=== PATIENT | female | born 2000 ===

== ENCOUNTER 2024-05-31 20:45 | Outpatient (REF) | payer OTHER, SELFPAY ==
[2024-06-11 21:06] LABS: Age Gdln ACOG Testing Note (.); HPV Aptima Positive (Negative); IGP, rfx Aptima HPV ASCU Note (.)
== END 2024-05-31 20:46 | disposition home or self-care (01) ==
LOC: LAB 20:45
PROVIDERS: Visit Provider Obstetrics & Gynecology
DX: Z01.419 Encounter for gynecological examination (general) (routine) without abnormal findings (principal)
CPT/HCPCS: 87624; 88175

== ENCOUNTER 2024-07-13 09:13 | Outpatient (OUT) | payer OTHER, SELFPAY ==
--- OUTSIDE RECORDS SUMMARY | 2024-07-16 09:26 | XMS_ITS | CCD ---
Author Organization [facility] Care Team Providers Care Supervisor Cemetery Workers Name Role Phone Eric Grubbs Primary Care Provider Unavailramiro Grubbs MD, Eric Waters Primary Care Provider Puma CAN, Nichole Primary Care Provider Puma CAN, Nichole Primary Care Provider [phone] Puma CAN, Nichole Primary Care Provider KHAVARI, FERESHTE Primary Care Unavailable KHAVARI, FERESHTE Referring Unavailable KHAVARI, FERESHTE Attending Unavailable SELF, SELF Referring Unavailable KERESTESEARNESTINE Attending Unavailable KHAVARI, FERESHTE Primary Care Unavailable SELF, SELF Referring Unavailable KERESTESEARNESTINE Attending Unavailable KHAVARI, FERESHTE Primary Care Unavailable KHAVARI, FERESHTE Primary Care Unavailable RUDDY RICE Admitting Unavailable RUDDY RICE Consulting Unavailable RUDDY RICE Attending Unavailable KHAVARI, FERESHTE Primary Care Unavailable KHAVARI, FERESHTE Primary Care Unavailable RUDDY RICE Attending Unavailable Puma CAN, Nichole Primary Care Provider ASHLY INFANTE Attending Unavailable KHAVARI, FERESHTE Referring Unavailable KHAVARI, FERESHTE Primary Care Unavailable KHAVARI, FERESHTE Primary Care Unavailable KHAVARI, FERESHTE Attending Unavailable KHAVARI, FERESHTE Referring Unavailable KHAVARI, FERESHTE Primary Care Unavailable KHAVARI, FERESHTE Attending Unavailable KHAVARI, FERESHTE Referring Unavailable KHAVARI, FERESHTE Primary Care Unavailable CHRISTEL COKER Attending Unavailable KHAVARI, FERESHTE Referring Unavailable KHAVARI, FERESHTE Primary Care Unavailable CHRISTEL COKER Admitting Unavailable CHRISTEL COKER Attending Unavailable ZAGHLOOL, CHRISTEL S Referring Unavailable SELF, SELF Referring Unavailable KHAVARI, FERESHTE Primary Care Unavailable KHAVARI, FERESHTE Attending Unavailable SELF, SELF Referring Unavailable KHAVARI, FERESHTE Primary Care Unavailable KHAVARI, FERESHTE Attending Unavailable ARELIS, ASHLY Attending Unavailable ARELIS, ASHLY Referring Unavailable KHAVARI, FERESHTE Primary Care Unavailable FELIPE, KEVON Attending Unavailable CHER CRAWFORD Attending Unavailable FELIPE, KEVON Attending Unavailable FELIPE, KEVON Attending Unavailable FELIPE, KEVON Attending Unavailable Medications Current Medications Medication Drug Class(es) Dates Sig (Normalized) Sig (Original) atomoxetine 40 mg oral capsule (19 sources) Norepinephrine Reuptake Inhibitor Start: 03-12-2024 take 1 capsule by mouth in the morning atomoxetine (Strattera) 40 MG capsule Take 40 mg by mouth in the morning. 03/12/2024 Active Start: 09-09-2023 End: 03-12-2024 take 1 capsule by mouth once daily atomoxetine 25 MG capsule Take 1 capsule by mouth daily. 30 capsule 2 09/09/2023 03/12/2024 Discontinued 24 hr buPROPion hydrochloride 150 mg extended release oral tablet (6 sources) Aminoketone Start: 02-04-2020 take 1 tablet by mouth once daily in the morning buPROPion 150 MG tablet XL Indications: Other specified anxiety disorders Take 1 tablet by mouth daily every morning. 30 tablet 5 02/04/2020 Active Start: 08-19-2019 End: 01-03-2020 take 1 tablet by mouth once daily in the morning buPROPion 150 MG tablet XL Indications: Other specified anxiety disorders Take 1 tablet by mouth daily every morning. 30 tablet 2 08/19/2019 01/03/2020 Discontinued (Reorder) doxycycline hyclate 100 mg oral capsule (1 source) Tetracycline-class Drug Start: 06-26-2022 End: 07-03-2022 take 1 capsule by mouth twice daily doxycycline hyclate 100 MG capsule Indications: Chlamydia infection Take 1 capsule by mouth 2 times daily for 7 days. 14 capsule 0 06/26/2022 07/03/2022 Active fexofenadine / Pseudoephedrine (20 sources) alpha-Adrenergic Agonist, Histamine-1 Receptor Antagonist Fexofenadine-Pse udoephedrine (RODRIGUEZ-D 24 HOUR PO) Take by mouth daily as needed. Active Fexofenadine-Pse udoephedrine (RODRIGUEZ-D 24 HOUR PO) Take by mouth daily as needed. 0 Active hydrOXYzine hydrochloride 25 mg oral tablet (20 sources) Antihistamine Start: 05-07-2022 End: 09-09-2023 take 1 tablet by mouth every twenty-four hours as needed hydrOXYzine HCl (Atarax) 25 MG tablet Take 25 mg by mouth Daily as needed 09/09/2023 Active levonorgestrel 0.120766 mg/hr intrauterine system (12 sources) Progestin, Progestin-containi ng Intrauterine Device Start: 05-03-2024 End: 05-02-2029 Levonorgestrel intrauterine device 52 mg Start: 05-03-2024 End: 05-03-2024 Levonorgestrel intrauterine device 52 mg Start: 05-03-2024 End: 05-03-2024 52 mg, Vaginal, Once PRN Pro cedure, Starting on 05/03/24 at 1130, For 1 dose 24 hr metFORMIN hydrochloride 500 mg extended release oral tablet (11 sources) Biguanide Start: 03-30-2024 End: 03-30-2025 take 1 tablet by mouth every twenty-four hours at mealtime metFORMIN XR (Glucophage-XR) 500 MG 24 hr tablet Indications: Insulin resistance Take 1 tablet (500 mg) by mouth in the evening. Take with meals Do not crush, chew, or split. 30 tablet 03/30/2024 03/30/2025 Active ondansetron 4 mg disintegrating oral tablet (2 sources) Serotonin-3 Receptor Antagonist Start: 04-22-2024 End: 05-22-2024 take 1 tablet by mouth every six hours as needed for nausea and vomiting and nausea and nausea ondansetron ODT (Zofran-ODT) 4 MG disintegrating tablet Indications: Nausea Take 1 tablet (4 mg) by mouth every 6 (six) hours if needed for nausea or vomiting 30 tablet 04/22/2024 05/22/2024 Active End: 02-14-2023 take 1 tablet by mouth once daily, then take 0.5 tablet by mouth once daily Ondansetron 4 MG tablet Take 1 tablet by mouth daily. 1/2 tab daily 0 02/14/2023 Discontinued phentermine hydrochloride 37.5 mg oral tablet (20 sources) Sympathomimetic Amine Anorectic Start: 05-03-2024 End: 07-28-2024 take 1 tablet by mouth before mealtime phentermine (Adipex-P) 37.5 MG tablet Indications: Encounter for weight management Take 1 tablet (37.5 mg) by mouth in the morning. Take before meals. 30 tablet 06/28/2024 07/28/2024 Active Start: 04-10-2021 End: 02-07-2022 take 1 tablet by mouth once daily before breakfast phentermine 37.5 MG tablet Indications: Obesity, Class II, BMI 35-39.9 , Chronic back pain, unspecified back location, unspecified back pain laterality Take 1 tablet by mouth every morning before breakfast. 30 tablet 0 04/10/2021 02/07/2022 Discontinued (Therapy completed) spironolactone 100 mg oral tablet (20 sources) Aldosterone Antagonist take 1 tablet by mouth in the morning spironolactone (Aldactone) 100 MG tablet Take 100 mg by mouth in the morning. Active Tirzepatide 2.5 MG/0.5ML Solution Pen-injector (2 sources) Start: 024 inject 2.5 mg by subcutaneous injection every week Tirzepatide 2.5 MG/0.5ML Solution Pen-injector Inject 2.5 mg under the skin once a week. 2 mL 03/12/2024 Active Start: 03-12-2024 End: 03-12-2024 inject 2.5 mg by subcutaneous injection every week Tirzepatide 2.5 MG/0.5ML Solution Pen-injector Inject 2.5 mg under the skin once a week. 2 mL 03/12/2024 03/12/2024 Discontinued 24 hr venlafaxine 75 mg extended release oral capsule (20 sources) Serotonin and Norepinephrine Reuptake Inhibitor Start: 03-12-2024 take 1 capsule by mouth every twenty-four hours in the morning venlafaxine XR (Effexor XR) 75 MG 24 hr capsule Take 75 mg by mouth in the morning. 03/12/2024 Active Start: 05-14-2022 End: 03-12-2024 take 1 capsule by mouth once daily Venlafaxine 75 MG Cap SR 24HR capsule XR Take 1 capsule by mouth daily. 90 capsule 3 03/12/2024 Active Start: 05-14-2022 take 1 capsule by mo wih once daily venlafaxine 75 MG Cap SR 24HR capsule XR Take 1 capsule by mouth daily. 30 capsule 0 05/14/2022 Active Start: 05-07-2022 End: 05-14-2022 take 1 capsule by mouth once daily venlafaxine 37.5 MG Cap SR 24HR capsule XR Take 1 capsule by mouth daily for 7 days. 7 capsule 0 05/07/2022 05/14/2022 Active Completed/Discontinued Medications Medication Drug Class(es) Dates Sig (Normalized) Sig (Original) ethinyl estradiol 0.035 mg / norgestimate 0.25 mg oral tablet (2 sources) Progestin, Estrogen Start: 06-05-2021 End: 02-07-2022 take 1 tablet by mouth once daily norgestimate-ethiny l estradiol 0.25-35 MG-MCG tablet Indications: Encounter for surveillance of contraceptive pills Take 1 tablet by mouth daily. 84 tablet 2 06/05/2021 02/07/2022 Discontinued (Patient Preference) Start: 01-23-2018 take 1 tablet by claudia once daily norgestimate-ethinyl estradiol 0.25-35 MG-MCG Tab tablet Indications: Encounter for initial prescription of contraceptive pills Take 1 tablet by mouth daily. 1 Package 3 01/23/2018 Active fluconazole 150 mg oral tablet (3 sources) Azole Antifungal Start: 08-21-2018 End: 08-19-2019 fluconazole 150 MG Tab tablet Indications: Candidiasis of breast Take one tablet by oral route now and repeat second dose in 72 hours as needed for irritation 2 tablet 0 08/21/2018 08/19/2019 Discontinued (Therapy completed) Start: 08-14-2018 End: 08-21-2018 fluconazole 150 MG Tab table t Indications: Candidiasis of breast Take one tablet by oral route now and repeat second dose in three days 2 tablet 0 08/14/2018 08/21/2018 Discontinued hydrocortisone acetate 25 mg rectal suppository (3 sources) Corticosteroid Start: 03-17-2024 End: 04-30-2024 hydrocortisone 25 MG Suppository Insert 1 suppository rectally every 12 hours. 12 suppository 03/17/2024 04/30/2024 Discontinued (Stop Taking at Discharge) Start: 03-12-2024 hydrocortisone 25 MG Suppository Insert 1 suppository rectally every 12 hours. 12 suppository 03/12/2024 Active oseltamivir 75 mg oral capsule (1 source) Neuraminidase Inhibitor Start: 06-10-2019 End: 08-19-2019 take 1 capsule by mouth twice daily oseltamivir (TAMIFLU) 75 MG Cap capsule Take 1 capsule by mouth 2 times daily. 10 capsule 0 06/10/2019 08/19/2019 Discontinued (Therapy completed) 1 mg dose 1.5 ml semaglutide 1.34 mg/ml pen injector (1 source) End: 02-14-2023 inject 1 mg by subcutaneous injection every week Semaglutide, 1 MG/DOSE, 2 MG/1.5ML Solution Pen-injector Inject 1 mg under the skin once a week. 0 02/14/2023 Discontinued 1000 ml sodium chloride 9 mg/ml injection (1 source) Start: 04-30-2024 End: 05-01-2024 Intravenous, at 100 mL/hr, CONTINUOUS, Starting on Fri04/30/24 at 0715, Until 05/01/24 at 0238 Tirzepatide (MOUNJARO SC) (6 sources) End: 03-12-2024 inject 0.5 mg by subcutaneous injection every week Tirzepatide (MOUNJARO SC) Inject 0.5 mg under the skin once a week. 03/12/2024 Discontinued inject 0.5 mg by sub cutaneous injection every week Tirzepatide (MOUNJARO SC) Inject 0.5 mg under the skin once a week. Active inject 0.5 mg by sub cutaneous injection every week Tirzepatide (MOUNJARO SC) Inject 0.5 mg under the skin once a week. 0 Active Tirzepatide 2.5 MG/0.5ML Solution Auto-injector (2 sources) Start: 03-26-2024 End: 04-30-2024 inject 2.5 mg by subcutaneous injection every week Tirzepatide 2.5 MG/0.5ML Solution Auto-injector Inject 2.5 mg under the skin once a week. 2 mL 03/26/2024 04/30/2024 Discontinued (Stop Taking at Discharge) Start: 03-26-2024 inject 2.5 mg by sub cutaneous injection every week Tirzepatide 2.5 MG/0.5ML Solution Auto-injector Inject 2.5 mg under the skin once a week. 2 mL 03/26/2024 Active Problems Active Problems Problem Classification Problem Date Documented Da te Episodic/Chronic Anal and rectal conditions (3 sources) Disorder of rectum; Translations: [Anal fissure, unspecified] Onset: 03-12-2024 03-12-2024 Episodic Anxiety disorders (8 sources) Anxiety disorder; Translations: [Mixed anxiety and depressive disorder] Onset: 09-09-2023 Chronic Attention-deficit, conduct, and disruptive behavior disorders (2 sources) Attention deficit hyperactivity disorder, combined type; Translations: [Attention-deficit hyperactivity disorder, combined type] 09-09-2023 Chronic Attention-deficit, conduct, and disruptive behavior disorders (2 sources) Attention-deficit hyperactivity disorder, combined type; Translations: [Attention-deficit hyperactivity disorder, combined type] Onset: 03-12-2024 Chronic Bacterial infection; unspecified site (1 source) Chlamydial infection; Translations: [Chlamydial infection, unspecified] Episodic Contraceptive and procreative management (2 sources) Contraception ; Translations: [Encounter for surveillance of injectable contraceptive] 05-31-2024 Episodic Gastrointestinal hemorrhage (6 sources) Rectal hemorrhage; Translations: [Hemorrhage of anus and rectum] Onset: 04-20-2024 04-20-2024 Episodic Immunizations and screening for infectious disease (12 sources) Patient encounter status; Translations: [Encounter for screening for infections with a predominantly sexual mode of transmission] Onset: 01-23-2023 Episodic Malaise and fatigue (1 source) Fatigue; Translations: [Chronic fatigue, unspecified] Chronic Malaise and fatigue (1 source) Fatigue; Translations: [Other fatigue] Episodic Miscellaneous mental health disorders (1 source) Insomnia disorder related to another mental disorder; Translations: [Insomnia due to other mental disorder] Chronic Mood disorders (20 sources) Seasonal affective disorder; Translations: [Depressive disorder] Onset: 10-20-2017 Resolved: 10-20-2017 10-20-2017 Chronic Mycoses (1 source) Candidiasis; Translations: [Candidiasis of breast] Episodic Nutritional deficiencies (1 source) Vitamin D deficiency; Translations: [Vitamin D deficiency, unspecified] Chronic Other ear and sense organ disorders (1 source) Impacted cerumen in right ear; Translations: [Impacted cerumen, right ear] Episodic Other ear and sense organ disorders (1 source) Impacted cerumen of bilateral ears; Translations: [Impacted cerumen, bilateral] 03-12-2024 Episodic Other ear and sense organ disorders (2 sources) Impacted cerumen, bilateral; Translations: [Impacted cerumen, bilateral] Onset: 03-12-2024 Episodic Other nervous system disorders (2 sources) Other acute postprocedural pain; Translations: [Other acute postprocedural pain] Onset: 12-06-2023 Episodic Other nutritional; endocrine; and metabolic disorders (15 sources) Obese class II; Translations: [Obesity, unspecified] Onset: 08-19-2019 08-19-2019 Chronic Other nutritional; endocrine; and metabolic disorders (4 sources) Morbid obesity; Translations: [Morbid (severe) obesity due to excess calories] Chronic Other nutritional; endocrine; and metabolic disorders (2 sources) Insulin resistance; Translations: [Insulin resistance] 03-30-2024 Chronic Other nutritional; endocrine; and metabolic disorders (2 sources) Morbid (severe) obesity due to excess calories; Translations: [Morbid (severe) obesity due to excess calories] Onset: 03-12-2024 Chronic Other nutritional; endocrine; and metabolic disorders (2 sources) Weight increased; Translations: [Abnormal weight gain] 05-31-2024 Episodic Other nutritional; endocrine; and metabolic disorders (5 sources) Obese class II; Translations: [Obesity, Class II, BMI 35-39.9] Onset: 08-19-2019 08-19-2019 Other skin disorders (1 source) Acne; Translations: [Acne, unspecified] Episodic Residual codes; unclassified (2 sources) Personal history of other specified conditions; Translations: [Personal history of other specified conditions] Onset: 12-24-2023 Episodic Unclassified (2 sources) Patient encounter status; Translations: [Encounter for gynecological examination without abnormal finding] Unclassified (2 sources) New Patient; Translations: [New Patient] Onset: 11-13-2023 Past or Other Problems Problem Classification Problem Date Documented Date Episodic/Chronic Abdominal pain (6 sources) Right lower quadrant pain; Translations: [Abdominal pain] Onset: 10-01-2023 Episodic Biliary tract disease (5 sources) Cholelithiasis without obstruction; Translations: [Calculus of gallbladder without cholecystitis without obstruction] Onset: 12-06-2023 11-13-2023 Episodic Mood disorders (13 sources) Mood disorders Onset: 08-19-2019 Resolved: 03-12-2024 08-19-2019 Nonmalignant breast conditions (20 sources) Large breast; Translations: [Hypertrophy of breast] Onset: 12-01-2019 12-01-2019 Episodic Nutritional deficiencies (13 sources) Cobalamin deficiency; Translations: [Deficiency of other specified B group vitamins] Onset: 01-23-2021 01-23-2021 Episodic Other skin disorders (2 sources) Skin tag; Translations: [Acquired skin tag] Episodic Residual codes; unclassified (19 sources) Chronic back pain ; Translations: [Dorsalgia, unspecified] Onset: 12-01-2019 12-01-2019 Episodic Spondylosis; intervertebral disc disorders; other back problems (1 source) Chronic thoracic back pain; Translations: [Chronic midline thoracic back pain] Episodic Results Test Name Value Interpretation Reference Range Facility IGP,APTIMA HPV,AGE GDLNon AGE GDLN ACOG TESTING Note . [facility] Comment on above: TESTS RESULT FLAG UN ITS REF RANGE LAB Clinician Provided Cytology Information Source.............Cervix;Endocervix No. of containers..01 ThinPrep Vial Age Algo ACOG Yamilka... FLAG LEGEND: L-Low Normal,H-High Normal,LL-Alert Low,HH-Alert High <-Panic Low,>-Panic High,A-Abnormal,AA-Critical Abnormal Performed at: 01 =[address] [address] Estrella Wilson MD, HPV APTIMA Positive Abnormal Negative [facility] Comment on above: This nucleic acid am plification test detects fourteen high- risk HPV types (16,18,31,33,35,39,45,51,52,56,58,59,66,68) without differentiation. Performed at: =[address], [place] [id number] Turbine Engineer: Estrella Wilson MD, Phone: [phone] Performed at: [address] [id number] Turbine Engineer: Estrella Wilson MD, Phone: [phone] IGP, RFX APTIMA HPV ASCU Note Abnormal . [facility] Comment on above: TESTS RESULT FLAG UN ITS REF RANGE LAB DIAGNOSIS: [A] 02 EPITHELIAL CELL ABNORMALITY. ATYPICAL SQUAMOUS CELLS OF UNDETERMINED SIGNIFICANCE (ASC-US). Recommendation: [A] 02 Suggest follow up as clinically appropriate. Specimen adequacy: 02 Satisfactory for evaluation. Endocervical and/or squamous metaplastic cells (endocervical component) are present. Performed by: 02 Jose Juan Koo, [place] ([facility]) Electronically si... 02 Estrella Wilson MD, Pathologist . 02 Pathologist ICD10: 02 R87.610 Note: Note 02 The Pap smear is a screening test designed to aid in the detection of premalignant and malignant conditions of the uterine cervix. It is not a diagnostic procedure and should not be used as the sole means of detecting cervical cancer. Both false-positive and false-negative reports do occur. Test Methodology: Note 02 This liquid based ThinPrep(R) pap test was screened with the use of an image guided system. . 02 See below for HPV testing results. FLAG LEGEND: L-Low Normal,H-High Normal,LL-Alert Low,HH-Alert High <-Panic Low,>-Panic High,A-Abnormal,AA-Critical Abnormal Performed at: [address] [address] Estrella Wilson MD, Interpretation and review of laboratory results Abnormal [facility] BRUSH-SPATULA CERVIX ENDOCERVIX [facility] RECURRENT VAGINITIS (HTRX)on 06-03-2024 ATOPOBIUM VAGINAE 0 [facility] ATOPOBIUM VAGINAE Not detected [facility] BVAB 2,3 (BACTERIAL VAGINOSIS ASSOCIATED BACTERIA 2, 3); MOBILUNCUS SPP 0 [facility] BVAB 2,3 (BACTERIAL VAGINOSIS ASSOCIATED BACTERIA 2, 3); MOBILUNCUS SPP Not detected [facility] EDIL ALBICANS, PARAPSILOSIS, TROPICALIS 0 [facility] EDIL ALBICANS, PARAPSILOSIS, TROPICALIS Not detected [facility] Healthcare EDIL GLABRATA 0 [facility] Healthcare EDIL GLABRATA Not detected [facility] Healthcare EDIL KRUSEI 0 [facility] Healthcare EDIL KRUSEI Not detected [facility] Healthcare CHLAMYDIA TRACHOMATIS 0 [facility] CHLAMYDIA TRACHOMATIS Not detected [facility] GARDNERELLA VAGINALIS 0 [facility] GARDNERELLA VAGINALIS Not detected [facility] MEGASPHAERA (TYPES 1, 2) 0 [facility] MEGASPHAERA (TYPES 1, 2) Not detected [facility] MYCOPLASMA GENITALIUM 0 [facility] MYCOPLASMA GENITALIUM Not detected [facility] NEISSERIA GONORRHOEAE 0 [facility] NEISSERIA GONORRHOEAE Not detected [facility] TRICHOMONAS VAGINALIS 0 [facility] TRICHOMONAS VAGINALIS Not detected [facility] Healthcare HCG ( test) Ql (U)o n 05-03-2024 Interpretation and review of laboratory results Normal [facility] Preg Test, Ur Negative Negative [facility] IUD Insertionon 05-03-2024 Chaparritamckinley Cadet LPN 05/03/2024 1:40 PM IUD Insertion Performed by: Kevon Wang DO Authorized by: Kevon Wang DO Procedure: IUD insertion Consent obtained by patient, parent, or legal power of state's attorney - including discussion of procedure risks and benefits, patient questions answered, and patient education provided: yes risk: reasonably certain the patient is not Date/Time of Insertion: 05/03/2024 11:44 AM Immediately prior to procedure a time out was called: no Pelvic exam performed: no Speculum placed in vagina: yes Cervix cleaned and prepped: yes Tenaculum/Allis/Ring Forceps applied to cervix: yes Anesthesia used: no IUD inserted without complications: yes OSM: 52 mg Levonorgestrel 20 MCG/DAY; 52 mg Mirena IUD (5 years) Patient tolerated procedure well: yes Inserted with ultrasound guidance: no Intended removal date: 5 years Insertion comments: IUD Insertion: Patient presents today for an IUD Insertion. Patient is having a Mirena placed and written consent was obtained. Patient was placed in the dorsal lithotomy position with feet in stirrups. A sterile speculum ws placed into the vagina and the cervix was visualized. Cervix was cleansed with betadine and the anterior lip was grasped with ring forceps. Uterus was then gently sounded. New IUD device was gently advanced through the endocervix, toward te uterine fundus. The IUD was then deployed as device was gently removed from the uterus. The IUD strings were cut to the length from external os. All instruments were removed from the vagina. Post-procedure instructions given. All of patients questions were answered and she expressed understanding. Advised to call interim with any questions or concerns. Patient presents today for initial Adipex prescription. The importance of keeping a food journal, proper nutrition/diet, and exercise regimen while taking Adipex has been discussed. Patient verbalized understanding and signed consents to initiate (Adipex) medication therapy. Patient was given a printed prescription signed by provider to take to their local pharmacy. Follow Up: Patient is to return to the office in 1 month for further evaluation to assess patient progress. Weight and blood pressure will need to be captured in order for patient to receive 2nd prescription. Follow Up: Patient is to return to the office in 4 weeks for a string check. [facility] [employer] IUD InsertionOrdered By: Andrew Cadet on 05-03-2024 [facility] [employer] DIAGNOSTIC COLONOSCOPYon Body surface area Derived from formula 2.15 m2 [employer] System [facility] Gastroenterology Patient Name: Javon Montoya Procedure Date: 04/30/2024 6:51 AM Date of : 2000 Admit Type: Outpatient Age: 23 Room: Endo Room1 Gender: Female Note Status: Finalized Attending MD: Ashly Infante MD, Instrument Name: [id number] Procedure: Colonoscopy Attending Participation: I personally performed the entire procedure. Indications: This is the patient's first colonoscopy, Rectal bleeding Providers: Ashly Infante MD Referring MD: Ashly Infante MD Complications: No immediate complications. Estimated Blood Loss: Estimated blood loss: none. Medicines: General Anesthesia Procedure: Pre-Anesthesia Assessment: - This assessment was completed [Time of Assessment] prior to the administration of sedation. After I obtained informed consent, the scope was passed under direct vision. Throughout the procedure, the patient's blood pressure, pulse, and oxygen saturations were monitored continuously. The Colonoscope was introduced through the anus and advanced to the cecum, identified by appendiceal orifice and ileocecal valve. The colonoscopy was performed without difficulty. The patient tolerated the procedure well. The quality of the bowel preparation was good. The ileocecal valve, the appendiceal orifice and the rectum were photographed. Findings: The perianal and digital rectal examinations were normal. The colon (entire examined portion) appeared normal. Impression: - The entire examined colon is normal. - No specimens collected. Recommendation: - Discharge patient to home. - Resume previous diet. Procedure Code(s): --- Professional --- 68970, Colonoscopy, flexible; diagnostic, including collection of specimen(s) by brushing or washing, when performed (separate procedure) Diagnosis Code(s): --- Professional --- K62.5, Hemorrhage of anus and rectum CPT copyright 2022 [employer]. All rights reserved. The codes documented in this report are preliminary and upon top trimmer review may be revised to meet current compliance requirements. MD Ashly Rasmussen MD 04/30/2024 8:11:19 AM This report has been signed electronically. Number of Addenda: 0 Note Initiated On: 04/30/2024 6:51 AM LAB, [facility] Radiology Study observation (narrative) [facility] OP NOTEon 12-12-2023 OP NOTE JAVON MONTOYA [id number] 2000 DATE 12/07/2023 OPERATIVE REPORT SURGEON RUDDY RICE DO ANESTHESIOLOGIST DR. JORDAN PREOPERATIVE DIAGNOSIS Acute cholecystitis. POSTOPERATIVE DIAGNOSIS Acute on chronic cholecystitis. PROCEDURE Laparoscopic cholecystectomy. ESTIMATED BLOOD LOSS Minimal. FLUIDS Please see OR record. COMPLICATIONS None apparent. SPECIMENS Gallbladder and contents. INDICATIONS This is a 23-year-old woman who presents to the hospital with complaints of acute onset of right upper quadrant abdominal pain. The decision was made to undergo laparoscopic cholecystectomy. The procedure, risks, benefits, and alternatives were explained. The patient voiced understanding and agreed to proceed. Consent was obtained and placed on the chart. DESCRIPTION OF PROCEDURE The patient was brought to the operating suite, placed in the supine position. General anesthesia was then induced. She was then prepped and draped in usual sterile fashion. A time-out was then performed, at which point in time it was documented she had received the appropriate preoperative antibiotics. Local anesthetic was then injected infraumbilically, and a transverse skin incision was made. Blunt dissection was used to dissect down to the level of the fascia, was elevated, incised sharply. Stay sutures were placed on the other side of this. The peritoneum was identified, elevated, incised sharply, thus gaining entry into the abdominal cavity. Alannah trocar was inserted. Pneumoperitoneum was established. There was no evidence of any injury upon entry. Brief surveillance of bilateral upper and lower quadrants of the abdomen failed to demonstrate any acute abnormality. The patient was then repositioned into reverse Trendelenburg and left lateral rotation. Three additional 5 mm trocars were placed, 1 in the mid-epigastrium and 2 in the right upper quadrant. I utilized local prior to their insertion. They were inserted without apparent complication. The gallbladder was then identified. I attempted to retract it cephalad. However, it is slightly distended. She had acute on chronic inflammation present. I had to needle decompress the gallbladder. After decompression of the gallbladder, I was then able to begin to retract it cephalad. She has adhesions between the omentum and the gallbladder, and these were taken down with a combination of blunt and cautery dissection. She has a lot of inflammation, which is most significant around the neck of the gallbladder. I circumferentially dissected out the cystic artery and duct. I milked the duct, and there were no stones within it. I elected to stay higher up on the duct to avoid dissection. I elected to stay higher on the cystic duct in order to prevent any injury. Because of this, I elected to upsize my trocar to a 10 mm trocar in the epigastrium so I can fire the laparoscopic RENATA stapler across this. When I looked at the proximal staple line, I thought there was a stone left within the staple line, or a stone crushed in the staple line. I then clipped the cystic artery. I placed 2 clips proximal, 1 clip distally, and divided in between. I continued to dissect the gallbladder off the liver bed with cautery, controlling for hemostasis along the way after the gallbladder was disconnected, and placed in the EndoCatch bag and removed from the periumbilical trocar site. I palpated the gallbladder. There were only a few stones palpable within the gallbladder. I inspected my staple line. It is hemostatic. The clips on the cystic artery are in place. There is no bleeding or bile leakage present. The liver bed is hemostatic. I irrigated the right upper quadrant copiously until the irrigant returned clear. I injected local at all trocar sites. Trocars were removed under direct visualization. Pneumoperitoneum was released. Fascia of the periumbilical incision was reapproximated using Vicryl stitch. Skin incisions were closed with 4-0 Monocryl subcuticular stitch. The skin was then and with Steri-Strips, and sterile dressings were applied. At the end of the case, all sponge and needle counts were correct. Patient was awakened and taken to the recovery area in stable condition without apparent complications. DO Eugenia WEBER 12/12/2023 09:04 [id number] T 12/12/2023 09:30 MJW/MODL AUTHENTICATED BY RUDDY RICE, ON 12/15/2023 09:44:10 Normal CBCon 12-08-2023 AUTO NRBC 0.0 % Normal Comment on above: Performed By: #### 4 [id number] #### [facility] [address] [place] [address] Shmuel Horner M.D. [id number] AUTO NRBC ABS COUNT 0.00 K/mcL Normal 0.00-0.00 Comment on above: Performed By: #### 4 [id number] #### [facility] [address] [place] [address] Shmuel Horner M.D. [id number] Erythrocyte distribution width (RBC) [Ratio] 11.6 % Normal 11.6-14.8 Comment on above: Performed By: #### 4 [id number] #### [facility] [address] [place] [address] Shmuel Horner M.D. [id number] Hematocrit (Bld) [Volume fraction] 35.2 % Low 36.0-46.0 Comment on above: Performed By: #### 4 [id number] #### [facility] [address] [place] [address] Shmuel Horner M.D. [id number] Hemoglobin (Bld) [Mass/Vol] 12.0 g/dL Normal 12.0-16.0 Comment on above: Performed By: #### 4 [id number] #### [facility] [address] [place] [address] Shmuel Horner M.D. [id number] MCH (RBC) [Entitic mass] 29.1 pg Normal 26.0-34.0 Comment on above: Performed By: #### 4 [id number] #### [facility] [address] [place] [address] Shmuel Horner M.D. [id number] MCV (RBC) [Entitic vol] 85.2 fL Normal 80.0-100.0 Comment on above: Performed By: #### 4 [id number] #### [facility] [address] [place] [address] Shmuel Horner M.D. [id number] MEAN CORPUSCULAR HEMOGLOBIN CONC 34.1 g/dL Normal 31.0-37.0 Comment on above: Performed By: #### 4 [id number] #### [facility] [address] [place] [address] Shmuel Horner M.D. [id number] Platelet mean volume (Bld) [Entitic vol] 9.2 fL Low 9.4-12.4 Comment on above: Performed By: #### 4 [id number] #### [facility] [address] [place] [address] Shmuel Horner M.D. [id number] Platelets (Bld) [#/Vol] 240 10*3/uL Normal 150-400 Comment on above: Performed By: #### 4 [id number] #### [facility] [address] [place] [address] Shmuel Horner M.D. [id number] RBC (Bld) [#/Vol] 4.13 10*6/uL Normal 4.00-5.20 Comment on above: Performed By: #### 4 [id number] #### [facility] [address] [place] [address] Shmuel Horner M.D. [id number] WBC (Bld) [#/Vol] 8.22 10*3/uL Normal 4.50-11.00 Comment on above: Performed By: #### 4 [id number] #### [facility] [address] [place] [address] Shmuel Horner M.D. [id number] COMPREHENSIVE METABOLIC PANE Geoff 12-08-2023 Albumin [Mass/Vol] 3.4 g/dL Normal 3.2-5.2 Comment on above: Order Comment: [facility] has implemented the eGFR calculation approach that does not have a coefficient for race that conforms to the NKF-ASN Task Force Recommendations. Performed By: #### 4 [id number] #### [facility] [address] [place] [address] Shmuel Horner M.D. [id number] ALP [Catalytic activity/Vol] 93 U/L Normal 40-140 Comment on above: Order Comment: [facility] has implemented the eGFR calculation approach that does not have a coefficient for race that conforms to the NKF-ASN Task Force Recommendations. Performed By: #### 4 [id number] #### [facility] [address] [place] [address] Shmuel Horner M.D. [id number] ALT [Catalytic activity/Vol] 81 U/L High 0-35 U/L Comment on above: Order Comment: [facility] has implemented the eGFR calculation approach that does not have a coefficient for race that conforms to the NKF-ASN Task Force Recommendations. Performed By: #### 4 [id number] #### [place] [address] Shmuel Horner M.D. [id number] Anion gap [Moles/Vol] 14 mmol/L Normal 10-20 [facility] Comment on above: Order Comment: [facility] has implemented the eGFR calculation approach that does not have a coefficient for race that conforms to the NKF-ASN Task Force Recommendations. Performed By: #### 4 [id number] #### [place] [address] Shmuel Horner M.D. [id number] AST [Catalytic activity/Vol] 34 U/L Normal 0-35 U/L Comment on above: Order Comment: [facility] has implemented the eGFR calculation approach that does not have a coefficient for race that conforms to the NKF-ASN Task Force Recommendations. Performed By: #### 4 [id number] #### [facility] [address] [place] [address] Shmuel Horner M.D. [id number] Bilirubin [Mass/Vol] 0.4 mg/dL Normal 0.0-1.3 [facility] Comment on above: Order Comment: [facility] has implemented the eGFR calculation approach that does not have a coefficient for race that conforms to the NKF-ASN Task Force Recommendations. Performed By: #### 4 [id number] #### [facility] [address] [place] [address] Shmuel Horner M.D. [id number] Calcium [Mass/Vol] 8.7 mg/dL Normal 8.4-10.2 Comment on above: Order Comment: [facility] has implemented the eGFR calculation approach that does not have a coefficient for race that conforms to the NKF-ASN Task Force Recommendations. Performed By: #### 4 [id number] #### [place] [address] Shmuel Horner M.D. [id number] Chloride [Moles/Vol] 106 mmol/L Normal 98-108 [facility] Comment on above: Order Comment: [facility] has implemented the eGFR calculation approach that does not have a coefficient for race that conforms to the NKF-ASN Task Force Recommendations. Performed By: #### 4 [id number] #### [place] [address] Shmuel Horner M.D. [id number] Creatinine [Mass/Vol] 0.90 mg/dL Normal 0.40-1.10 [facility] Comment on above: Order Comment: [facility] has implemented the eGFR calculation approach that does not have a coefficient for race that conforms to the NKF-ASN Task Force Recommendations. Performed By: #### 4 [id number] #### [place] [address] Shmuel Horner M.D. [id number] EGFR 91 mL/min/1.73 m2 Normal >=60 Comment on above: Order Comment: [facility] has implemented the eGFR calculation approach that does not have a coefficient for race that conforms to the NKF-ASN Task Force Recommendations. Result Comment: Uyen mated GFR was calculated using the 2020 CKD-EPI creatinine equation. Performed By: #### 4 [id number] #### [place] [address] Shmuel Horner M.D. [id number] Glucose [Mass/Vol] 99 mg/dL Normal 65-99 Comment on above: Order Comment: [facility] has implemented the eGFR calculation approach that does not have a coefficient for race that conforms to the NKF-ASN Task Force Recommendations. Performed By: #### 4 [id number] #### [facility] [address] [place] [address] Shmuel Horner M.D. [id number] HCO3 (Bld) [Moles/Vol] 25 mmol/L Normal 21-32 [facility] Comment on above: Order Comment: [facility] has implemented the eGFR calculation approach that does not have a coefficient for race that conforms to the NKF-ASN Task Force Recommendations. Performed By: #### 4 [id number] #### [place] [address] Shmuel Horner M.D. [id number] Potassium [Moles/Vol] 4.0 mmol/L Normal 3.5-5.1 [facility] Comment on above: Order Comment: [facility] has implemented the eGFR calculation approach that does not have a coefficient for race that conforms to the NKF-ASN Task Force Recommendations. Performed By: #### 4 [id number] #### [place] [address] Shmuel Horner M.D. [id number] Protein [Mass/Vol] 5.9 g/dL Low 6.0-8.0 Comment on above: Order Comment: [facility] has implemented the eGFR calculation approach that does not have a coefficient for race that conforms to the NKF-ASN Task Force Recommendations. Performed By: #### 4 [id number] #### [facility] [address] [place] [address] Shmuel Horner M.D. [id number] Sodium [Moles/Vol] 141 mmol/L Normal 135-145 Comment on above: Order Comment: [facility] has implemented the eGFR calculation approach that does not have a coefficient for race that conforms to the NKF-ASN Task Force Recommendations. Performed By: #### 4 [id number] #### [facility] [address] [place] [address] Shmuel Horner M.D. [id number] Urea nitrogen [Mass/Vol] 10 mg/dL Normal 8-25 Comment on above: Order Comment: [facility] has implemented the eGFR calculation approach that does not have a coefficient for race that conforms to the NKF-ASN Task Force Recommendations. Performed By: #### 4 [id number] #### [facility] [address] [place] [address] Shmuel Horner M.D. [id number] Urea nitrogen/Creatinine [Mass ratio] 11.1 mg/mg Normal 10.0-20.0 Comment on above: Order Comment: [facility] has implemented the eGFR calculation approach that does not have a coefficient for race that conforms to the NKF-ASN Task Force Recommendations. Performed By: #### 4 [id number] #### [facility] [address] [place] [address] Shmuel Horner M.D. [id number] CBCon 12-07-2023 AUTO NRBC 0.0 % Normal Comment on above: Performed By: #### 4 [id number] #### [place] [address] Shmuel Horner M.D. [id number] AUTO NRBC ABS COUNT 0.00 K/mcL Normal 0.00-0.00 Comment on above: Performed By: #### 4 [id number] #### [place] [address] Shmuel Horner M.D. [id number] Erythrocyte distribution width (RBC) [Ratio] 11.7 % Normal 11.6-14.8 Comment on above: Performed By: #### 4 [id number] #### [facility] [address] [place] [address] Shmuel Horner M.D. [id number] Hematocrit (Bld) [Volume fraction] 37.4 % Normal 36.0-46.0 Comment on above: Performed By: #### 4 [id number] #### [facility] [address] [place] [address] Shmuel Horner M.D. [id number] Hemoglobin (Bld) [Mass/Vol] 12.5 g/dL Normal 12.0-16.0 Comment on above: Performed By: #### 4 [id number] #### [facility] [address] [place] [address] Shmuel Horner M.D. [id number] MCH (RBC) [Entitic mass] 28.2 pg Normal 26.0-34.0 Comment on above: Performed By: #### 4 [id number] #### [facility] [address] [place] [address] Shmuel Horner M.D. [id number] MCV (RBC) [Entitic vol] 84.4 fL Normal 80.0-100.0 Comment on above: Performed By: #### 4 [id number] #### [facility] [address] [place] [address] Shmuel Horner M.D. [id number] MEAN CORPUSCULAR HEMOGLOBIN CONC 33.4 g/dL Normal 31.0-37.0 Comment on above: Performed By: #### 4 [id number] #### [facility] [address] [place] [address] Shmuel Horner M.D. [id number] Platelet mean volume (Bld) [Entitic vol] 9.0 fL Low 9.4-12.4 Comment on above: Performed By: #### 4 [id number] #### [facility] [address] [place] [address] Shmuel Horner M.D. [id number] Platelets (Bld) [#/Vol] 267 10*3/uL Normal 150-400 Comment on above: Performed By: #### 4 [id number] #### [facility] [address] [place] [address] Shmuel Horner M.D. [id number] RBC (Bld) [#/Vol] 4.43 10*6/uL Normal 4.00-5.20 Comment on above: Performed By: #### 4 [id number] #### [facility] [address] [place] [address] Shmuel Horner M.D. [id number] WBC (Bld) [#/Vol] 7.71 10*3/uL Normal 4.50-11.00 Comment on above: Performed By: #### 4 [id number] #### [facility] [address] [place] [address] Shmuel Horner M.D. [id number] COMPREHENSIVE METABOLIC PANE Geoff 12-07-2023 Albumin [Mass/Vol] 3.6 g/dL Normal 3.2-5.2 Comment on above: Order Comment: [facility] has implemented the eGFR calculation approach that does not have a coefficient for race that conforms to the NKF-ASN Task Force Recommendations. Performed By: #### 4 [id number] #### [facility] [address] [place] [address] Shmuel Horner M.D. [id number] ALP [Catalytic activity/Vol] 119 U/L Normal 40-140 Comment on above: Order Comment: [facility] has implemented the eGFR calculation approach that does not have a coefficient for race that conforms to the NKF-ASN Task Force Recommendations. Performed By: #### 4 [id number] #### [facility] [address] [place] [address] Shmuel Horner M.D. [id number] ALT [Catalytic activity/Vol] 126 U/L High 0-35 U/L Comment on above: Order Comment: [facility] has implemented the eGFR calculation approach that does not have a coefficient for race that conforms to the NKF-ASN Task Force Recommendations. Performed By: #### 4 [id number] #### [facility] [address] [place] [address] Shmuel Horner M.D. [id number] Anion gap [Moles/Vol] 13 mmol/L Normal 10-20 [facility] Comment on above: Order Comment: [facility] has implemented the eGFR calculation approach that does not have a coefficient for race that conforms to the NKF-ASN Task Force Recommendations. Performed By: #### 4 [id number] #### [facility] [address] [place] [address] Shmuel Horner M.D. [id number] AST [Catalytic activity/Vol] 93 U/L High 0-35 U/L Comment on above: Order Comment: [facility] has implemented the eGFR calculation approach that does not have a coefficient for race that conforms to the NKF-ASN Task Force Recommendations. Performed By: #### 4 [id number] #### [facility] [address] [place] [address] Shmuel Horner M.D. [id number] Bilirubin [Mass/Vol] 0.9 mg/dL Normal 0.0-1.3 [facility] Comment on above: Order Comment: [facility] has implemented the eGFR calculation approach that does not have a coefficient for race that conforms to the NKF-ASN Task Force Recommendations. Performed By: #### 4 [id number] #### [place] [address] Shmuel Horner M.D. [id number] Calcium [Mass/Vol] 8.6 mg/dL Normal 8.4-10.2 Comment on above: Order Comment: [facility] has implemented the eGFR calculation approach that does not have a coefficient for race that conforms to the NKF-ASN Task Force Recommendations. Performed By: #### 4 [id number] #### [place] [address] Shmuel Horner M.D. [id number] Chloride [Moles/Vol] 106 mmol/L Normal 98-108 [facility] Comment on above: Order Comment: [facility] has implemented the eGFR calculation approach that does not have a coefficient for race that conforms to the NKF-ASN Task Force Recommendations. Performed By: #### 4 [id number] #### [facility] [address] [place] [address] Shmuel Horner M.D. [id number] Creatinine [Mass/Vol] 0.83 mg/dL Normal 0.40-1.10 [facility] Comment on above: Order Comment: [facility] has implemented the eGFR calculation approach that does not have a coefficient for race that conforms to the NKF-ASN Task Force Recommendations. Performed By: #### 4 [id number] #### [facility] [address] [place] [address] Shmuel Horner M.D. [id number] EGFR 100 mL/min/1.73 m2 Normal >=60 Comment on above: Order Comment: [facility] has implemented the eGFR calculation approach that does not have a coefficient for race that conforms to the NKF-ASN Task Force Recommendations. Result Comment: Uyen mated GFR was calculated using the 2020 CKD-EPI creatinine equation. Performed By: #### 4 [id number] #### [facility] [address] [place] [address] Shmuel Horner M.D. [id number] Glucose [Mass/Vol] 89 mg/dL Normal 65-99 Comment on above: Order Comment: [facility] has implemented the eGFR calculation approach that does not have a coefficient for race that conforms to the NKF-ASN Task Force Recommendations. Performed By: #### 4 [id number] #### [facility] [address] [place] [address] Shmuel Horner M.D. [id number] HCO3 (Bld) [Moles/Vol] 23 mmol/L Normal 21-32 [facility] Comment on above: Order Comment: [facility] has implemented the eGFR calculation approach that does not have a coefficient for race that conforms to the NKF-ASN Task Force Recommendations. Performed By: #### 4 [id number] #### [facility] [address] [place] [address] Shmuel Horner M.D. [id number] Potassium [Moles/Vol] 4.0 mmol/L Normal 3.5-5.1 [facility] Comment on above: Order Comment: [facility] has implemented the eGFR calculation approach that does not have a coefficient for race that conforms to the NKF-ASN Task Force Recommendations. Performed By: #### 4 [id number] #### [facility] [address] [place] [address] Shmuel Horner M.D. [id number] Protein [Mass/Vol] 6.0 g/dL Normal 6.0-8.0 Comment on above: Order Comment: [facility] has implemented the eGFR calculation approach that does not have a coefficient for race that conforms to the NKF-ASN Task Force Recommendations. Performed By: #### 4 [id number] #### [facility] [address] [place], [place] [address] Shmuel Horner M.D. [id number] Sodium [Moles/Vol] 138 mmol/L Normal 135-145 Comment on above: Order Comment: [facility] has implemented the eGFR calculation approach that does not have a coefficient for race that conforms to the NKF-ASN Task Force Recommendations. Performed By: #### [id number] #### [facility] [address] [place] [id number] Shmuel Horner M.D. [id number] Urea nitrogen [Mass/Vol] 10 mg/dL Normal 8-25 Comment on above: Order Comment: [facility] has implemented the eGFR calculation approach that does not have a coefficient for race that conforms to the NKF-ASN Task Force Recommendations. Performed By: #### [id number] #### [facility] [address] [place] [id number] Shmuel Horner M.D. [id number] Urea nitrogen/Creatinine [Mass ratio] 12.0 mg/mg Normal 10.0-20.0 Comment on above: Order Comment: [facility] has implemented the eGFR calculation approach that does not have a coefficient for race that conforms to the NKF-ASN Task Force Recommendations. Performed By: #### [id number] #### [facility] [address] [place] [id number] Shmuel Horner M.D. [id number] MR MRCPon 12-07-2023 MR MRCP EXAMINATION: MR MRCP: 12/08/2023 HISTORY: ORDERING SYSTEM PROVIDED HISTORY: cholelithiasis, TECHNOLOGIST PROVIDED HISTORY: Illness/Other Reason for exam: cholelithiasis Encounter Type: Subsequent/Follow-up Additional signs and symptoms: F/U to u/s, ct, surgery 12/06 ORDERING SYSTEM PROVIDED DIAGNOSIS CODES: K81.0 Acute cholecystitis G89.18 Acute postoperative pain COMPARISON: Enhanced CT scan of the abdomen and pelvis: 12/06/2023. Right upper quadrant ultrasound: 10/13/2023. TECHNIQUE: Multiplanar, multisequence images through upper abdomen, without intravenous contrast, were obtained. Sagittal, coronal MIP (maximum intensity projection) for MRCP sequences were also obtained. CONTRAST: None. FINDINGS: Since the previous CT examination, patient has undergone cholecystectomy with some dependent atelectatic changes and minimal effusions at the lung bases. The heart size seems normal, which is visualized. The liver, spleen, pancreas, adrenal glands, kidneys appear normal for a noncontrast study. There is some haziness, edematous appearance to the subcutaneous soft tissues of anterior abdomen as well as the lateral abdomen, probably from recent surgery and sites utilized for instrumentation for the cholecystectomy. There is some haziness, increased density in the gallbladder fossa, without discrete air-fluid levels, probably some postsurgical changes from recent cholecystectomy. The abdominal aorta has normal caliber. There is no retroperitoneal adenopathy. The visualized bowel loops are of normal caliber. There is normal-appearing common bile duct, common hepatic duct, and the intrahepatic bile ducts, without segmental narrowing to suggest strictures. No definite filling defects are seen to suggest calculi or masses. There is normal tapering to the ampulla. The visualized pancreatic duct is of normal caliber as well. IMPRESSION: 1. Status post cholecystectomy with postsurgical changes as seen by some signal changes in the anterior abdominal wall fat as well as the lateral wall of the right abdomen, probably from recent surgery. There are some postsurgical changes, as seen by some increased density in the gallbladder fossa, may represent small component of hemorrhage or proteinaceous contents, but no convincing evidence of large seroma, hematoma, or biloma. 2. The bile ducts, pancreatic duct are normal in caliber, tapering normally to ampulla, without filling defects to suggest masses or stones. There are no segmental areas of narrowing to suggest strictures. KKV/ads Workstation ID: [id number] Dictated by: ADAM ADLER on FriDec 08, 2023 10:38:28 AM EDT Transcribed by: DESMOND GOLDSMITH on FriDec 08, 2023 11:40:07 AM EDT Finalized by: ADAM ADLER on FriDec 08, 2023 5:42:07 PM EDT Normal Comment on above: Order Comment: Injur y/Trauma or Illness?:Illness/Other f/u to surgery 12/06 How long have you had these symptoms (acute/chronic)?:Acute Reason for exam?:cholelithiasis Type of Exam?:Subsequent/Follow-up CT/US Additional signs and symptoms?:F/U to u/s, ct, surgery 12/06 TISSUE EXAMon 12-07-2023 TISSUE EXAM Surgical Pathology Report Case: [id number] Authorizing Provider: Ruddy Rice DO Collected: 12/07/2023 11:16 AM Ordering Location: Received: 12/08/2023 09:35 AM Periop Pathologist: dAri Harp MD Specimen: Gallbladder, GALLBLADDER AND CONTENTS Gallbladder, cholecystectomy: Acute on chronic cholecystitis, cholelithiasis and cholesterolosis. Cholecystitis Received in formalin labeled Javon Montoya and designated gallbladder is an intact gallbladder, 5.8 x 3.5 x 2.7 cm. The cystic duct is patent and dilated due to obstruction of multiple cerrato-yellow, spherical calculi in aggregate, 1.3 x 1.0 x 0.4 cm. The serosa is cerrato-purple, smooth and wrinkled. The lumen contains dark, viscous bile and multiple cerrato-yellow, spherical calculi in aggregate, 6.5 x 5.8 x 0.4 cm. The mucosa is cerrato-dark green, trabeculated with yellow flecks. The wall is unremarkable, up to 0.3 cm. No pericolic lymph node is grossly identified. 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 Normal Comment on above: Performed By: #### [id number] #### [facility] [address] [address] Shmuel Horner M.D. [id number] BASIC METABOLIC PANELon - Anion gap [Moles/Vol] 16 mmol/L Normal 10-20 [facility] Comment on above: Order Comment: [facility] has implemented the eGFR calculation approach that does not have a coefficient for race that conforms to the NKF-ASN Task Force Recommendations. Performed By: #### [id number] #### [facility] [address] [place] [address] Shmuel Horner M.D. [id number] Calcium [Mass/Vol] 9.6 mg/dL Normal 8.4-10.2 Comment on above: Order Comment: [facility] has implemented the eGFR calculation approach that does not have a coefficient for race that conforms to the NKF-ASN Task Force Recommendations. Performed By: #### [id number] #### [facility] [address] [place] [address] Shmuel Horner M.D. [id number] Chloride [Moles/Vol] 102 mmol/L Normal 98-108 [facility] Comment on above: Order Comment: [facility] has implemented the eGFR calculation approach that does not have a coefficient for race that conforms to the NKF-ASN Task Force Recommendations. Performed By: #### [id number] #### [facility] [address] [place] [address] Shmuel Horner M.D. [id number] Creatinine [Mass/Vol] 0.84 mg/dL Normal 0.40-1.10 [facility] Comment on above: Order Comment: [facility] has implemented the eGFR calculation approach that does not have a coefficient for race that conforms to the NKF-ASN Task Force Recommendations. Performed By: #### 4 [id number] #### [facility] [address] [place] [address] Shmuel Horner M.D. [id number] EGFR 98 mL/min/1.73 m2 Normal >=60 Comment on above: Order Comment: [facility] has implemented the eGFR calculation approach that does not have a coefficient for race that conforms to the NKF-ASN Task Force Recommendations. Result Comment: Uyen mated GFR was calculated using the 2020 CKD-EPI creatinine equation. Performed By: #### [id number] #### [facility] [address] [place] [address] Shmuel Horner M.D. [id number] Glucose [Mass/Vol] 108 mg/dL High 65-99 Comment on above: Order Comment: [facility] has implemented the eGFR calculation approach that does not have a coefficient for race that conforms to the NKF-ASN Task Force Recommendations. Performed By: #### 4 [id number] #### [facility] [address] [place] [address] Shmuel Horner M.D. [id number] HCO3 (Bld) [Moles/Vol] 26 mmol/L Normal 21-32 [facility] Comment on above: Order Comment: [facility] has implemented the eGFR calculation approach that does not have a coefficient for race that conforms to the NKF-ASN Task Force Recommendations. Performed By: #### [id number] #### [facility] [address] [place] [address] Shmuel Horner M.D. [id number] Potassium [Moles/Vol] 4.7 mmol/L Normal 3.5-5.1 [facility] Comment on above: Order Comment: [facility] has implemented the eGFR calculation approach that does not have a coefficient for race that conforms to the NKF-ASN Task Force Recommendations. Performed By: #### 4 [id number] #### [facility] [address] [place] [address] Shmuel Horner M.D. [id number] Sodium [Moles/Vol] 139 mmol/L Normal 135-145 Comment on above: Order Comment: [facility] has implemented the eGFR calculation approach that does not have a coefficient for race that conforms to the NKF-ASN Task Force Recommendations. Performed By: #### [id number] #### [facility] [address] [place] [address] Shmuel Horner M.D. [id number] Urea nitrogen [Mass/Vol] 16 mg/dL Normal 8-25 Comment on above: Order Comment: [facility] has implemented the eGFR calculation approach that does not have a coefficient for race that conforms to the NKF-ASN Task Force Recommendations. Performed By: #### [id number] #### [facility] [address] [place] [address] Shmuel Horner M.D. [id number] Urea nitrogen/Creatinine [Mass ratio] 19.0 mg/mg Normal 10.0-20.0 Comment on above: Order Comment: [facility] has implemented the eGFR calculation approach that does not have a coefficient for race that conforms to the NKF-ASN Task Force Recommendations. Performed By: #### [id number] #### [facility] [address] [place] [address] Shmuel Horner M.D. [id number] CBC WITH AUTO DIFFERENTIALon 12-06-2023 AUTO NRBC 0.0 % Normal Comment on above: Performed By: #### 4 [id number] #### [facility] [address] [place] [address] Shmuel Horner M.D. [id number] AUTO NRBC ABS COUNT 0.00 K/mcL Normal 0.00-0.00 Comment on above: Performed By: #### 4 [id number] #### [facility] [address] [place] [address] Shmuel Horner M.D. [id number] BASOPHILS ABSOLUTE COUNT 0.01 K/mcL Normal 0.00-0.30 Comment on above: Performed By: #### 4 [id number] #### [facility] [address] [place] [address] Shmuel Horner M.D. [id number] Basophils/100 WBC (Bld) 0.1 % Normal Comment on above: Performed By: #### 4 [id number] #### [facility] [address] [place] [address] Shmuel Horner M.D. [id number] Eosinophils (Bld) [#/Vol] 0.05 10*3/uL Normal 0.00-0.50 Comment on above: Performed By: #### 4 [id number] #### [facility] [address] [place] [address] Shmuel Horner M.D. [id number] Eosinophils/100 WBC (Bld) 0.4 % Normal Comment on above: Performed By: #### 4 [id number] #### [facility] [address] [place] [address] Shmuel Horner M.D. [id number] Erythrocyte distribution width (RBC) [Ratio] 11.8 % Normal 11.6-14.8 Comment on above: Performed By: #### 4 [id number] #### [facility] [address] [place] [address] Shmuel Horner M.D. [id number] Hematocrit (Bld) [Volume fraction] 44.2 % Normal 36.0-46.0 Comment on above: Performed By: #### 4 [id number] #### [facility] [address] [place] [address] Shmuel Horner M.D. [id number] Hemoglobin (Bld) [Mass/Vol] 15.2 g/dL Normal 12.0-16.0 Comment on above: Performed By: #### 4 [id number] #### [facility] [address] [place] [address] Shmuel Horner M.D. [id number] IG ABSOLUTE 0.04 K/mcL Normal 0.00-0.30 Comment on above: Performed By: #### 4 [id number] #### [facility] [address] [place] [address] Shmuel Horner M.D. [id number] IG PERCENT 0.30 % Normal Comment on above: Result Comment: The IG parameter is the percentage of metamyelocytes, myelocytes and promyelocytes. An immature granulocyte count (IG) of 1% or more suggests the possibility of infection, an IG count of 3% is very likely related to an infection. Performed By: #### 4 [id number] #### [facility] [address] [place] [address] Shmuel Horner M.D. [id number] Lymphocytes (Bld) [#/Vol] 0.86 10*3/uL Low 0.90-4.00 Comment on above: Performed By: #### 4 [id number] #### [facility] [address] [place] [address] Shmuel Horner M.D. [id number] Lymphocytes/100 WBC (Bld) 7.4 % Normal Comment on above: Performed By: #### 4 [id number] #### [facility] [address] [place] [address] Shmuel Horner M.D. [id number] MCH (RBC) [Entitic mass] 28.6 pg Normal 26.0-34.0 Comment on above: Performed By: #### 4 [id number] #### [facility] [address] [place] [address] Shmuel Horner M.D. [id number] MCV (RBC) [Entitic vol] 83.2 fL Normal 80.0-100.0 Comment on above: Performed By: #### 4 [id number] #### [facility] [address] [place] [address] Shmuel Horner M.D. [id number] MEAN CORPUSCULAR HEMOGLOBIN CONC 34.4 g/dL Normal 31.0-37.0 Comment on above: Performed By: #### 4 [id number] #### [facility] [address] [place] [address] Shmuel Horner M.D. [id number] Monocytes (Bld) [#/Vol] 0.67 10*3/uL Normal 0.30-0.90 Comment on above: Performed By: #### 4 [id number] #### [facility] [address] [place] [address] Shmuel Horner M.D. [id number] Monocytes/100 WBC (Bld) 5.8 % Normal Comment on above: Performed By: #### 4 [id number] #### [facility] [address] [place] [address] Shmuel Horner M.D. [id number] NEUTROPHILS ABSOLUTE COUNT 10.00 K/mcL High 1.70-7.00 Comment on above: Performed By: #### 4 [id number] #### [facility] [address] [place] [address] Shmuel Horner M.D. [id number] Neutrophils/100 WBC (Bld) 86.0 % Normal Comment on above: Performed By: #### 4 [id number] #### [facility] [address] [place] [address] Shmuel Horner M.D. [id number] Platelet mean volume (Bld) [Entitic vol] 9.0 fL Low 9.4-12.4 Comment on above: Performed By: #### 4 [id number] #### [facility] [address] [place] [address] Shmuel Horner M.D. [id number] Platelets (Bld) [#/Vol] 307 10*3/uL Normal 150-400 Comment on above: Performed By: #### 4 [id number] #### [facility] [address] [place] [address] Shmuel Horner M.D. [id number] RBC (Bld) [#/Vol] 5.31 10*6/uL High 4.00-5.20 Comment on above: Performed By: #### 4 [id number] #### [facility] [address] [place] [address] Shmuel Horner M.D. [id number] WBC (Bld) [#/Vol] 11.63 10*3/uL High 4.50-11.00 [facility] Comment on above: Performed By: #### 4 [id number] #### [facility] [address] [place] [address] [address] M[address] [id number] CT ABDOMEN PELVIS WITH IV CO NTRAST ONLYon 12-06-2023 CT ABDOMEN PELVIS WITH IV CONTRAST ONLY EXAM: CT ABDOMEN PELVIS WITH IV CONTRAST ONLY DATE: 12/06/2023 2:49 pm TECHNIQUE: Axial CT images were obtained through the abdomen and pelvis following intravenous contrast administration. Multiplanar reformatted images also created. IOPAMIDOL 370 MG IODINE/ML (76 %) INTRAVENOUS SOLUTION - 75 mL, Dose reduction techniques were achieved by using automated exposure control and/or adjustment of mA and/or kV according to patient size and/or use of iterative reconstruction technique. HISTORY: ORDERING SYSTEM PROVIDED HISTORY: Abdominal pain, acute, nonlocalized, TECHNOLOGIST PROVIDED HISTORY: Illness/Other Reason for exam: Abdominal pain, acute, nonlocalized Encounter Type: Initial Additional signs and symptoms: , ORDERING SYSTEM PROVIDED DIAGNOSIS CODES: COMPARISON: None FINDINGS: Lower chest: The lower lungs are clear. Liver: The liver is homogeneous with normal contours and normal size. Gallbladder: The gallbladder is unremarkable. There is no intra or extrahepatic biliary dilatation. Pancreas: The pancreas is homogeneous without evidence for mass lesion or inflammation. Spleen: The spleen is unremarkable without evidence for mass lesion. Adrenals: The adrenal glands are unremarkable Kidneys and bladder: The kidneys are unremarkable with no evidence for mass lesion, hydronephrosis or inflammation.There is no urinary tract calculus.The ureters demonstrate normal caliber.The urinary bladder is unremarkable. GI tract: Stomach is unremarkable.Visualize d small bowel is unremarkable without evidence for obstruction or active inflammation. The appendix is unremarkable. The visualized portion of the large bowel is unremarkable. Reproductive: There is a 21 mm collapsing corpus luteal cyst in the left ovary. There is a 36 x 29 mm fluid collection along the adnexa which may relate to a small amount of free fluid or an ovarian cyst. Lymph nodes: No retroperitoneal or abdominal lymphadenopathy. Vascular: The aorta demonstrates normal caliber without aneurysm or dissection.The branch vessels of the aorta are widely patent. Peritoneum: There is no free air. Abdominal wall and Skeletal: Unremarkable without acute abnormality. ___ IMPRESSION: 1. There is a 21 mm collapsing corpus luteal cyst in the left ovary. An adjacent fluid collection measuring 36 x 29 mm may relate to a follicular cyst or some localized free fluid from a ruptured ovarian cyst. 2. There is no acute intraabdominal inflammatory process or bowel obstruction. 3. There is no obstructive uropathy. Workstation ID: [id number] Dictated by: REX SOL on [facility] Dec 06, 2023 3:18:54 PM EDT Transcribed by: REX SOL on [facility] Dec 06, 2023 3:18:54 PM EDT Finalized by: REX SOL on Sat Dec 06, 2023 3:18:54 PM EDT Normal Comment on above: Order Comment: Injur y/Trauma or Illness?:Illness/Other How long have you had these symptoms (acute/chronic)?:Acute Reason for exam?:Abdominal pain, acute, nonlocalized Type of Exam?:Initial Additional signs and symptoms?:, ED Prov Noteon 12-06-2023 ED Prov Note ED PROVIDER NOTE [facility] EMERGENCY DEPARTMENT NAME: Javon Montoya AGE: 24 y.o. : 1999 VISIT DATE: 12/06/2023 CSN: [id number] PCP: Nichole Bartholomew MD Chief Complaint Patient presents with Abdominal Pain Patient is a 24-year-old female who presents to the emergency department with severe right upper quadrant abdominal pain which began earlier this morning. Patient had initial symptom onset back as early as September she was seen and imaged finding a gallstone in the common bile duct. Patient says that after that episode symptoms slowly improved she then had an abdominal ultrasound shows multiple stones with a resulting schedule for surgery for December 22 7 AM this morning patient developed a fever vomiting abnormally intense yellow urine. Past Medical History: Diagnosis Date Acne ADHD Anxiety Depression PCOS (polycystic ovarian syndrome) Past Surgical History: Procedure Laterality Date BREAST REDUCTION Bilateral WISDOM TOOTH EXTRACTION History reviewed. No pertinent family history. Social History Socioeconomic History Marital status: Single Tobacco Use Smoking status: Never Passive exposure: Never Smokeless tobacco: Never Vaping Use Vaping status: Never Used Substance and Sexual Activity Alcohol use: Never Drug use: Never No current outpatient medications on file prior to encounter. No Known Allergies Review of Systems Constitutional: Positive for chills and fever. Negative for fatigue. HENT: Negative for sore throat. Respiratory: Negative for cough and shortness of breath. Cardiovascular: Negative for chest pain. Gastrointestinal: Positive for abdominal pain, nausea and vomiting. Musculoskeletal: Negative for arthralgias, joint swelling, neck pain and neck stiffness. Skin: Negative for rash. Neurological: Negative for dizziness, light-headedness and headaches. Patient Vitals for the past 24 hrs: BP Temp Temp src Pulse Resp SpO2 Height Weight 12/06/23 1402 -- -- -- -- 17 -- -- -- 06/29/24 1233 135/87 97.7 degrees F (36.5 degrees C) Oral (!) 114 17 97 % 5' 6 99.8 kg (220 lb) Physical Exam Constitutional: General: She is not in acute distress. Appearance: She is well-developed. She is not ill-appearing, toxic-appearing or diaphoretic. HENT: Head: Normocephalic and atraumatic. Mouth/Throat: Mouth: Mucous membranes are moist. Pharynx: Oropharynx is clear. Eyes: General: No scleral icterus. Pupils: Pupils are equal, round, and reactive to light. Cardiovascular: Rate and Rhythm: Normal rate and regular rhythm. Heart sounds: Normal heart sounds. Pulmonary: Effort: Pulmonary effort is normal. Breath sounds: Normal breath sounds. Abdominal: General: Abdomen is flat. Bowel sounds are normal. There is no distension or abdominal bruit. There are no signs of injury. Palpations: Abdomen is soft. There is no shifting dullness, fluid wave, hepatomegaly, splenomegaly, mass or pulsatile mass. Tenderness: There is abdominal tenderness in the right upper quadrant. Hernia: No hernia is present. Skin: General: Skin is warm and dry. Capillary Refill: Capillary refill takes less than 2 seconds. Neurological: General: No focal deficit present. Mental Status: She is alert. Psychiatric: Mood and Affect: Mood normal. Behavior: Behavior normal. . Laboratory & Radiographic Imaging (if done): Results for orders placed or performed during the hospital encounter of 12/06/23 BMP Result Value Ref Range Sodium 139 135 - 145 mmol/L Potassium 4.7 3.5 - 5.1 mmol/L Chloride 102 98 - 108 mmol/L Bicarbonate 26 21 - 32 mmol/L Anion Gap 16 10 - 20 mmol/L Glucose 108 (H) 65 - 99 mg/dL BUN 16 8 - 25 mg/dL Creatinine 0.84 0.40 - 1.10 mg/dL eGFR 98 >=60 mL/min/1.73 m2 BUN/Creatinine Ratio 19.0 10.0 - 20.0 Calcium 9.6 8.4 - 10.2 mg/dL Hepatic Function Panel (LFT) Result Value Ref Range Total Protein 7.6 6.0 - 8.0 g/dL Albumin 4.5 3.2 - 5.2 g/dL Total Bilirubin 0.9 0.0 - 1.3 mg/dL Bilirubin, Direct 0.5 (H) 0.0 - 0.4 mg/dL Alkaline Phosphatase 151 (H) 40 - 140 U/L AST 234 (H) 0-35 U/L U/L ALT 145 (H) 0-35 U/L U/L Lipase Result Value Ref Range Lipase 30 15 - 65 U/L CBC Auto Differential Result Value Ref Range WBC 11.63 (H) 4.50 - 11.00 K/mcL RBC 5.31 (H) 4.00 - 5.20 M/mcL Hemoglobin 15.2 12.0 - 16.0 g/dL Hematocrit 44.2 36.0 - 46.0 % MCV 83.2 80.0 - 100.0 fL MCH 28.6 26.0 - 34.0 pg MCHC 34.4 31.0 - 37.0 g/dL Platelets 307 150 - 400 K/mcL RDW - CV 11.8 11.6 - 14.8 % MPV 9.0 (L) 9.4 - 12.4 fL Neutrophils 86.0 % Lymphocytes 7.4 % Monocytes 5.8 % Eosinophils 0.4 % Basophils 0.1 % IG Percent 0.30 % Neutrophils Abs 10.00 (H) 1.70 - 7.00 K/mcL Lymphocytes Abs 0.86 (L) 0.90 - 4.00 K/mcL Monocytes Abs 0.67 0.30 - 0.90 K/mcL Eosinophils Abs 0.05 0.00 - 0.50 K/mcL Basophils Abs 0.01 0.00 - 0.30 K/mcL IG Absolute 0.04 0.00 - 0.30 K/mcL Nucleated RBC 0 (more content not included)... Normal HEPATIC FUNCTION PANELon Albumin [Mass/Vol] 4.5 g/dL Normal 3.2-5.2 Comment on above: Performed By: #### 4 [id number] #### [facility] [address] [place] [id number] Shmuel Horner M.D. [id number] ALP [Catalytic activity/Vol] 151 U/L High 40-140 Comment on above: Performed By: #### 4 [id number] #### [facility] [address] [place] [address] Shmuel Horner M.D. [id number] ALT [Catalytic activity/Vol] 145 U/L High 0-35 U/L Comment on above: Performed By: #### 4 [id number] #### [facility] [address] [place] [address] Shmuel Horner M.D. [id number] AST [Catalytic activity/Vol] 234 U/L High 0-35 U/L Comment on above: Performed By: #### 4 [id number] #### [facility] [address] [place] [address] Shmuel Horner M.D. [id number] Bilirubin [Mass/Vol] 0.9 mg/dL Normal 0.0-1.3 [facility] Comment on above: Performed By: #### 4 [id number] #### [facility] [address] [place] [address] Shmuel Horner M.D. [id number] Bilirubin.indirect [Mass/Vol] 0.5 mg/dL High 0.0-0.4 Comment on above: Performed By: #### 4 [id number] #### [facility] [address] [place] [address] Shmuel Horner M.D. [id number] Protein [Mass/Vol] 7.6 g/dL Normal 6.0-8.0 Comment on above: Performed By: #### 4 [id number] #### [facility] [address] [place] [address] Shmuel Horner M.D. [id number] LIPASEon 12-06-2023 Lipase [Catalytic activity/Vol] 30 U/L Normal 15-65 Comment on above: Performed By: #### 4 6086 #### [facility] [address] [place] [address] Shmuel Horner M.D. [id number] US ABDOMEN RUQ/LIVER/GBon US ABDOMEN RUQ/LIVER/GB EXAM: US ABDOMEN RUQ/LIVER/GB HISTORY: Upper abdominal pain. COMPARISON: None. TECHNIQUE: Transabdominal sonography with Doppler. FINDINGS: The aorta is normal in caliber and appearance. The visualized pancreas was thought to be normal. Liver shows normal echotexture without mass or ductal dilation. It appeared to be normal in size. Within the gallbladder there is prominent echogenic foci with shadowing consistent with extensive cholelithiasis. I am not particularly seeing gallbladder wall thickening or ductal dilation. The CBD was only 2 mm. The right kidney was 10.5 x 4.9 x 5.3 cm. There is normal cortical tissue. It was thought to be satisfactory. IMPRESSION: 1. Extensive cholelithiasis is seen. Major echogenic foci and shadowing is noted. The sonographic Jara sign was absent and no secondary signs of cholecystitis were particularly identified. 2. Unremarkable pancreas, liver, right kidney and retroperitoneum. Normal [facility] AMYLASEon 10-13-2023 Amylase [Catalytic activity/Vol] 62 U/L Normal 30-110 [facility] Comment on above: Performed By: #### L IPA2, ACBC, CMPF, AMYL #### [place] [address] CBCon 10-13-2023 ABSOLUTE BAS 0.0 10*3/uL Normal 0.0-0.2 [facility] Comment on above: Performed By: #### L IPA2, ACBC, CMPF, AMYL #### [place] [address] ABSOLUTE EOS 0.0 10*3/uL Normal 0.0-0.7 [facility] Comment on above: Performed By: #### L IPA2, ACBC, CMPF, AMYL #### Testing performed at [place] [id number] ABSOLUTE NEUTROPHIL COUNT 6.8 10*3/uL High 1.4-6.5 [facility] Comment on above: Performed By: #### L IPA2, ACBC, CMPF, AMYL #### Testing performed at [place] [id number] Basophils/100 WBC (Bld) 0.1 % Normal 0.0-2.0 [facility] Comment on above: Performed By: #### L IPA2, ACBC, CMPF, AMYL #### Testing performed at [place] [id number] DTYPE AUTO DIFF Normal [facility] Comment on above: Performed By: #### L IPA2, ACBC, CMPF, AMYL #### Testing performed at [address] [address] Eosinophils/100 WBC (Bld) 0.1 % Normal 0.0-11.0 [facility] Comment on above: Performed By: #### L IPA2, ACBC, CMPF, AMYL #### Testing performed at [address] [address] Lymphocytes (Bld) [#/Vol] 1.1 10*3/uL Low 1.2-3.4 [facility] Comment on above: Performed By: #### L IPA2, ACBC, CMPF, AMYL #### Testing performed at [address] [address] Lymphocytes/100 WBC (Bld) 13.0 % Low 20.0-55.0 [facility] Comment on above: Performed By: #### L IPA2, ACBC, CMPF, AMYL #### Testing performed at [address] [address] Monocytes (Bld) [#/Vol] 0.5 10*3/uL Normal 0.0-0.7 [facility] Comment on above: Performed By: #### L IPA2, ACBC, CMPF, AMYL #### Testing performed at [address] [address] Monocytes/100 WBC (Bld) 5.8 % Normal 0.0-10.0 [facility] Comment on above: Performed By: #### L IPA2, ACBC, CMPF, AMYL #### Testing performed at [address] [address] Neutrophils/100 WBC (Bld) 81.0 % High 37.0-75.0 [facility] Comment on above: Performed By: #### L IPA2, ACBC, CMPF, AMYL #### Testing performed at [address] [address] Erythrocyte distribution width (RBC) [Ratio] 13.0 % Normal 11.5-14.5 [facility] Comment on above: Performed By: #### L IPA2, ACBC, CMPF, AMYL #### Testing performed at [address] [address] Hematocrit (Bld) [Volume fraction] 41.3 % Normal 36.0-48.0 [facility] Comment on above: Performed By: #### L IPA2, ACBC, CMPF, AMYL #### Testing performed at [address] [address] Hemoglobin (Bld) [Mass/Vol] 14.4 g/dL Normal 12.0-16.0 [facility] Comment on above: Performed By: #### L IPA2, ACBC, CMPF, AMYL #### Testing performed at [address] [address] MCH (RBC) [Entitic mass] 29.3 pg Normal 26.0-35.0 [facility] Comment on above: Performed By: #### L IPA2, ACBC, CMPF, AMYL #### Testing performed at [address] [address] MCHC (RBC) [Mass/Vol] 34.8 g/dL Normal 27.0-37.0 [facility] Comment on above: Performed By: #### L IPA2, ACBC, CMPF, AMYL #### Testing performed at [address] [address] MCV (RBC) [Entitic vol] 84.1 fL Normal 80.0-100.0 [facility] Comment on above: Performed By: #### L IPA2, ACBC, CMPF, AMYL #### Testing performed at [address] [address] Platelet mean volume (Bld) [Entitic vol] 7.2 fL Low 7.4-11.0 [facility] Comment on above: Performed By: #### L IPA2, ACBC, CMPF, AMYL #### Testing performed at [address] [address] Platelets (Bld) [#/Vol] 296 10*3/uL Normal 130-400 [facility] Comment on above: Performed By: #### L IPA2, ACBC, CMPF, AMYL #### Testing performed at [address] [address] RBC (Bld) [#/Vol] 4.91 10*6/uL Normal 4.0-5.4 [facility] Comment on above: Performed By: #### L IPA2, ACBC, CMPF, AMYL #### Testing performed at [address] [address] WBC (Bld) [#/Vol] 8.4 10*3/uL Normal 3.6-11.0 [facility] Comment on above: Performed By: #### L IPA2, ACBC, CMPF, AMYL #### Testing performed at [address] [address] CMP FASTINGon 10-13-2023 A:G RATIO 1.5 RATIO Normal [facility] Comment on above: Performed By: #### L IPA2, ACBC, CMPF, AMYL #### Testing performed at [address] [address] ALBUMIN 4.7 G/dl Normal 3.5-5.0 [facility] Comment on above: Performed By: #### L IPA2, ACBC, CMPF, AMYL #### Testing performed at [address] [address] ALP [Catalytic activity/Vol] 92 U/L Normal 38-126 [facility] Comment on above: Performed By: #### L IPA2, ACBC, CMPF, AMYL #### Testing performed at [address] [address] ALT [Catalytic activity/Vol] 24 U/L Normal <35 [facility] Comment on above: Performed By: #### L IPA2, ACBC, CMPF, AMYL #### Testing performed at [address] [address] AST [Catalytic activity/Vol] 24 U/L Normal 14-36 [facility] Comment on above: Performed By: #### L IPA2, ACBC, CMPF, AMYL #### Testing performed at [address] [address] Bilirubin [Mass/Vol] 0.6 mg/dL Normal 0.2-1.3 [facility] Comment on above: Performed By: #### L IPA2, ACBC, CMPF, AMYL #### Testing performed at [address] [address] Calcium [Mass/Vol] 9.2 mg/dL Normal 8.4-10.2 [facility] Comment on above: Performed By: #### L IPA2, ACBC, CMPF, AMYL #### Testing performed at [address] [address] Chloride [Moles/Vol] 104 mmol/L Normal 98-107 [facility] Comment on above: Result Comment: Wil lopez note: Triglyceride levels of 600mg/dL or higher may positively bias chloride results by approximately 2.1 mmol Performed By: #### L IPA2, ACBC, CMPF, AMYL #### Testing performed at [address] [address] CO2 [Moles/Vol] 27 mmol/L Normal 22-30 [facility] Comment on above: Performed By: #### L IPA2, ACBC, CMPF, AMYL #### Testing performed at [address] [address] Creatinine [Mass/Vol] 1.00 mg/dL Normal 0.70-1.20 [facility] Comment on above: Performed By: #### L IPA2, ACBC, CMPF, AMYL #### Testing performed at [address] [address] EST. GFR, 88 ml/min/1.73sq.m [facility] Comment on above: Performed By: #### L IPA2, ACBC, CMPF, AMYL #### Testing performed at [address] [address] EST. GFR,Non 72 ml/min/1.73sq.m [facility] Comment on above: Performed By: #### L IPA2, ACBC, CMPF, AMYL #### Testing performed at [address] [address] GFR Information Average GFR for 20-2 9 years old = 116. Normal [facility] Comment on above: Result Comment: Product Delivery Specialist sarabjit Kidney disease, GFR = <60. Kidney failure, GFR = <15. The GFR estimate is not adjusted for extreme body surface area or acute process, nor has it been validated for women or ethnic groups other than and . Performed By: #### L IPA2, ACBC, CMPF, AMYL #### Testing performed at [address] [address] Glucose [Mass/Vol] 91 mg/dL Normal 70-100 [facility] Comment on above: Result Comment: NORMAL <100 mg/dL PREDIABETES 101-126 mg/dL DIABETES 126 mg/dL or higher Performed By: #### L IPA2, ACBC, CMPF, AMYL #### Testing performed at [address] [address] Potassium [Moles/Vol] 4.5 mmol/L Normal 3.5-5.1 [facility] Comment on above: Performed By: #### L IPA2, ACBC, CMPF, AMYL #### Testing performed at [address] [address] Protein [Mass/Vol] 7.8 g/dL Normal 6.3-8.2 [facility] Comment on above: Performed By: #### L IPA2, ACBC, CMPF, AMYL #### Testing performed at [address] [address] Sodium [Moles/Vol] 139 mmol/L Normal 137-145 [facility] Comment on above: Performed By: #### L IPA2, ACBC, CMPF, AMYL #### Testing performed at [address] [address] Urea nitrogen [Mass/Vol] 19 mg/dL Normal 7-20 [facility] Comment on above: Performed By: #### L IPA2, ACBC, CMPF, AMYL #### Testing performed at [address] [address] LIPASE,SERUMon 10-13-2023 LIPASE,SERUM 88 U/L Normal 23-300 [facility] Comment on above: Performed By: #### L IPA2, ACBC, CMPF, AMYL #### Testing performed at [address] [address] URINE MACROSCOPICon 10-13-19 24 Bilirubin Ql (U) Negative Normal NEGATIVE [facility] Comment on above: Performed By: #### U MAC, UMIC #### Testing performed at [address] [place] [address] Clarity (U) CLEAR Normal CLEAR [facility] Comment on above: Performed By: #### U MAC, UMIC #### Testing performed at [address] [place] [address] Color (U) YELLOW Normal YELLOW [facility] Comment on above: Performed By: #### U MAC, UMIC #### Testing performed at [address] [address] Glucose Ql (U) Negative Normal NEGATIVE [facility] Comment on above: Performed By: #### U MAC, UMIC #### Testing performed at [address] [place] [address] pH (U) 6.0 [pH] Normal 5.0-7.0 [facility] Comment on above: Performed By: #### U MAC, UMIC #### Testing performed at [address] [place] [address] URINE HEMOGLOBIN Negative Normal NEGATIVE [facility] Comment on above: Performed By: #### U MAC, UMIC #### Testing performed at [address] [place] [address] URINE KETONE Negative Normal NEGATIVE [facility] Comment on above: Performed By: #### U MAC, UMIC #### Testing performed at [address] [place] [address] URINE LEUKOTEST MODERATE Abnormal NEGATIVE [facility] Comment on above: Performed By: #### U MAC, UMIC #### Testing performed at [address] [address] URINE NITRATES Negative Normal NEGATIVE [facility] Comment on above: Performed By: #### U MAC, UMIC #### Testing performed at [address] [place] [address] URINE SPEC GRAVITY 1.025 Normal 1.010-1.025 [facility] Comment on above: Performed By: #### U MAC, UMIC #### Testing performed at [address] [place] [address] URINE TOTAL PROTEIN Negative Normal NEGATIVE [facility] Comment on above: Performed By: #### U MAC, UMIC #### Testing performed at [address] [address] Urobilinogen Qn (U) 1.0 {Chantel'U}/dL Normal 0.2-1.0 [facility] Comment on above: Performed By: #### U MAC, UMIC #### Testing performed at [address] [address] URINE MICROSCOPICon 10-13-19 24 BACTERIA 1+ Abnormal NEGATIVE [facility] Comment on above: Performed By: #### U MAC, UMIC #### Testing performed at [address] [address] CASTS NONE Normal NONE [facility] Comment on above: Performed By: #### U MAC, UMIC #### Testing performed at [address] [address] CRYSTAL NONE Normal NONE [facility] Comment on above: Performed By: #### U MAC, UMIC #### Testing performed at [address] [address] Epithelial cells LM Ql (Urine sed) 20 TO 30 Normal [facility] Comment on above: Performed By: #### U MAC, UMIC #### Testing performed at [address] [address] Mucus Ql (Urine sed) Negative Normal NEGATIVE [facility] Comment on above: Performed By: #### U MAC, UMIC #### Testing performed at [address] [place] [address] URINE COMMENT POSSIBLY CONTAMINATE D SPECIMEN, CULTURE MUST BE ORDERED SEPARATELY IF DEEMED NECESSARY. Normal [facility] Comment on above: Performed By: #### U MAC, UMIC #### Testing performed at [address] [address] URINE RBC'S Negative Normal NEGATIVE [facility] Comment on above: Performed By: #### U MAC, UMIC #### Testing performed at [address] [address] URINE WBC'S 20 TO 30 Normal NEGATIVE [facility] Comment on above: Performed By: #### U MAC, UMIC #### Testing performed at [facility] [address] [place] [address] CHLAMYDIA TRACHOMATIS BY PCR (VAGINITIS PANEL)on 01-23-2023 Chlamydia trachomatis Amplified Probe Not detected Normal Not Detected [facility] Comment on above: Order Comment: This test was performed using Shipping Room Supervisor Mediated Amplification for the detection of Chlamydia trachomatis and/or Neisseria gonorrhoeae nucleic acid. This assay is not intended for the evaluation of suspected sexual abuse or other medico-legal indications. Result Comment: A ne gative test result for Chlamydia trachomatis does not preclude the possibility of infection. Results should be considered in conjunction with other clinical and laboratory findings. Performed By: #### C HLAMYDIA TRACHOMATIS BY PCR(VAGINITIS PANEL), NEISSERIA GONORRHOEAE BY PCR(VAGINITIS PANEL), TRICHOMONAS VAGINOSIS(VAGINITIS PANEL) #### [facility] (DEFAULT) [address] [address] HEPATITIS B SURFACE ANTIGENo n 01-23-2023 Hepatitis B Surface Ag Negative Normal Negative [facility] Comment on above: Performed By: #### H BSAG #### [facility] (DEFAULT) [address] [address] HEPATITIS C ANTIBODYon 01-23 Hepatitis C Antibody Negative Normal Negative [facility] Comment on above: Performed By: #### H CAB #### [facility] (DEFAULT) [address] [address] HIV 1 AND 2 ANTIBODIESon HIV-1/HIV-2 Ab With p24 Antigen Non-Reactive Normal Non Reactive [facility] Comment on above: Performed By: #### H IV #### [facility] (DEFAULT) [address] [address] NEISSERIA GONORRHOEAE BY PCR (VAGINITIS PANEL)on 01-23-2023 Neisseria gonorrhea Amplified Probe Not detected Normal Not Detected [facility] Comment on above: Order Comment: This test was performed using Shipping Room Supervisor Mediated Amplification for the detection of Chlamydia trachomatis and/or Neisseria gonorrhoeae nucleic acid. This assay is not intended for the evaluation of suspected sexual abuse or other medico-legal indications. Result Comment: A ne gative test result for Neisseria gonorrhoeae does not preclude the possibility of infection. Results should be considered in conjunction with other clinical and laboratory findings. Performed By: #### C HLAMYDIA TRACHOMATIS BY PCR(VAGINITIS PANEL), NEISSERIA GONORRHOEAE BY PCR(VAGINITIS PANEL), TRICHOMONAS VAGINOSIS(VAGINITIS PANEL) #### [facility] (DEFAULT) [address] [place] [address] SYPHILIS AB W/REFLEX RPRon 0 01-23-2023 Syphilis IgG/IGM Total Non-Reactive Normal Non Reactiv e [facility] Comment on above: Performed By: #### S YPHT #### [facility] (DEFAULT) [address] [place] [address] TRICHOMONAS VAGINOSIS(VAGINI TIS PANEL)on 01-23-2023 Trichomonas vaginalis by TMA Not detected Normal Not Detected [facility] Comment on above: Order Comment: This test was performed using Shipping Room Supervisor Mediated Amplification for the detection of ribosomal RNA from microorganisms associated with vulvovaginal trichomoniasis. Performed By: #### C HLAMYDIA TRACHOMATIS BY PCR(VAGINITIS PANEL), NEISSERIA GONORRHOEAE BY PCR(VAGINITIS PANEL), TRICHOMONAS VAGINOSIS(VAGINITIS PANEL) #### [facility] (DEFAULT) [address] [address] CHLAMYDIA TRACHOMATIS BY PCR (VAGINITIS PANEL)Ordered By: Benita Ruiz on 06-25-2022 C. trachomatis DNA ANUJ+probe Ql (Unsp spec) Detected Abnormal Not Detected [facility] Interpretation and review of laboratory results Abnormal [facility] HEPATITIS B SURFACE ANTIGENo n 06-25-2022 HBV surface Ag Ql (S) Negative Negative [facility] Interpretation and review of laboratory results Normal [facility] HEPATITIS C ANTIBODYon 06-25 HCV Ab Ql (S) Negative Negative [facility] HIV 1 AND 2 ANTIBODIESOrdere d By: Salome Rm on 06-25-2022 HIV 1+2 Ab+HIV1 p24 Ag IA Ql Non-Reactive Non Reactive [facility] NEISSERIA GONORRHOEAE BY PCR (VAGINITIS PANEL)on 06-25-2022 Interpretation and review of laboratory results Normal [facility] N. gonorrhoeae DNA ANUJ+probe Ql (Unsp spec) Not detected Not Detected [facility] Comment on above: A negative test resu lt for Neisseria gonorrhoeae does not preclude the possibility of infection. Results should be considered in conjunction with other clinical and laboratory findings. No Panel InformationOrdered By: Benita Ruiz on 06-25-2022 This test was performed using Shipping Room Supervisor Mediated Amplification for the detection of Chlamydia trachomatis and/or Neisseria gonorrhoeae nucleic acid. This assay is not intended for the evaluation of suspected sexual abuse or other medico-legal indications. [facility] No Panel InformationOrdered By: Salome Rm on 06-25-2022 Interpretation and review of laboratory results Normal [facility] T. pallidum Ab Ql (S)on 06-09 T. pallidum IgG Ql (S) Non-Reactive Non Reactiv e [facility] TRICHOMONAS VAGINOSIS(VAGINI TIS PANEL)Ordered By: Sarah Wallace on 06-25-2022 Interpretation and review of laboratory results Normal [facility] Trichomonas vaginalis by TMA Not detected Not Detected [facility] This test was performed using Shipping Room Supervisor Mediated Amplification for the detection of ribosomal RNA from microorganisms associated with vulvovaginal trichomoniasis. [facility] EAR CERUMEN REMOVALon 2021 Nichole Bartholomew MD 05/07/2022 12:05 PM EAR CERUMEN REMOVAL Date/Time: 05/07/2022 10:00 AM Performed by: Nichole Bartholomew MD Authorized by: Nichole Bartholomew MD Procedure: Visualization: otoscopy Impaction noted: yes Location details: Right ear Local anesthetic: None Procedure type: irrigation Patient tolerance: Tolerated well, no immediate complications [facility] Rad[facility] observation (narrative) [facility] BASIC METABOLIC PANELon Anion gap [Moles/Vol] 6 mmol/L Low [facility] Calcium [Mass/Vol] 9.3 mg/dL [facility] Chloride [Moles/Vol] 103 mmol/L [facility] Comment on above: Please note: Triglyc eride levels of 600mg/dL or higher may positively bias chloride results by approximately 2.1 mmol CO2 [Moles/Vol] 28 mmol/L [facility] Creatinine [Mass/Vol] 1.00 mg/dL [facility] GFR COMMENT Average GFR for 20-2 9 years old = 116. [facility] Comment on above: Chronic Kidney disea se, GFR = <60. Kidney failure, GFR = <15. The GFR estimate is not adjusted for extreme body surface area or acute process, nor has it been validated for women or ethnic groups other than and . Testing performed at [place], [place] [address] GFR/1.73 sq M.predicted among blacks MDRD (S/P/Bld) [Vol rate/Area] 88 mL/min/{1.73_m2} ml/min/1.73sq .m [facility] GFR/1.73 sq M.predicted among non-blacks MDRD (S/P/Bld) [Vol rate/Area] 73 mL/min/{1.73_m2} ml/min/1.73sq .m [facility] Glucose post fast [Mass/Vol] 96 mg/dL [facility] Comment on above: NORMAL <100 mg/dL PREDIABETES 101-126 mg/dL DIABETES 126 mg/dL or higher Interpretation and review of laboratory results Abnormal [facility] Potassium [Moles/Vol] 4.3 mmol/L [facility] Sodium [Moles/Vol] 137 mmol/L [facility] Urea nitrogen [Mass/Vol] 13 mg/dL [facility] [place] [facility] CBC, EDIF, PLATELETon 2021 ABSOLUTE BASOPHIL COUNT 0.0 10*3/uL 0.0 - 0.2 10*3/uL [facility] Comment on above: Testing performed at [place], [place] [address] Basophils/100 WBC (Bld) 0.3 % 0.0 - 2.0 % [facility] Differential cell count method Nom (Bld) AUTO DIFF % [facility] Eosinophils (Bld) [#/Vol] 0.20 10*3/uL 0.0 - 0.7 10*3/uL [facility] Eosinophils/100 WBC (Bld) 1.8 % 0.0 - 11.0 % [facility] Erythrocyte distribution width (RBC) [Ratio] 12.4 % 11.5 - 14.5 % [facility] Hematocrit (Bld) [Volume fraction] 40.6 % 36.0 - 48.0 % [facility] Hemoglobin (Bld) [Mass/Vol] 14.2 g/dL [facility] Interpretation and review of laboratory results Abnormal [facility] Lymphocytes (Bld) [#/Vol] 2.00 10*3/uL 1.2 - 3.4 10*3/uL [facility] Lymphocytes/100 WBC (Bld) 18.6 % Low 20.0 - 55.0 % [facility] MCH (RBC) [Entitic mass] 28.5 pg 26.0 - 35.0 PG [facility] MCHC (RBC) [Mass/Vol] 35.0 g/dL [facility] MCV (RBC) [Entitic vol] 81.5 fL [facility] Monocytes (Bld) [#/Vol] 0.5 10*3/uL 0.0 - 0.7 10*3/uL [facility] Monocytes/100 WBC (Bld) 5.0 % 0.0 - 10.0 % [facility] Neutrophils (Bld) [#/Vol] 7.9 10*3/uL High 1.4 - 6.5 10*3/uL [facility] Neutrophils/100 WBC (Bld) 74.3 % 37.0 - 75.0 % [facility] Platelet mean volume (Bld) [Entitic vol] 7.4 fL [facility] Platelets (Bld) [#/Vol] 322 10*3/uL 130.0 - 400.0 10*3/uL [facility] RBC (Bld) [#/Vol] 4.98 10*6/uL 4.0 - 5.4 10*6/uL [facility] WBC (Bld) [#/Vol] 10.6 10*3/uL 3.6 - 11.0 10*3/uL [facility] TSH W/FT4 REFLEXon 2 TSH Qn 1.300 m[IU]/L [facility] Comment on above: Testing performed at [address] VITAMIN D (25-HYDROXY,TOTAL) on 02-07-2022 25-hydroxyvitamin D [Mass/Vol] 35.3 NG/ML [facility] Comment on above: DEFICIENT <20 NG/ML INSUFFICIENT 20-<30 NG/ML SUFFICIENT 30-100 NG/ML POTENTIAL TOXICITY >100 NG/ML Testing performed at [address] Surgical Pathology Final Rep carlo 03-06-2021 Pathology study JAVON MONTOYA [id number] YRS F [id number] RM/BD ORDERING PHYSICIAN: KEEGAN BALDERAS 3 RESULT TRANSMITTED: 03/08/21 0751 S U R G I C A L P A T H O L O G Y R E P O R T CLINICAL INFORMATION: PREOP DIAGNOSIS: Not provided. POSTOP DIAGNOSIS: Not provided. PROCEDURE: Breast reduction. TISSUE REMOVED: (A) Right breast tissue. (B) Left breast tissue. GROSS DESCRIPTION: (A) Received in formalin, labeled with the patient's identification and right breast tissue is a 642 g, 18 x 15 x 7 cm aggregate of glistening, yellow fibroadipose tissue and grossly unremarkable cerrato-pink skin. The parenchyma has an 80:20 fat to stroma ratio. No nodules or calcifications are identified. The specimen is representatively submitted as follows: (A1) fibrous tissue; (A2) skin. (RS/2C/MS/FP) Collection date and time: 03/06/2021, time not provided. Fixation start date and time: 03/06/2021, time not provided. Fixation end date and time: 03/07/2021, 14:00 hours. Total fixation time: Unknown. (B) Received in formalin, labeled with the patient's identification and left breast tissue is a 545 g, 18 x 14 x 5.5 cm aggregate of glistening, yellow fibroadipose tissue and grossly unremarkable cerrato wrinkled skin. The parenchyma has an 80:20 fat to stroma ratio. No masses or calcifications are identified. The specimen is representatively submitted as follows: (B1) fibrous tissue; (B2) skin. (RS/2C/MS/FP) Collection date and time: 03/06/2021, time not provided. Fixation start date and time: 03/06/2021, time not provided. Fixation end date and time: 03/07/2021, 14:00 hours. Total fixation time: Unknown. Gross examination was performed at [facility]. ZW :JN 03/07/21 By: JORDY HU M.D. (Electronic Signature) MICROSCOPIC: The technical component was performed at [facility], [address] [place] [address]. Microscopic examination was performed. Case resulted at [facility]. DIAGNOSIS: A. Right breast tissue: Benign breast tissue with fibrosis and benign skin. B. Left breast tissue: Benign breast tissue with fibrosis and benign skin. JTB:JTB:JTB03/08/21 END OF REPORT END OF REPORT Normal [facility] Cytology Cervical or vaginal smear or scraping studyon 03-02-2021 [facility] SARS CoV 2 Qualitative PCRon 04-25-2020 Methodology CDC Kit Normal [facility] SARS CoV 2 Qualitative PCR Normal NODT [facility] Comment on above: Result Comment: Not Detected SARS CoV 2 RNA was NOT detected. Negative results do not preclude COVID 19 disease and should not be used as the sole basis for patient management decisions. Negative results must be combined with clinical observations, patient history, and epidemiological information. This test was developed and its performance characteristics determined by [facility] laboratory. This test has not been FDA cleared or approved. This test has been authorized by FDA under an Emergency Use Authorization (EUA). This test has been validated in accordance with the FDA's Guidance Document Policy for Diagnostics Testing in Laboratories Certified to Perform High Complexity Testing under CLIA prior to Emergency Use Authorization for Coronavirus Disease 2019 during the Public Health Emergency issued on August 07, 2019. FDA independent review of this validation is pending. This test is only authorized for the duration of time the declaration that circumstances exist justifying the authorization of the emergency use of in vitro diagnostic tests for detection of SARS CoV 2 virus and/or diagnosis of COVID 19 infection under section 564(b)(1) of the Act, 21 U.S.C. 360bbb 3(b)(1), unless the authorization is terminated or revoked sooner. Specimen Description Nasopharynx Normal Nicole [facility] GENERAL PROCEDUREon 11-08-19 20 Eric Grubbs MD - 11/08/2019 11:00 AM EDT Consent obtained. Pt had lesion present on the left inner upper arm. . Area prepped in a sterile fashion with alcohol. 0.1cc 1 % lidocaine with epi (LOT [id number], EXP 08 December 2019). Skin tag was excised x 1. Base was treated with silver nitrate. Patient tolerated the procedure well. No complications noted. Post procedure instructions were given. [facility] Radiologyon 07-01-2017 Radiology Type: OutpatientDictated by: Signed by: Transcribed by: Transcribed Date/Time: 06/06/2017 12:21Dictation Date/Time: 06/05/2017 16:37Report: DATE OF SERVICE: 04/05/2017 DIAGNOSTIC STUDIES/INTERPRETATION : Four views of the left knee were ordered and interpreted in the presence of the patient by me today. These demonstrate no evidence of acute osseous abnormality or fracture. Mineralization is adequate. Alignment is within normal limits. Joint spaces are well preserved. The knee is skeletally mature. IMPRESSION: Radiographs of the left knee which were essentially normal. Normal [facility] Vital Signs Date Time Vital Sign Value Performing Clinician Facility 06-28-2024 10:57-0500 Body mass index (BMI) [Ratio] 39.25 kg/m2 Cher CROWELL Work Phone: [facility] 06-28-2024 10:57-0500 Body weight 110.31 kg Cher CROWELL Work Phone: [facility] 06-28-2024 10:57-0500 Diastolic blood pressure 74 mm[Hg] Cher CROWELL Work Phone: [facility] 06-28-2024 10:57-0500 Systolic blood pressure 112 mm[Hg] Cher CROWELL Work Phone: [facility] 05-31-2024 09:35-0500 Body mass index (BMI) [Ratio] 38.9 kg/m2 Kevon Felipe DO Work Phone: [facility] 05-31-2024 09:35-0500 Body weight 109.32 kg Kevon Felipe DO Work Phone: [facility] 05-31-2024 09:35-0500 Diastolic blood pressure 72 mm[Hg] Kevon Felipe DO Work Phone: [facility] 05-31-2024 09:35-0500 Systolic blood pressure 122 mm[Hg] Kevon Felipe DO Work Phone: [facility] 05-03-2024 11:53-0500 Body height 167.6 cm Kevon Felipe DO Work Phone: [facility] 05-03-2024 11:53-0500 Body mass index (BMI) [Ratio] 38.9 kg/m2 Kevon Felipe DO Work Phone: [facility] 05-03-2024 11:53-0500 Body weight 109.32 kg Kevon Felipe DO Work Phone: [facility] 05-03-2024 11:53-0500 Diastolic blood pressure 72 mm[Hg] Kevon Felipe DO Work Phone: [facility] 05-03-2024 11:53-0500 Systolic blood pressure 118 mm[Hg] Kevon Felipe DO Work Phone: [facility] 04-30-2024 08:40-0500 Diastolic blood pressure 84 mm[Hg] Ashly Infante MD Work Phone: [facility] 04-30-2024 08:40-0500 Heart rate 93 /min Ashly Infante MD Work Phone: [facility] 04-30-2024 08:40-0500 Respiratory rate 16 /min Ashly Infante MD Work Phone: [facility] 04-30-2024 08:40-0500 SaO2% (BldA) [Mass fraction] 100 % Ashly Infante MD Work Phone: [facility] 04-30-2024 08:40-0500 Systolic blood pressure 123 mm[Hg] Ashly Infante MD Work Phone: [facility] 04-30-2024 08:09-0500 Body temperature 98.4 [degF] Ashly Infante MD Work Phone: [facility] 04-30-2024 07:00-0500 Body height 167.6 cm Ashly Infante MD Work Phone: [facility] 04-30-2024 07:00-0500 Body mass index (BMI) [Ratio] 38.41 kg/m2 Ashly Infante MD Work Phone: [facility] 04-30-2024 07:00-0500 Body weight 107.96 kg Ashly Infante MD Work Phone: [facility] 04-20-2024 14:34-0500 Body height 167.6 cm Ashly Infante MD Work Phone: [facility] 04-20-2024 14:34-0500 Body mass index (BMI) [Ratio] 38.46 kg/m2 Ashly Infante MD Work Phone: [facility] 04-20-2024 14:34-0500 Body weight 108.09 kg Ashly Infante MD Work Phone: [facility] 04-20-2024 14:34-0500 Diastolic blood pressure 54 mm[Hg] Ashly Infante MD Work Phone: [facility] 04-20-2024 14:34-0500 Systolic blood pressure 120 mm[Hg] Ashly Infante MD Work Phone: [facility] 03-30-2024 08:35-0400 Body weight 104.69 kg Kevon Felipe DO Work Phone: [facility] 03-30-2024 08:35-0400 Diastolic blood pressure 74 mm[Hg] Kevon Felipe DO Work Phone: [facility] 03-30-2024 08:35-0400 Systolic blood pressure 116 mm[Hg] Kevon aWng DO Work Phone: [facility] 03-12-2024 07:57-0400 Body height 167.6 cm Nichole Bartholomew MD Work Phone: [facility] 03-12-2024 07:57-0400 Body mass index (BMI) [Ratio] 36.25 kg/m2 Nichole Bartholomew MD Work Phone: [facility] 03-12-2024 07:57-0400 Body temperature 97.7 [degF] Nichole Bartholomew MD Work Phone: [facility] 03-12-2024 07:57-0400 Body weight 101.88 kg Nichole Bartholomew MD Work Phone: [facility] 03-12-2024 07:57-0400 Diastolic blood pressure 78 mm[Hg] Nichole Bartholomew MD Work Phone: [facility] 03-12-2024 07:57-0400 Heart rate 78 /min Nichole Bartholomew MD Work Phone: [facility] 03-12-2024 07:57-0400 Respiratory rate 12 /min Nichole Bartholomew MD Work Phone: [facility] 03-12-2024 07:57-0400 SaO2% (BldA) [Mass fraction] 97 % Nichole Bartholomew MD Work Phone: [facility] 03-12-2024 07:57-0400 Systolic blood pressure 118 mm[Hg] Nichole Bartholomew MD Work Phone: [facility] 11-13-2023 13:23-0400 Body height 167.6 cm Christel Coker DO Work Phone: [facility] 11-13-2023 13:23-0400 Body mass index (BMI) [Ratio] 35.72 kg/m2 Christel Coker DO Work Phone: [facility] 11-13-2023 13:23-0400 Body weight 100.38 kg Christel Coker DO Work Phone: [facility] 10-01-2023 14:21-0400 Body temperature 98.4 [degF] Nichole Bartholomew MD Work Phone: [facility] 10-01-2023 14:21-0400 Diastolic blood pressure 92 mm[Hg] Nichole Bartholomew MD Work Phone: [facility] 10-01-2023 14:21-0400 Heart rate 94 /min Nichole Bartholomew MD Work Phone: [facility] 10-01-2023 14:21-0400 Respiratory rate 18 /min Nichole Bartholomew MD Work Phone: [facility] 10-01-2023 14:21-0400 SaO2% (BldA) [Mass fraction] 98 % Nichole Bartholomew MD Work Phone: [facility] 10-01-2023 14:21-0400 Systolic blood pressure 139 mm[Hg] Nichole Bartholomew MD Work Phone: [facility] 09-09-2023 12:25-0400 Body height 167.6 cm Nichole Bartholomew MD Work Phone: [facility] 09-09-2023 12:25-0400 Body mass index (BMI) [Ratio] 36.77 kg/m2 Nichole Bartholomew MD Work Phone: [facility] 09-09-2023 12:25-0400 Body temperature 97 [degF] Nichole Bartholomew MD Work Phone: [facility] 09-09-2023 12:25-0400 Body weight 103.33 kg Nichole Bartholomew MD Work Phone: [facility] 09-09-2023 12:25-0400 Diastolic blood pressure 80 mm[Hg] Nichole Bartholomew MD Work Phone: [facility] 09-09-2023 12:25-0400 Heart rate 89 /min Nichole Bartholomew MD Work Phone: [facility] 09-09-2023 12:25-0400 Respiratory rate 12 /min Nichole Bartholomew MD Work Phone: [facility] 09-09-2023 12:25-0400 SaO2% (BldA) [Mass fraction] 96 % Nichole Bartholomew MD Work Phone: [facility] 09-09-2023 12:25-0400 Systolic blood pressure 120 mm[Hg] Nichole Bartholomew MD Work Phone: [facility] 02-14-2023 09:54-0400 Body height 167.6 cm Nichole Bartholomew MD Work Phone: [facility] 02-14-2023 09:54-0400 Body mass index (BMI) [Ratio] 43.06 kg/m2 Nichole Bartholomew MD Work Phone: [facility] 02-14-2023 09:54-0400 Body temperature 98.01 [degF] Nichole Bartholomew MD Work Phone: [facility] 02-14-2023 09:54-0400 Body weight 121.02 kg Nichole Bartholomew MD Work Phone: [facility] 02-14-2023 09:54-0400 Diastolic blood pressure 76 mm[Hg] Nichole Bartholomew MD Work Phone: [facility] 02-14-2023 09:54-0400 Heart rate 106 /min Nichole Bartholomew MD Work Phone: [facility] 02-14-2023 09:54-0400 Respiratory rate 16 /min Nichole Bartholomew MD Work Phone: [facility] 02-14-2023 09:54-0400 SaO2% (BldA) [Mass fraction] 96 % Nichole Bartholomew MD Work Phone: [facility] Comment on above: 02-14-2023 09:54-0400 Systolic blood pressure 108 mm[Hg] Nichole Bartholomew MD Work Phone: [facility] 08-06-2022 09:05-0500 Body height 167.6 cm Nichole Bartholomew MD Work Phone: [facility] 08-06-2022 09:05-0500 Body mass index (BMI) [Ratio] 44.22 kg/m2 Nichole Bartholomew MD Work Phone: [facility] 08-06-2022 09:05-0500 Body temperature 97.39 [degF] Nichole Bartholomew MD Work Phone: [facility] 08-06-2022 09:05-0500 Body weight 124.29 kg Nichole Bartholomew MD Work Phone: [facility] 08-06-2022 09:05-0500 Diastolic blood pressure 78 mm[Hg] Nichole Bartholomew MD Work Phone: [facility] 08-06-2022 09:05-0500 Heart rate 97 /min Nichole Bartholomew MD Work Phone: [facility] 08-06-2022 09:05-0500 Respiratory rate 18 /min Nichole Bartholomew MD Work Phone: [facility] 08-06-2022 09:05-0500 SaO2% (BldA) [Mass fraction] 97 % Nichole Bartholomew MD Work Phone: [facility] Comment on above: 08-06-2022 09:05-0500 Systolic blood pressure 118 mm[Hg] Nichole Bartholomew MD Work Phone: [facility] 06-25-2022 14:58-0500 Body height 167.6 cm Lias Gilman MD Work Phone: [facility] 06-25-2022 14:58-0500 Body mass index (BMI) [Ratio] 44.71 kg/m2 Lisa Gilman MD Work Phone: [facility] 06-25-2022 14:58-0500 Body weight 125.65 kg Lisa Gilman MD Work Phone: [facility] 06-25-2022 14:58-0500 Diastolic blood pressure 78 mm[Hg] Lisa Gilman MD Work Phone: [facility] 06-25-2022 14:58-0500 Systolic blood pressure 122 mm[Hg] Lisa Gilman MD Work Phone: [facility] 06-04-2022 15:08-0500 Body height 167.6 cm Nichole Bartholomew MD Work Phone: [facility] 06-04-2022 15:08-0500 Body mass index (BMI) [Ratio] 44.26 kg/m2 Nichole Bartholomew MD Work Phone: [facility] 06-04-2022 15:08-0500 Body temperature 98.49 [degF] Nichole Bartholomew MD Work Phone: [facility] 06-04-2022 15:08-0500 Body weight 124.38 kg Nichole Bartholomew MD Work Phone: [facility] 06-04-2022 15:08-0500 Diastolic blood pressure 80 mm[Hg] Nichole Bartholomew MD Work Phone: [facility] 06-04-2022 15:08-0500 Heart rate 109 /min Nichole Bartholomew MD Work Phone: [facility] 06-04-2022 15:08-0500 Respiratory rate 16 /min Nichole Bartholomew MD Work Phone: [facility] 06-04-2022 15:08-0500 SaO2% (BldA) [Mass fraction] 94 % Nichole Bartholomew MD Work Phone: [facility] Comment on above: 06-04-2022 15:08-0500 Systolic blood pressure 130 mm[Hg] Nichole Bartholomew MD Work Phone: [facility] 05-07-2022 10:22-0500 Diastolic blood pressure 72 mm[Hg] Nichole Bartholomew MD Work Phone: [facility] 05-07-2022 10:22-0500 Heart rate 106 /min Nichole Bartholomew MD Work Phone: [facility] 05-07-2022 10:22-0500 Systolic blood pressure 122 mm[Hg] Nichole Bartholomew MD Work Phone: [facility] 05-07-2022 10:20-0500 Body height 167.6 cm Nichole Bartholomew MD Work Phone: [facility] 05-07-2022 10:20-0500 Body mass index (BMI) [Ratio] 44.81 kg/m2 Nichole Bartholomew MD Work Phone: [facility] 05-07-2022 10:20-0500 Body temperature 98.6 [degF] Nichole Bartholomew MD Work Phone: [facility] 05-07-2022 10:20-0500 Body weight 125.92 kg Nichole Bartholomew MD Work Phone: [facility] 05-07-2022 10:20-0500 Respiratory rate 18 /min Nichole Bartholomew MD Work Phone: [facility] 05-07-2022 10:20-0500 SaO2% (BldA) [Mass fraction] 98 % Nichole Bartholomew MD Work Phone: [facility] Comment on above: 02-07-2022 15:06-0400 Body height 167.6 cm Eric Grubbs MD Work Phone: [facility] 02-07-2022 15:06-0400 Body mass index (BMI) [Ratio] 42.77 kg/m2 Eric Grubbs MD Work Phone: [facility] 02-07-2022 15:06-0400 Body temperature 98.01 [degF] Eric Grubbs MD Work Phone: [facility] 02-07-2022 15:06-0400 Body weight 120.2 kg Eric Grubbs MD Work Phone: [facility] 02-07-2022 15:06-0400 Diastolic blood pressure 78 mm[Hg] Eric Grubbs MD Work Phone: [facility] 02-07-2022 15:06-0400 Heart rate 100 /min Eric Grubbs MD Work Phone: [facility] 02-07-2022 15:06-0400 Respiratory rate 16 /min Eric Grubbs MD Work Phone: [facility] 02-07-2022 15:06-0400 SaO2% (BldA) [Mass fraction] 96 % Eric Grubbs MD Work Phone: [facility] 02-07-2022 15:06-0400 Systolic blood pressure 110 mm[Hg] Eric Grubbs MD Work Phone: [facility] 10-25-2020 10:09-0400 Body height 167.6 cm Shayy Juarez MD Work Phone: [facility] 10-25-2020 10:09-0400 Body mass index (BMI) [Ratio] 40.63 kg/m2 Shayy Juarez MD Work Phone: [facility] 10-25-2020 10:09-0400 Body temperature 98.71 [degF] Shayy Juarez MD Work Phone: [facility] 10-25-2020 10:09-0400 Body weight 114.17 kg Shayy Juarez MD Work Phone: [facility] 10-25-2020 10:09-0400 Diastolic blood pressure 96 mm[Hg] Shayy Juarez MD Work Phone: [facility] 10-25-2020 10:09-0400 Heart rate 101 /min Shayy Juarez MD Work Phone: [facility] 10-25-2020 10:09-0400 Systolic blood pressure 136 mm[Hg] Shayy Juarez MD Work Phone: [facility] 06-05-2020 09:38-0500 BMI (Body Mass Index) 40.32 kg/m2 [facility] 06-05-2020 09:38-0500 Body Temperature 97 [degF] [facility] 06-05-2020 09:38-0500 Body weight 113.31 kg [facility] 06-05-2020 09:38-0500 BP Diastolic 78 mm[Hg] [facility] 06-05-2020 09:38-0500 BP Systolic 110 mm[Hg] [facility] 06-05-2020 09:38-0500 Height 167.6 cm [facility] 06-05-2020 09:38-0500 Pulse (Heart Rate) 88 /min [facility] 06-05-2020 09:38-0500 Pulse Oximetry 98 % [facility] 06-05-2020 09:38-0500 Respiratory Rate 16 /min [facility] 01-03-2020 09:33-0400 BMI (Body Mass Index) 39.22 kg/m2 [facility] 01-03-2020 09:33-0400 Body Temperature 98.4 [degF] [facility] 01-03-2020 09:33-0400 Body weight 110.22 kg [facility] 01-03-2020 09:33-0400 BP Diastolic 80 mm[Hg] [facility] 01-03-2020 09:33-0400 BP Systolic 112 mm[Hg] [facility] 01-03-2020 09:33-0400 Height 167.6 cm [facility] 12-01-2019 15:270400 BMI (Body Mass Index) 38.35 kg/m2 [facility] 12-01-2019 15:270400 Body Temperature 99.1 [degF] [facility] 12-01-2019 15:0400 Body weight 107.78 kg [facility] 12-01-2019 15:270400 BP Diastolic 84 mm[Hg] [facility] 12-01-2019 15:270400 BP Systolic 134 mm[Hg] [facility] 12-01-2019 15:0400 Height 167.6 cm [facility] 12-01-2019 15:0400 Pulse (Heart Rate) 98 /min [facility] 11-08-2019 11:06-0400 BMI (Body Mass Index) 38.61 kg/m2 Eric [facility] 11-08-2019 11:06-0400 Body Temperature 97.2 [degF] Eric [facility] 11-08-2019 11:06-0400 Body weight 108.5 kg Eric [facility] 11-08-2019 11:06-0400 BP Diastolic 82 mm[Hg] Eric [facility] 11-08-2019 11:06-0400 BP Systolic 108 mm[Hg] Eric [facility] 11-08-2019 11:06-0400 Height 167.6 cm Eric [facility] 11-08-2019 11:06-0400 Pulse (Heart Rate) 118 /min Eric [facility] 11-08-2019 11:06-0400 Pulse Oximetry 98 % Eric [facility] 11-08-2019 11:06-0400 Respiratory Rate 18 /min Eric [facility] 08-19-2019 15:22-0400 BMI (Body Mass Index) 38.09 kg/m2 Eric [facility] 08-19-2019 15:220400 Body Temperature 99.61 [degF] Eric [facility] 08-19-2019 15:0400 Body weight 107.05 kg Eric [facility] 08-19-2019 15:22-0400 BP Diastolic 62 mm[Hg] Eric Grubbs [facility] 08-19-2019 15:22-0400 BP Systolic 102 mm[Hg] Eric Grubbs [facility] 08-19-2019 15:22-0400 Height 167.6 cm Eric Grubbs [facility] 08-19-2019 15:22-0400 Pulse (Heart Rate) 92 /min Eric Romie [facility] 08-19-2019 15:22-0400 Pulse Oximetry 98 % Eric Grubbs [facility] 08-19-2019 15:22-0400 Respiratory Rate 16 /min Eric [facility] 08-21-2018 11:10-0400 BMI (Body Mass Index) 35.96 kg/m2 [facility] 08-21-2018 11:10-0400 BP Diastolic 74 mm[Hg] [facility] 08-21-2018 11:10-0400 BP Systolic 110 mm[Hg] [facility] 08-21-2018 11:10-0400 Weight 101.06 kg [facility] Encounters Encounter Date Encounter Type Care Provider Facility Start: 07-13-2024 End: 07-13-2024 ambulatory KEVON FELIPE Not Available Start: 06-28-2024 End: 06-28-2024 Bamboo flowsheet Cher CROWELL Work Phone: [facility] Start: 06-28-2024 End: 06-28-2024 Bamboo flowsheet Cher CROWELL Work Phone: [facility] Start: 06-28-2024 End: 06-28-2024 Office outpatient visit 15 minutes Cher CROWELL Work Phone: [facility] Comment on above: Encounter for weight management Start: 06-28-2024 End: 06-28-2024 ambulatory CHER CRAWFORD Not Available Start: 05-31-2024 End: 05-31-2024 Bamboo flowsheet Kevon Felipe DO Work Phone: [facility] Start: 05-31-2024 End: 06-14-2024 Bamboo flowsheet Kevon Felipe DO Work Phone: [facility] Start: 05-31-2024 End: 06-14-2024 Clinisync Result Encounter Kevon Felipe DO Work Phone: [facility] Unsolicited Start: 05-31-2024 End: 06-03-2024 External Result Encounter Kevon Felipe DO Work Phone: [facility] Unsolicited Start: 05-31-2024 End: 05-31-2024 Patient encounter procedure Kevon Felipe DO Work Phone: [facility] Start: 05-31-2024 End: 05-31-2024 Periodic preventive med est patient 18-39 yrs Kevon Felipe DO Work Phone: [facility] Comment on above: Well woman exam with routine gynecological exam; Encounter for surveillance of injectable contraceptive; Weight gain; Encounter for weight management Start: 05-31-2024 End: 05-31-2024 ambulatory KEVON FELIPE Not Available Start: 05-03-2024 End: 05-03-2024 Patient encounter procedure Kevon Felipe DO Work Phone: [facility] Comment on above: Encounter for IUD in sertion; Encounter for weight management Start: 05-03-2024 End: 05-03-2024 ambulatory KEVON FELIPE Not Available Start: 04-30-2024 [facility]ulatory [facility] Start: 04-30-2024 End: 04-30-2024 Subsequent hospital visit by physician Ashly Infante MD Work Phone: [facility] Start: 04-20-2024 End: 04-20-2024 Office outpatient visit 15 minutes [facility] Comment on above: Rectal bleeding (Sushma samir Dx) Start: 04-20-2024 ambulatory ASHLY Alexandra On [facility] Start: 03-30-2024 End: 03-30-2024 Bamboo flowsheet Kevon Felipe DO Work Phone: [facility] Start: 03-30-2024 End: 03-30-2024 Bamboo flowsheet Kevon Felipe DO Work Phone: [facility] Start: 03-30-2024 End: 03-30-2024 Office outpatient visit 15 minutes Kevon Felipe DO Work Phone: [facility] Comment on above: control counse ling; Insulin resistance Start: 03-30-2024 End: 03-30-2024 ambulatory KEVON FELIPE Not Available Start: 03-12-2024 End: 03-12-2024 Office outpatient visit 40 minutes Nichole Bartholomew MD Work Phone: [facility] Comment on above: Rectal fissure (Prim genet Dx); Morbid obesity; Attention deficit hyperactivity disorder (ADHD), combined type; Bilateral impacted cerumen Start: 03-12-2024 ambulatory SELF SELF [facility] Start: 12-24-2023 End: 12-28-2023 ambulatory [facility] Start: 12-23-2023 ambulatory [facility] Start: 12-06-2023 End: 12-08-2023 ambulatory [facility] Start: 11-13-2023 End: 11-13-2023 Office consultation new/estab patient 60 min Christel Coker DO Work Phone: [facility] General Surgery Comment on above: Calculus of gallblad sandra without cholecystitis without obstruction (Primary Dx) Start: 11-13-2023 ambulatory [facility] Start: 10-13-2023 ambulatory [facility] Start: 10-13-2023 End: 10-13-2023 Subsequent hospital visit by physician Nichole Bartholomew MD Work Phone: [facility] Ultrasound Comment on above: Arrived Start: 10-13-2023 [facility] Start: 10-06-2023 ambulatory [facility] Start: 10-01-2023 End: 10-01-2023 Emergency department patient visit [facility] Start: 10-01-2023 End: 10-01-2023 Emergency department patient visit Nichole Bartholomew MD Work Phone: [facility] Emergency Department Start: 09-09-2023 End: 09-09-2023 Office outpatient visit 25 minutes Nichole Bartholomew MD Work Phone: [facility] Comment on above: Depression with anxi ety (Primary Dx); Attention deficit hyperactivity disorder (ADHD), combined type Start: 09-09-2023 ambulatory SELF SELF [facility] Start: 02-14-2023 End: 02-14-2023 Office outpatient visit 15 minutes Nichole Bartholomew MD Work Phone: [facility] Comment on above: Depression with anxi ety (Primary Dx) Start: 01-23-2023 ambulatory SELF SELF Facility:[facility] Start: 08-06-2022 End: 08-06-2022 Office outpatient visit 15 minutes Nichole Bartholomew MD Work Phone: [facility] Comment on above: Depression with anxi ety (Primary Dx); Morbid obesity Start: 06-25-2022 End: 06-25-2022 Initial preventive medicine new pt age 18-39yrs Lisa Gilman MD Work Phone: [facility] Comment on above: Encounter for gyneco logical examination without abnormal finding (Primary Dx); Screening for STDs (sexually transmitted diseases); Chlamydia infection; Acne, unspecified acne type; Encounter for other general counseling or advice on contraception Start: 06-04-2022 End: 06-04-2022 Office outpatient visit 15 minutes Nichole Bartholomew MD Work Phone: [facility] Comment on above: Depression with anxi ety (Primary Dx); Morbid obesity Start: 05-07-2022 End: 05-07-2022 Office outpatient new 60 minutes Nichole Bartholomew MD Work Phone: [facility] Comment on above: Right ear impacted c erumen (Primary Dx); Morbid obesity; Other fatigue; Depression with anxiety; Insomnia due to other mental disorder Start: 02-07-2022 End: 02-07-2022 Office outpatient visit 25 minutes Eric Grubbs MD Work Phone: [facility] Comment on above: Chronic fatigue (Sushma samir Dx); Vitamin D deficiency; Obesity: body mass index of 35.0-39.9 Start: 10-25-2020 End: 10-25-2020 Office outpatient visit 25 minutes Shayy Juarez MD Work Phone: [facility] Comment on above: Macromastia (Primary Dx); Chronic back pain, unspecified back location, unspecified back pain laterality Start: 06-05-2020 End: 06-05-2020 Office outpatient visit 25 minutes Eric Grubbs Work Phone: [facility] Comment on above: Abdominal pain, righ t lower quadrant (Primary Dx) Start: 01-03-2020 End: 01-03-2020 Periodic preventive med est patient 18-39 yrs Maureen Stoutam Work Phone: [facility] CALL TAKER Comment on above: Encounter for gyneco logical examination without abnormal finding (Primary Dx) Start: 12-01-2019 End: 12-01-2019 Office outpatient new 30 minutes Shayy Juarez Work Phone: [facility] Comment on above: Macromastia (Primary Dx); Chronic back pain, unspecified back location, unspecified back pain laterality Start: 11-08-2019 End: 11-08-2019 Office outpatient visit 15 minutes Eric Grubbs Work Phone: [facility] Comment on above: Skin tag (Primary Dx ); Macromastia; Chronic midline thoracic back pain Start: 08-19-2019 End: 08-19-2019 Office outpatient visit 25 minutes Eric Grubbs Work Phone: [facility] Comment on above: Other specified anxi ety disorders (Primary Dx); Acquired skin tag Start: 08-21-2018 End: 08-21-2018 Periodic preventive med est patient 18-39 yrs Maureen Haynes Work Phone: [facility] CALL TAKER Comment on above: Encounter for gyneco logical examination without abnormal finding (Primary Dx); Candidiasis of breast Start: 08-14-2018 End: 08-14-2018 Letter encounter Provider Rosenda [facility] Procedures Date Procedure Procedure Detail Performing Clinician Start: 05-31-2024 RECURRENT VAGINITIS (HTRX) Kevon Felipe DO Work Phone: Start: 05-31-2024 IGP,APTIMA HPV,AGE GDLN Kevon Felipe DO Work Phone: Start: 05-03-2024 Urine test visual color cmprsn meths Kevon Felipe DO Work Phone: Start: 05-03-2024 IUD INSERTION Kevon Fidel io DO Work Phone: Start: 04-30-2024 Colonoscopy flx dx w /collj spec when pfrmd Ashly Infante MD Work Phone: Start: 06-25-2022 Iadna trichomonas vaginalis amplified probe tech Lisa Gilman MD Work Phone: Start: 06-25-2022 VAGINAL INFECTION PANEL Lisa Gilman MD Work Phone: Start: 05-07-2022 Removal impacted cer umen irrigation/lvg unilat Nichole Bartholomew MD Work Phone: Start: 02-07-2022 Basic metabolic pane l calcium total Eric Grubbs MD Work Phone: Start: 02-07-2022 Complete blood count with white cell differential, automated Eric Grubbs MD Work Phone: Start: 03-02-2021 Cytp cerv/vag auto t hin layer prep mnl screen Arabella Sterling MD Work Phone: Start: 01-03-2020 PAP IG, RFX HPV ASCU Sh khari Haynes Work Phone: Start: 11-08-2019 GENERAL PROCEDURE Efren Grubbs Work Phone: Plan of Treatment Date Care Activity Detail Author Start: 03-08-2032 Tetanus vaccination TETANUS [facility] Start: 04-19-2031 Tetanus vaccination TETANUS [facility] Start: 06-06-2025 End: 06-06-2025 Patient encounter procedure 06/06/2025 11:00 AM EST Office Visit [facility] [address] [place] [phone] Kevon Wang, DO [address] [place] [address] [facility] Start: 10-12-2024 Potassium [Moles/vol ume] in Serum or Plasma POTASSIUM [facility] Start: 09-10-2024 End: 09-10-2024 Patient encounter procedure 09/10/2024 8:00 AM EDT Office Visit [facility] [address] [place] [facility] [place] [address] Nichole Bartholomew MD [address] [place] [facility] [place] [address] [facility] Start: 07-27-2024 End: 07-27-2024 Patient encounter procedure 07/27/2024 9:30 AM EST Office Visit [facility] [address] [place] [phone] Cher Crawford PA [address] [place] [address] [facility] Start: 07-13-2024 End: 07-13-2024 Patient encounter procedure 07/13/2024 10:30 AM EST Procedure Visit [facility] [address] [place] [phone] Kevon Wang, DO [address] [place] [address] [facility] Start: 06-28-2024 End: 06-28-2024 Patient encounter procedure [facility] Comment on above: Arrived Start: 05-31-2024 End: 05-31-2024 Patient encounter procedure [facility] Comment on above: Well woman exam with routine gynecological exam Start: 05-03-2024 End: 05-03-2024 Patient encounter procedure 05/03/2024 11:30 AM EST Procedure Visit [facility] [address] [facility] [place] [phone] Kevon Wang, DO [address] [place], [place] [id number] [facility] Start: 03-30-2024 End: 03-30-2024 Patient encounter procedure 03/30/2024 8:40 AM EDT Office Visit [facility] [address] [facility] [place] [phone] Kevon Wang, DO [address], [place] [id number] Arrived [facility] Comment on above: Arrived Start: 03-12-2024 End: 03-12-2024 Patient encounter procedure 03/12/2024 8:00 AM EDT Office Visit [facility] [address] [place] [address] Nichole Bartholomew MD [address] [place] [facility] [place] [address] [facility] Start: 02-08-2024 COVID-19 VACCINE ( season) COVID-19 VACCINE ( season) [facility] Start: 02-08-2024 COVID-19 VACCINE ( season) COVID-19 VACCINE ( season) [facility] Start: 02-08-2024 Influenza vaccination INFLUENZA VACC INE (#1) [facility] Start: 01-24-2024 Screening for Chlamy eric trachomatis [facility] Start: 01-15-2024 End: 01-15-2024 Patient encounter procedure 01/15/2024 11:00 AM EDT Office Visit [facility] Surgery [address] [place] [address] Christel Coker, DO [address] [place] [address] [facility] Start: 12-12-2023 End: 12-12-2023 Admission to establishment 12/12/2023 9:00 AM EDT Pre-Operative Nurse Assessment [facility] Pre Admission [address] [place] [phone] [facility] Start: 09-09-2023 End: 09-09-2023 Patient encounter procedure 09/09/2023 9:00 AM EDT Office Visit [address] [address] Nichole Bartholomew MD [address] [place] [address] [facility] Start: 06-25-2023 Screening for Chlamy eric trachomatis [facility] Start: 06-03-2023 Potassium [Moles/vol ume] in Serum or Plasma POTASSIUM [facility] Start: 05-07-2023 Screening for Chlamy eric trachomatis [facility] Start: 02-07-2023 COVID-19 VACCINE ( season) COVID-19 VACCINE ( season) [facility] Start: 02-07-2023 Influenza vaccination INFLUENZA VACC INE (#1) [facility] Start: 02-07-2023 Potassium [Moles/vol ume] in Serum or Plasma POTASSIUM [facility] Start: 01-14-2023 End: 01-14-2023 Patient encounter procedure 01/14/2023 Office Visit Family Nichole Ontiveros MD [address] [place] [id number] [facility] Start: 08-06-2022 End: 08-06-2022 Patient encounter procedure 08/06/2022 Office Visit Family Nichole Ontiveros MD [address] [place] [id number] [facility] Start: 06-25-2022 End: 06-25-2022 Patient encounter procedure 06/25/2022 Office Visit CALL TAKER Lisa Gilman MD [address] [place] [address] [facility] Start: 06-04-2022 End: 06-04-2022 Patient encounter procedure 06/04/2022 Office Visit Family Medicine Nichole Bartholomew MD [address] [place] [address] [facility] Start: 06-04-2022 Screening for malign ant neoplasm of cervix CERVICAL CANCER SCREENING DISCUSSION [facility] Comment on above: Postponed from 03/02 (patient preference) Start: 05-27-2022 COVID-19 VACCINE (#1) COVID-19 VACCI NE (#1) [facility] Comment on above: Postponed from 06/04 (patient preference) Start: 05-07-2022 End: 05-07-2023 B12/folate level B12 & FOLATE Lab Routine Morbid obesity Other fatigue Depression with anxiety Insomnia due to other mental disorder Expected: 05/07/2022, Expires: 05/07/2023 [facility] Comment on above: Expected: 05/07/2022 , Expires: 05/07/2023 Start: 05-07-2022 End: 05-07-2023 Complete blood count with white cell differential, automated CBC, EDIF, PLATELET Lab Routine Morbid obesity Other fatigue Depression with anxiety Insomnia due to other mental disorder Expected: 05/07/2022, Expires: 05/07/2023 [facility] Comment on above: Expected: 05/07/2022 , Expires: 05/07/2023 Start: 05-07-2022 End: 05-07-2023 Comprehensive metabolic 2000 panel - Serum or Plasma COMPREHENSIVE METABOLIC PANEL Lab Routine Morbid obesity Other fatigue Depression with anxiety Insomnia due to other mental disorder Expected: 05/07/2022, Expires: 05/07/2023 [facility] Comment on above: Expected: 05/07/2022 , Expires: 05/07/2023 Start: 05-07-2022 End: 05-07-2023 INSULIN INSULIN Lab Routine Morbid obesity Other fatigue Depression with anxiety Insomnia due to other mental disorder Expected: 05/07/2022, Expires: 05/07/2023 [facility] Comment on above: Expected: 05/07/2022 , Expires: 05/07/2023 Start: 05-07-2022 End: 05-07-2023 LIPID PANEL W CALCULATED LDL LIPID PANEL W CALCULATED LDL Lab Routine Morbid obesity Other fatigue Depression with anxiety Insomnia due to other mental disorder Expected: 05/07/2022, Expires: 05/07/2023 [facility] Comment on above: Expected: 05/07/2022 , Expires: 05/07/2023 Start: 05-07-2022 End: 05-07-2023 TESTOSTRONE, FREE AND TOTAL TESTOSTRONE, FREE AND TOTAL Lab Routine Morbid obesity Other fatigue Depression with anxiety Insomnia due to other mental disorder Expected: 05/07/2022, Expires: 05/07/2023 [facility] Comment on above: Expected: 05/07/2022 , Expires: 05/07/2023 Start: 05-07-2022 End: 05-07-2023 Thyrotropin [Units/volume] in Serum or Plasma TSH Lab Routine Morbid obesity Other fatigue Depression with anxiety Insomnia due to other mental disorder Expected: 05/07/2022, Expires: 05/07/2023 [facility] Comment on above: Expected: 05/07/2022 , Expires: 05/07/2023 Start: 03-02-2022 Screening for malign ant neoplasm of cervix CERVICAL CANCER SCREENING DISCUSSION [facility] Start: 02-07-2022 Influenza vaccination INFLUENZA VACC INE (#1) [facility] Start: 01-15-2021 Tetanus vaccination TETANUS [facility] Start: 01-02-2021 Screening for malign ant neoplasm of cervix CERVICAL CANCER SCREENING DISCUSSION [facility] Start: 02-08-2020 Influenza vaccination INFLUENZA VACC INE (#1) [facility] Start: 01-03-2020 End: 01-02-2021 JEAN PAUL CYTOLOGY-OIL PLANT OPERATOR, LIQUID BASED JEAN PAUL CYTOLOGY-OIL PLANT OPERATOR, LIQUID BASED Cytology Routine Encounter for gynecological examination without abnormal finding Expected: 01/03/2020, Expires: 01/02/2021 [facility] Comment on above: Expected: 01/03/2020 , Expires: 01/02/2021 Start: 12-04-2019 Screening for malign ant neoplasm of cervix CERVICAL CANCER SCREENING DISCUSSION [facility] Start: 09-06-2019 End: 09-06-2019 Office Visit 09/06/2019 Office Visit Family Medicine Eric Grubbs MD [address] [place] [address] [phone] [facility] Start: 08-21-2018 End: 08-22-2019 JEAN PAUL CYTOLOGY-OIL PLANT OPERATOR, LIQUID BASED JEAN PAUL CYTOLOGY-OIL PLANT OPERATOR, LIQUID BASED Cytology Routine Encounter for gynecological examination without abnormal finding Expected: 08/21/2018, Expires: 08/22/2019 [facility] Comment on above: Expected: 08/21/2018 , Expires: 08/22/2019 Start: 08-14-2018 End: 08-14-2018 Office Visit 08/14/2018 Office Visit CALL TAKER Maureen Haynes, BANK TELLER MACHINE MECHANIC-CHOKE REAMER [id number] [place] [address] [phone] Arrived [facility] CALL TAKER Comment on above: Arrived Start: 02-07-2018 Influenza vaccination INFLUENZA VACC INE (#1) [facility] Start: 2014 Screening for Chlamy eric trachomatis CHLAMYDIA SCREEN [facility] Start: 2013 HIV screening HIV SCREENING DISCUSSION [facility] Start: 12-04-2011 HIV screening HIV SCREENING DISCUSSION [facility] Start: 2010 COVID-19 VACCINE (1) COVID-19 VACCIN E (1) [facility] Start: 06-04-1999 COVID-19 VACCINE (#1) COVID-19 VACCI NE (#1) [facility] Start: 1998 GONORRHEA SCREEN GONORRHEA SCREEN [facility] Start: 1998 Hepatitis C antibody , confirmatory test HEPATITIS C VIRUS SCREENING [facility] Start: 1998 Potassium [Moles/vol ume] in Serum or Plasma POTASSIUM [facility] Cytology Cervical or vaginal smear or scraping study Pap Smear Pathology and Cytology Routine Well woman exam with routine gynecological exam Ordered: 05/31/2024 [facility] Work Phone: Comment on above: Ordered: 05/31/2024 PAP IG, RFX HPV ASCU PAP IG, RFX HPV ASCU LAB SEND OUTS Routine 01/03/2020 9:34 AM EDT [facility] POCT OCCULT BLOOD, FECAL-IMMUNOLOGICAL POCT OCCULT BLOOD, FECAL-IMMUNOLOGICAL Point of Care Testing Routine Rectal fissure 03/12/2024 9:12 AM EDT [facility] Removal skn tags supervisor plastics fibrq tags any area upw/15 DC REMOVAL OF SKIN TAGS DC Charge Routine Skin tag Ordered: 11/08/2019 [facility] Comment on above: Ordered: 11/08/2019 End: 10-13-2023 US Abdomen RUQ [facility] Comment on above: 1 Occurrences starti ng 10/13/2023 until 10/13/2023 Immunizations Immunization Date Immunization Notes Care Provider Clyde nelson 05-09-2024 influenza virus vaccine, unspecified formulation Kevon Wang DO Work Phone: [facility] 05-05-2023 influenza, injectabl e, quadrivalent, preservative free Nichole Bartholomew MD Work Phone: [facility] 05-05-2023 influenza virus vaccine, unspecified formulation Nichole Bartholomew MD Work Phone: [facility] 03-07-2022 influenza, injectabl e, quadrivalent, preservative free Nichole Bartholomew MD Work Phone: [facility] 02-20-2022 influenza virus vaccine, unspecified formulation Nichole Bartholomew MD Work Phone: [facility] 08-14-2021 hepatitis A vaccine, adult dosage Nichole Bartholomew MD Work Phone: [facility] 08-14-2021 tetanus toxoid, redu lynda diphtheria toxoid, and acellular pertussis vaccine, adsorbed Nichole Bartholomew MD Work Phone: [facility] 04-20-2021 influenza, injectabl e, quadrivalent, preservative free Nichole Bartholomew MD Work Phone: [facility] 03-22-2021 influenza virus vaccine, unspecified formulation Eric Grubbs MD Work Phone: [facility] 08-19-2019 influenza virus vaccine, unspecified formulation Maureen Haynes [facility] 01-24-2016 Human Papillomavirus 9-valent vaccine Provider [facility] 01-24-2016 Meningococcal Vaccin e IM (Conjugate) Provider [facility] 12-08-2012 human papilloma viru s vaccine, quadrivalent Provider [facility] 01-15-2011 human papilloma viru s vaccine, quadrivalent Provider [facility] 01-15-2011 tetanus toxoid, redu lynda diphtheria toxoid, and acellular pertussis vaccine, adsorbed Provider [facility] 04-12-2009 H1N1 Flu Vaccine Provider [facility] 04-12-2009 influenza virus vaccine, unspecified formulation Provider [facility] 12-13-2003 diphtheria, tetanus toxoids and acellular pertussis vaccine Provider [facility] 12-13-2003 measles, mumps and rubella virus vaccine Provider [facility] 12-13-2003 poliovirus vaccine, inactivated Provider [facility] 06-27-2000 haemophilus influenz ae type b vaccine, conjugate unspecified formulation Provider [facility] 04-10-2000 diphtheria, tetanus toxoids and acellular pertussis vaccine Provider [facility] 04-10-2000 measles, mumps and rubella virus vaccine Provider [facility] 04-10-2000 poliovirus vaccine, inactivated Provider [facility] 01-29-2000 varicella virus vaccine Provider [facility] 08-29-1999 haemophilus influenz ae type b conjugate and Hepatitis B vaccine Provider [facility] 07-04-1999 diphtheria, tetanus toxoids and acellular pertussis vaccine Provider [facility] 04-24-1999 diphtheria, tetanus toxoids and acellular pertussis vaccine Provider [facility] 04-24-1999 haemophilus influenz ae type b conjugate and Hepatitis B vaccine Provider [facility] 04-24-1999 poliovirus vaccine, inactivated Provider [facility] 03-08-1999 poliovirus vaccine, inactivated Provider [facility] 02-05-1999 diphtheria, tetanus toxoids and acellular pertussis vaccine Provider [facility] 02-05-1999 haemophilus influenz ae type b conjugate and Hepatitis B vaccine Provider [facility] 02-05-1999 poliovirus vaccine, inactivated Provider [facility] Payers Date Payer Category Payer Private Health Insurance AETNA AETNA xxxxxxxxxx 2017-Present xxxxxxxxxx [id number] 2017 Private Health Insurance [employer] AETNA [id number] 2017-Present [id number] 2017 Private Health Insurance [id number] 2016 Managed Care O (unspecified) [employer] [id number] 2016 Private Health Insurance [id number] 1998 Unknown [id number] .2.594 1998 Unknown [id number] 2.16.840.1.328052.3.579 .2.594 1998 Unknown [id number] 2.16.840.1.788590.3.579 .2.594 1998 Unknown [id number] 2.16.840.1.030046.3.579 .2.594 1998 Unknown [id number] 2.16.840.1.806074.3.579 .2.900 1998 Unknown [id number] 2.16.840.1.759719.3.579 .2.903 1998 Unknown [id number] 2.16.840.1.475412.3.579 .2.983 1998 Unknown [id number] 2.16.840.1.433297.3.579 .2.983 1998 Unknown [id number] 2.16.840.1.672710.3.579 .2.983 1998 Unknown [id number] 2.16.840.1.024260.3.579 .2.983 1998 Unknown [id number] 2.16.840.1.028640.3.579 .2.983 1998 Unknown [id number] 2.16.840.1.945707.3.579 .2.983 1998 Unknown [id number] 2.16.840.1.773299.3.579 .2.983 1998 Unknown [id number] 2.16.840.1.104874.3.579 .2.983 1998 Unknown [id number] 2.16.840.1.962684.3.579 .2.1259 1998 Unknown [id number] 2.16.840.1.452112.3.579 .2.1259 1998 Unknown [id number] 2.16.840.1.056708.3.579 .2.1259 1998 Unknown [id number] 2.16.840.1.647676.3.579 .2.1259 1998 Unknown [id number] 2.16.840.1.376039.3.579 .2.1259 Social History Date Type Detail Facility Start: 01-23-2018 End: 05-07-2022 Tobacco smoking status NHIS Never smoker [facility] Start: 1998 Sex Assigned At Not on file [facility] Start: 08-19-2019 End: 04-30-2024 Alcohol intake Current non-drinker of alcohol (finding) [facility] Start: 12-01-2019 End: 05-07-2022 Tobacco use and exposure Never used [facility] Exposure to SARS-CoV -2 (event) Not sure [facility] Start: 02-14-2023 End: 03-12-2024 History of Social function [facility] Start: 02-14-2023 End: 03-12-2024 Tobacco use panel [facility] Adolescent depressio n screening assessment 0 [facility] Start: 12-12-2016 Gender identity Identifies as female gender (finding) [facility] Tobacco smoking stat [facility] Tobacco smoking consumption unknown [facility] Start: 04-20-2024 Sexual orientation Bisexual (finding ) [facility] Clinical Notes 10-25-2020 to 06-28-2024 SOCRATES Hernandes - 06/28/2024 10:40 AM Mehul Royal MA - 05/31/2024 9:20 AM Mehul Royal MA - 05/03/2024 11:30 AM ESTNursing Notes - Jennifer Sanders RN - 04/30/2024 8:55 AM ESTAttachments Note Date & Type Note Facility 06-28-2024 History of Present illness Narrative Reason for Appointment: Patient ID: Javon Montoya is a 23 y.o. female who presents for Weight Management Patient presents today for Weight Management Consult. MEDICATIONS Current Outpatient Medications Medication Instructions atomoxetine (STRATTERA) 40 mg, Daily RT hydrOXYzine HCl (ATARAX) 25 mg, Daily PRN metFORMIN XR (GLUCOPHAGE-XR) 500 mg, Oral, Daily with evening meal, Do not crush, chew, or split. phentermine (ADIPEX-P) 37.5 mg, Oral, Daily before breakfast phentermine (ADIPEX-P) 37.5 mg, Oral, Daily before breakfast phentermine (ADIPEX-P) 37.5 mg, Oral, Daily before breakfast spironolactone (ALDACTONE) 100 mg, Oral, Daily RT venlafaxine XR (EFFEXOR XR) 75 mg, Daily RT ALLERGIES No Known Allergies PROBLEMS Active Ambulatory Problems Diagnosis Date Noted No Active Ambulatory Problems Resolved Ambulatory Problems Diagnosis Date Noted No Resolved Ambulatory Problems Past Medical History: Diagnosis Date ADHD (attention deficit hyperactivity disorder) (CMS/HCC) Anxiety Depression (CMS/HCC) PCOS (polycystic ovarian syndrome) HISTORY PAST MEDICAL HISTORY SOCIAL HISTORY Past Medical History: Diagnosis Date ADHD (attention deficit hyperactivity disorder) (CMS/HCC) Anxiety Depression (CMS/HCC) PCOS (polycystic ovarian syndrome) Social History Tobacco Use Smoking status: Not on file Smokeless tobacco: Not on file Substance Use Topics Alcohol use: Not on file Drug use: Not on file FAMILY HISTORY Family History Problem Relation Name Age of Onset Hodgkin's lymphoma Mother Other (Skin cancer-nose) Mother SURGICAL HISTORY Past Surgical History: Procedure Laterality Date CHOLECYSTECTOMY FEMINIZING AUGMENTATION MAMMOPLASTY Reduction WISDOM TOOTH EXTRACTION REVIEW OF SYSTEMS Review of Systems: Review of Systems Constitutional: Negative. HENT: Negative. Eyes: Negative. Respiratory: Negative. Cardiovascular: Negative. Gastrointestinal: Negative. Genitourinary: Negative. Musculoskeletal: Negative. Skin: Negative. Neurological: Negative. All other systems reviewed and are negative. Hematological: Negative. Endocrine: Negative. Allergic/Immunologic: Negative. OBJECTIVE Objective: Physical Exam Constitutional: Appearance: Normal appearance. She is normal weight. HENT: Head: Normocephalic. Cardiovascular: Rate and Rhythm: Normal rate. Pulses: Normal pulses. Pulmonary: Effort: Pulmonary effort is normal. Breath sounds: Normal breath sounds. Abdominal: Palpations: Abdomen is soft. Musculoskeletal: General: Normal range of motion. Neurological: General: No focal deficit present. Mental Status: She is alert and oriented to person, place, and time. Psychiatric: Mood and Affect: Mood normal. Behavior: Behavior normal. Thought Content: Thought content normal. Judgment: Judgment normal. Vitals and nursing note reviewed. Vitals: Estimated body mass index is 39.25 kg/m as calculated from the following: Height as of 05/03/24: 5' 6 . Weight as of this encounter: 243 lb 3.2 oz. BP: 112/74 No LMP recorded (lmp unknown). Patient has had an implant. ASSESSMENT & PLAN ICD-10-CM 1. Encounter for weight management Z76.89 phentermine (Adipex-P) 37.5 MG tablet Patient presents today for 3rd Adipex prescription. Patient desires additional weigh loss and she is currently taking metformin along with working out to achieve further results. The possibility of Ozempic for future use has been discussed. Weight and blood pressure has been captured and it has been discussed/reiterated the importance of keeping a food journal, proper nutrition/diet, and exercise regimen. Patient verbalized understanding. Patient has not lost more than 5% of her initial body weight Follow Up: Patient is to return to the office in 1 month for further evaluation to assess patient progress. Weight and blood pressure will need to be obtained in order for patient to receive 4th Adipex prescription. Documented by SOCRATES Hernandes on behalf of: SOCRATES Hernandes documented in this encounter [facility] 05-31-2024 History of Present illness Narrative Reason for Appointment: Patient ID: Javon Montoya is a 23 y.o. female who presents for Gynecologic Exam (Pt present for annual/Mirena string check. ) and Weight Management (Pt present today for Adipex #2 visit.) Patient presents today for Annual Exam. MEDICATIONS Current Outpatient Medications Medication Instructions atomoxetine (STRATTERA) 40 mg, Daily RT hydrOXYzine HCl (ATARAX) 25 mg, Daily PRN metFORMIN XR (GLUCOPHAGE-XR) 500 mg, Oral, Daily with evening meal, Do not crush, chew, or split. phentermine (ADIPEX-P) 37.5 mg, Oral, Daily before breakfast phentermine (ADIPEX-P) 37.5 mg, Oral, Daily before breakfast spironolactone (ALDACTONE) 100 mg, Oral, Daily RT venlafaxine XR (EFFEXOR XR) 75 mg, Daily RT ALLERGIES No Known Allergies PROBLEMS Active Ambulatory Problems Diagnosis Date Noted No Active Ambulatory Problems Resolved Ambulatory Problems Diagnosis Date Noted No Resolved Ambulatory Problems Past Medical History: Diagnosis Date ADHD (attention deficit hyperactivity disorder) (CMS/HCC) Anxiety Depression (CMS/HCC) PCOS (polycystic ovarian syndrome) HISTORY PAST MEDICAL HISTORY SOCIAL HISTORY Past Medical History: Diagnosis Date ADHD (attention deficit hyperactivity disorder) (CMS/HCC) Anxiety Depression (CMS/HCC) PCOS (polycystic ovarian syndrome) Social History Tobacco Use Smoking status: Not on file Smokeless tobacco: Not on file Substance Use Topics Alcohol use: Not on file Drug use: Not on file FAMILY HISTORY Family History Problem Relation Name Age of Onset Hodgkin's lymphoma Mother Other (Skin cancer-nose) Mother SURGICAL HISTORY Past Surgical History: Procedure Laterality Date CHOLECYSTECTOMY FEMINIZING AUGMENTATION MAMMOPLASTY Reduction WISDOM TOOTH EXTRACTION REVIEW OF SYSTEMS Review of Systems: Review of Systems Constitutional: Negative. HENT: Negative. Eyes: Negative. Respiratory: Negative. Cardiovascular: Negative. Gastrointestinal: Negative. Genitourinary: Negative. Musculoskeletal: Negative. Skin: Negative. Neurological: Negative. All other systems reviewed and are negative. Hematological: Negative. Endocrine: Negative. Allergic/Immunologic: Negative. OBJECTIVE Objective: Physical Exam Constitutional: Appearance: Normal appearance. She is well-developed. Genitourinary: Vulva normal. Cardiovascular: Rate and Rhythm: Normal rate and regular rhythm. Pulmonary: Effort: Pulmonary effort is normal. Breath sounds: Normal breath sounds. Abdominal: General: Bowel sounds are normal. There is no distension. Palpations: Abdomen is soft. Tenderness: There is no abdominal tenderness. There is no guarding or rebound. Musculoskeletal: General: No swelling. Normal range of motion. Right lower leg: No edema. Left lower leg: No edema. Neurological: Mental Status: She is alert and oriented to person, place, and time. Skin: General: Skin is warm and dry. Psychiatric: Mood and Affect: Mood normal. Behavior: Behavior normal. Vitals and nursing note reviewed. Exam conducted with a automotive parts advisor present. Vitals: Estimated body mass index is 38.9 kg/m as calculated from the following: Height as of 05/03/24: 5' 6 . Weight as of this encounter: 241 lb. BP: 122/72 No LMP recorded (lmp unknown). Patient has had an implant. ASSESSMENT & PLAN ICD-10-CM 1. Well woman exam with routine gynecological exam Z01.419 Pap Smear 2. Encounter for surveillance of injectable contraceptive Z30.42 3. Weight gain R63.5 4. Encounter for weight management Z76.89 phentermine (Adipex-P) 37.5 MG tablet Annual Exam: Patient presents today for an annual exam. Patient states she is doing well and has no complaints. Pap was obtained without difficulty. Pt is also here for her 2nd Adipex visit and IUD string check for her Mirena. No orders of the defined types were placed in this encounter. Follow Up: Patient is to return in one year for annual unless needed otherwise. Documented by Cee Royal MA on behalf of: Kevon Wang DO documented in this encounter [facility] 05-03-2024 History of Present illness Narrative Associated Order(s): IUD Insertion Post-Procedure Diagnose(s): Encounter for IUD insertion Reason for Appointment: Patient ID: Javon Montoya is a 23 y.o. female who presents for Contraception (Pt present today for an IUD Mirena insertion visit. ) and Weight Management (Pt present today for first initial Adipex #1 visit. ) Patient presents today for a IUD Insertion appointment. MEDICATIONS Current Outpatient Medications Medication Instructions atomoxetine (STRATTERA) 40 mg, Daily RT hydrOXYzine HCl (ATARAX) 25 mg, Daily PRN metFORMIN XR (GLUCOPHAGE-XR) 500 mg, Oral, Daily with evening meal, Do not crush, chew, or split. ondansetron ODT (ZOFRAN-ODT) 4 mg, Oral, Every 6 hours PRN phentermine (ADIPEX-P) 37.5 mg, Oral, Daily before breakfast spironolactone (ALDACTONE) 100 mg, Oral, Daily RT venlafaxine XR (EFFEXOR XR) 75 mg, Daily RT ALLERGIES No Known Allergies SURGICAL HISTORY Past Surgical History: Procedure Laterality Date CHOLECYSTECTOMY FEMINIZING AUGMENTATION MAMMOPLASTY Reduction WISDOM TOOTH EXTRACTION REVIEW OF SYSTEMS Review of Systems: Review of Systems Constitutional: Negative. HENT: Negative. Eyes: Negative. Respiratory: Negative. Cardiovascular: Negative. Gastrointestinal: Negative. Genitourinary: Negative. Musculoskeletal: Negative. Skin: Negative. Neurological: Negative. All other systems reviewed and are negative. Hematological: Negative. Endocrine: Negative. Allergic/Immunologic: Negative. OBJECTIVE Objective: Physical Exam Constitutional: Appearance: Normal appearance. She is well-developed. Genitourinary: Vulva normal. Cardiovascular: Rate and Rhythm: Normal rate and regular rhythm. Pulmonary: Effort: Pulmonary effort is normal. Breath sounds: Normal breath sounds. Abdominal: General: Bowel sounds are normal. There is no distension. Palpations: Abdomen is soft. Tenderness: There is no abdominal tenderness. There is no guarding or rebound. Musculoskeletal: General: No swelling. Normal range of motion. Right lower leg: No edema. Left lower leg: No edema. Neurological: Mental Status: She is alert and oriented to person, place, and time. Skin: General: Skin is warm and dry. Psychiatric: Mood and Affect: Mood normal. Behavior: Behavior normal. Vitals and nursing note reviewed. Exam conducted with a automotive parts advisor present. Vitals: There is no height or weight on file to calculate BMI. BP: 118/72 Patient's last menstrual period was 05/01/2024 (approximate). ASSESSMENT & PLAN Assessment/Plan Encounter Diagnosis: ICD-10-CM 1. Encounter for IUD insertion Z30.430 Levonorgestrel intrauterine device 52 mg POCT , urine manually resulted 2. Encounter for weight management Z76.89 phentermine (Adipex-P) 37.5 MG tablet IUD Insertion Performed by: Kevon Wang DO Authorized by: Kevon Wang DO Procedure: IUD insertion Consent obtained by patient, parent, or legal power of state's attorney - including discussion of procedure risks and benefits, patient questions answered, and patient education provided: yes risk: reasonably certain the patient is not Date/Time of Insertion: 05/03/2024 11:44 AM Immediately prior to procedure a time out was called: no Pelvic exam performed: no Speculum placed in vagina: yes Cervix cleaned and prepped: yes Tenaculum/Allis/Ring Forceps applied to cervix: yes Anesthesia used: no IUD inserted without complications: yes OSM: 52 mg Levonorgestrel 20 MCG/DAY; 52 mg Mirena IUD (5 years) Patient tolerated procedure well: yes Inserted with ultrasound guidance: no Intended removal date: 5 years Insertion comments: IUD Insertion: Patient presents today for an IUD Insertion. Patient is having a Mirena placed and written consent was obtained. Patient was placed in the dorsal lithotomy position with feet in stirrups. A sterile speculum ws placed into the vagina and the cervix was visualized. Cervix was cleansed with betadine and the anterior lip was grasped with ring forceps. Uterus was then gently sounded. New IUD device was gently advanced through the endocervix, toward te uterine fundus. The IUD was then deployed as device was gently removed from the uterus. The IUD strings were cut to the length from external os. All instruments were removed from the vagina. Post-procedure instructions given. All of patients questions were answered and she expressed understanding. Advised to call interim with any questions or concerns. Patient presents today for initial Adipex prescription. The importance of keeping a food journal, proper nutrition/diet, and exercise regimen while taking Adipex has been discussed. Patient verbalized understanding and signed consents to initiate (Adipex) medication therapy. Patient was given a printed prescription signed by provider to take to their local pharmacy. Follow Up: Patient is to return to the office in 1 month for further evaluation to assess patient progress. Weight and blood pressure will need to be captured in order for patient to receive 2nd prescription. Follow Up: Patient is to return to the office in 4 weeks for a string check. Documented by Cee Royal MA on behalf of: Kevon Wang DO documented in this encounter [facility] 04-30-2024 Miscellaneous Notes Patient in bay 1 in stable condition and ready for discharge, discharge instructions reviewed with patient and family who voiced understanding, AVS handed to patient, IV removed and catheter intact, patient taken out to vehicle via wheelchair. documented in this encounter [facility] 04-30-2024 Nurse Note Patient in bay 1 in stable condition and ready for discharge, discharge instructions reviewed with patient and family who voiced understanding, AVS handed to patient, IV removed and catheter intact, patient taken out to vehicle via wheelchair. [facility] 04-30-2024 History and physical note Chief Complaint: Patient presents here for initial complaints of possible rectal fissure Patient has had rectal bleeding as well HISTORY OF PRESENT ILLNESS: Javon Montoya is a 23 y.o. female with past medical history of admitted to hospital for colonoscopy Patient had initially presented here with a question of a rectal fissure. On questioning she really has had some discomfort although not this severe pain is typically associated with a rectal fissure. She initially thought she potentially also had a hemorrhoidal issue. But there was no tissue falling out. She has had this problem for about a year. She has complained of rectal bleeding off and on for the last few years even. She has had difficulty emptying. At this point she had been referred for possible colonoscopy. Discussed procedure risks and benefits he does wish to proceed for evaluation colonoscopy will plan to set up for the same. FAMILY HISTORY: Family History Family History Problem Relation Age of Onset GI Disease Mother Crohns Cancer Mother lymphoma Other - Specify Mother BCC - SKIN CANCER Cancer- Other Mother Skin cancer on nose No known problems Father No known problems Brother No known problems Brother Breast Cancer Maternal Grandmother dx in her 60s No known problems Maternal Grandfather No known problems Paternal Grandmother No known problems Paternal Grandfather Ovarian Cancer Paternal Great Grandmother older age, does not think genetic Colorectal Cancer Neg Hx Uterine Cancer Neg Hx PAST MEDICAL HISTORY: Past Medical History Past Medical History: Diagnosis Date Allergic rhinitis Depression History of chickenpox SURGICAL HISTORY: Past Surgical History Past Surgical History: Procedure Laterality Date CHOLECYSTECTOMY LAPAROSCOPIC 12/07/2023 BREAST REDUCTION 03/06/2021 Dr Balderas WISDOM TEETH EXTRACTION 2017 ALLERGIES: Allergies No Known Allergies CURRENT MEDS: Current Medications Current Outpatient Medications Medication Sig Dispense Refill atomoxetine 40 MG capsule Take 1 capsule by mouth daily. 30 capsule 2 Fexofenadine-Pseudoephedrine (RODRIGUEZ-D 24 HOUR PO) Take by mouth daily as needed. hydrOXYzine HCl 25 MG tablet Take 1 tablet by mouth at bedtime as needed for Anxiety. 90 tablet 0 spironolactone 100 MG tablet Take 1 tablet by mouth daily. Venlafaxine 75 MG Cap SR 24HR capsule XR Take 1 capsule by mouth daily. 90 capsule 3 hydrocortisone 25 MG Suppository Insert 1 suppository rectally every 12 hours. 12 suppository 0 Tirzepatide 2.5 MG/0.5ML Solution Auto-injector Inject 2.5 mg under the skin once a week. 2 mL 0 No current facility-administered medications for this visit. SOCIAL HISTORY: Social History Tobacco Use Smoking status: Never Smokeless tobacco: Never Substance Use Topics Alcohol use: No REVIEW OF SYSTEMS: 12 point ROS is negative other than that aforementioned in the HPI. PHYSICAL EXAM: Vital Signs: Vitals Vitals: 04/20/24 1434 BP: 120/54 Weight: 108.1 kg (238 lb 4.8 oz) Height: 1.676 m (5' 6 ) General - NAD, A&O conversationally, lying comfortably in bed, verbal, cooperative, pleasant, well appearing, weight appropriate for height Skin - No rashes, lesions, or induration. HEENT - NCAT. .. EOMI, PERRL Neck - Full ROM. No asymmetry, deviation, or masses. Heart - RRR. No thrill. No LE edema. Lungs - Normal effort, no accessory muscle use. Chest wall without deformity. No wheezing. Abd - ,, soft, , no masses; no rebound tenderness, grimacing, or guarding Musculoskeletal - Full range of motion of all major joints. Neurologic - Cranial nerves grossly intact. motor intact. Muscular strength is overall normal. Psychiatric - Mood, affect, and memory normal Anal evaluation-no digital evaluation was performed externally she has some bring minimal external hemorrhoid tissue no evident fissure or tenderness. LABS: CBC Lab Results Component Value Date WBC 8.4 10/13/2023 HGB 14.4 10/13/2023 HCT 41.3 10/13/2023 PLATELET 296 10/13/2023 MCV 84.1 10/13/2023 EDIF Lab Results Component Value Date RBCDISTRIBU 13.0 10/13/2023 EOSINOPHILS 0.1 10/13/2023 EOSINOPHILS 0.0 10/13/2023 BASOPHILS 0.1 10/13/2023 BASOPHILS 0.0 10/13/2023 LYMPHOCYTABS 1.1 (L) 10/13/2023 PLATELET 296 10/13/2023 MPV 7.2 (L) 10/13/2023 Lab Results Component Value Date SODIUM 139 10/13/2023 POTASSIUM 4.5 10/13/2023 CHLORIDE 104 10/13/2023 CO2 27 10/13/2023 BUN 19 10/13/2023 CREATSERUM 1.00 10/13/2023 GLUCOSE 91 10/13/2023 Lab Results Component Value Date ALT 24 10/13/2023 AST 24 10/13/2023 ALKPHOS 92 10/13/2023 BILITOTAL 0.6 10/13/2023 Lab Results Component Value Date AMYLASE 62 10/13/2023 .last IMAGING: ASSESSMENT/PLAN: Javon Montoya is a 23 y.o. rectal bleeding for colonoscopy [facility] [place] Work Phone: 04-30-2024 History and physical note Chief Complaint: Patient presents here for initial complaints of possible rectal fissure Patient has had rectal bleeding as well HISTORY OF PRESENT ILLNESS: Javon Montoya is a 23 y.o. female with past medical history of admitted to hospital for colonoscopy Patient had initially presented here with a question of a rectal fissure. On questioning she really has had some discomfort although not this severe pain is typically associated with a rectal fissure. She initially thought she potentially also had a hemorrhoidal issue. But there was no tissue falling out. She has had this problem for about a year. She has complained of rectal bleeding off and on for the last few years even. She has had difficulty emptying. At this point she had been referred for possible colonoscopy. Discussed procedure risks and benefits he does wish to proceed for evaluation colonoscopy will plan to set up for the same. FAMILY HISTORY: Family History Family History Problem Relation Age of Onset GI Disease Mother Crohns Cancer Mother lymphoma Other - Specify Mother BCC - SKIN CANCER Cancer- Other Mother Skin cancer on nose No known problems Father No known problems Brother No known problems Brother Breast Cancer Maternal Grandmother dx in her 60s No known problems Maternal Grandfather No known problems Paternal Grandmother No known problems Paternal Grandfather Ovarian Cancer Paternal Great Grandmother older age, does not think genetic Colorectal Cancer Neg Hx Uterine Cancer Neg Hx PAST MEDICAL HISTORY: Past Medical History Past Medical History: Diagnosis Date Allergic rhinitis Depression History of chickenpox SURGICAL HISTORY: Past Surgical History Past Surgical History: Procedure Laterality Date CHOLECYSTECTOMY LAPAROSCOPIC 12/07/2023 BREAST REDUCTION 03/06/2021 Dr Balderas WISDOM TEETH EXTRACTION 2017 ALLERGIES: Allergies No Known Allergies CURRENT MEDS: Current Medications Current Outpatient Medications Medication Sig Dispense Refill atomoxetine 40 MG capsule Take 1 capsule by mouth daily. 30 capsule 2 Fexofenadine-Pseudoephedrine (RODRIGUEZ-D 24 HOUR PO) Take by mouth daily as needed. hydrOXYzine HCl 25 MG tablet Take 1 tablet by mouth at bedtime as needed for Anxiety. 90 tablet 0 spironolactone 100 MG tablet Take 1 tablet by mouth daily. Venlafaxine 75 MG Cap SR 24HR capsule XR Take 1 capsule by mouth daily. 90 capsule 3 hydrocortisone 25 MG Suppository Insert 1 suppository rectally every 12 hours. 12 suppository 0 Tirzepatide 2.5 MG/0.5ML Solution Auto-injector Inject 2.5 mg under the skin once a week. 2 mL 0 No current facility-administered medications for this visit. SOCIAL HISTORY: Social History Tobacco Use Smoking status: Never Smokeless tobacco: Never Substance Use Topics Alcohol use: No REVIEW OF SYSTEMS: 12 point ROS is negative other than that aforementioned in the HPI. PHYSICAL EXAM: Vital Signs: Vitals Vitals: 04/20/24 1434 BP: 120/54 Weight: 108.1 kg (238 lb 4.8 oz) Height: 1.676 m (5' 6 ) General - NAD, A&O conversationally, lying comfortably in bed, verbal, cooperative, pleasant, well appearing, weight appropriate for height Skin - No rashes, lesions, or induration. HEENT - NCAT. .. EOMI, PERRL Neck - Full ROM. No asymmetry, deviation, or masses. Heart - RRR. No thrill. No LE edema. Lungs - Normal effort, no accessory muscle use. Chest wall without deformity. No wheezing. Abd - ,, soft, , no masses; no rebound tenderness, grimacing, or guarding Musculoskeletal - Full range of motion of all major joints. Neurologic - Cranial nerves grossly intact. motor intact. Muscular strength is overall normal. Psychiatric - Mood, affect, and memory normal Anal evaluation-no digital evaluation was performed externally she has some bring minimal external hemorrhoid tissue no evident fissure or tenderness. LABS: CBC Lab Results Component Value Date WBC 8.4 10/13/2023 HGB 14.4 10/13/2023 HCT 41.3 10/13/2023 PLATELET 296 10/13/2023 MCV 84.1 10/13/2023 EDIF Lab Results Component Value Date RBCDISTRIBU 13.0 10/13/2023 EOSINOPHILS 0.1 10/13/2023 EOSINOPHILS 0.0 10/13/2023 BASOPHILS 0.1 10/13/2023 BASOPHILS 0.0 10/13/2023 LYMPHOCYTABS 1.1 (L) 10/13/2023 PLATELET 296 10/13/2023 MPV 7.2 (L) 10/13/2023 Lab Results Component Value Date SODIUM 139 10/13/2023 POTASSIUM 4.5 10/13/2023 CHLORIDE 104 10/13/2023 CO2 27 10/13/2023 BUN 19 10/13/2023 CREATSERUM 1.00 10/13/2023 GLUCOSE 91 10/13/2023 Lab Results Component Value Date ALT 24 10/13/2023 AST 24 10/13/2023 ALKPHOS 92 10/13/2023 BILITOTAL 0.6 10/13/2023 Lab Results Component Value Date AMYLASE 62 10/13/2023 .last IMAGING: ASSESSMENT/PLAN: Javon Montoya is a 23 y.o. rectal bleeding for colonoscopy documented in this encounter [facility] 04-20-2024 History of Present illness Narrative Nurse Note: Review of Systems All other systems reviewed and are negative. Nursing Assessment: Physical Exam Dr. Bartholomew referred Pt here for a rectal fissure. Pt is here to schedule a colonoscopy. Chief Complaint: Patient presents here for initial complaints of possible rectal fissure Patient has had rectal bleeding as well HISTORY OF PRESENT ILLNESS: Javon Montoya is a 23 y.o. female with past medical history of admitted to hospital for colonoscopy Patient had initially presented here with a question of a rectal fissure. On questioning she really has had some discomfort although not this severe pain is typically associated with a rectal fissure. She initially thought she potentially also had a hemorrhoidal issue. But there was no tissue falling out. She has had this problem for about a year. She has complained of rectal bleeding off and on for the last few years even. She has had difficulty emptying. At this point she had been referred for possible colonoscopy. Discussed procedure risks and benefits he does wish to proceed for evaluation colonoscopy will plan to set up for the same. FAMILY HISTORY: Family History Problem Relation Age of Onset GI Disease Mother Crohns Cancer Mother lymphoma Other - Specify Mother BCC - SKIN CANCER Cancer- Other Mother Skin cancer on nose No known problems Father No known problems Brother No known problems Brother Breast Cancer Maternal Grandmother dx in her 60s No known problems Maternal Grandfather No known problems Paternal Grandmother No known problems Paternal Grandfather Ovarian Cancer Paternal Great Grandmother older age, does not think genetic Colorectal Cancer Neg Hx Uterine Cancer Neg Hx PAST MEDICAL HISTORY: Past Medical History: Diagnosis Date Allergic rhinitis Depression History of chickenpox SURGICAL HISTORY: Past Surgical History: Procedure Laterality Date CHOLECYSTECTOMY LAPAROSCOPIC 12/07/2023 BREAST REDUCTION 03/06/2021 Dr Balderas WISDOM TEETH EXTRACTION 2017 ALLERGIES: No Known Allergies CURRENT MEDS: Current Outpatient Medications Medication Sig Dispense Refill atomoxetine 40 MG capsule Take 1 capsule by mouth daily. 30 capsule 2 Fexofenadine-Pseudoephedrine (RODRIGUEZ-D 24 HOUR PO) Take by mouth daily as needed. hydrOXYzine HCl 25 MG tablet Take 1 tablet by mouth at bedtime as needed for Anxiety. 90 tablet 0 spironolactone 100 MG tablet Take 1 tablet by mouth daily. Venlafaxine 75 MG Cap SR 24HR capsule XR Take 1 capsule by mouth daily. 90 capsule 3 hydrocortisone 25 MG Suppository Insert 1 suppository rectally every 12 hours. 12 suppository 0 Tirzepatide 2.5 MG/0.5ML Solution Auto-injector Inject 2.5 mg under the skin once a week. 2 mL 0 No current facility-administered medications for this visit. SOCIAL HISTORY: Social History Tobacco Use Smoking status: Never Smokeless tobacco: Never Substance Use Topics Alcohol use: No REVIEW OF SYSTEMS: 12 point ROS is negative other than that aforementioned in the HPI. PHYSICAL EXAM: Vital Signs: Vitals: 04/20/24 1434 BP: 120/54 Weight: 108.1 kg (238 lb 4.8 oz) Height: 1.676 m (5' 6 ) General - NAD, A&O conversationally, lying comfortably in bed, verbal, cooperative, pleasant, well appearing, weight appropriate for height Skin - No rashes, lesions, or induration. HEENT - NCAT. .. EOMI, PERRL Neck - Full ROM. No asymmetry, deviation, or masses. Heart - RRR. No thrill. No LE edema. Lungs - Normal effort, no accessory muscle use. Chest wall without deformity. No wheezing. Abd - ,, soft, , no masses; no rebound tenderness, grimacing, or guarding Musculoskeletal - Full range of motion of all major joints. Neurologic - Cranial nerves grossly intact. motor intact. Muscular strength is overall normal. Psychiatric - Mood, affect, and memory normal Anal evaluation-no digital evaluation was performed externally she has some bring minimal external hemorrhoid tissue no evident fissure or tenderness. LABS: CBC Lab Results Component Value Date WBC 8.4 10/13/2023 HGB 14.4 10/13/2023 HCT 41.3 10/13/2023 PLATELET 296 10/13/2023 MCV 84.1 10/13/2023 EDIF Lab Results Component Value Date RBCDISTRIBU 13.0 10/13/2023 EOSINOPHILS 0.1 10/13/2023 EOSINOPHILS 0.0 10/13/2023 BASOPHILS 0.1 10/13/2023 BASOPHILS 0.0 10/13/2023 LYMPHOCYTABS 1.1 (L) 10/13/2023 PLATELET 296 10/13/2023 MPV 7.2 (L) 10/13/2023 Lab Results Component Value Date SODIUM 139 10/13/2023 POTASSIUM 4.5 10/13/2023 CHLORIDE 104 10/13/2023 CO2 27 10/13/2023 BUN 19 10/13/2023 CREATSERUM 1.00 10/13/2023 GLUCOSE 91 10/13/2023 Lab Results Component Value Date ALT 24 10/13/2023 AST 24 10/13/2023 ALKPHOS 92 10/13/2023 BILITOTAL 0.6 10/13/2023 Lab Results Component Value Date AMYLASE 62 10/13/2023 .last IMAGING: ASSESSMENT/PLAN: Javon Montoya is a 23 y.o. rectal bleeding for colonoscopy Also of note - I had discussion with the patient that there is community spread of COVID.-19. the risk of jerome COVID-19 while at the [facility] is low, however the risk cannot be completely prevented because of the community spread of the disease. The patient knows and understands and accepts that by choosing to enter the [facility] facility carries with it risks for jerome COVID-19. Patient also understands they will need to quarantine between the time of testing and surgery. And they understand that if they develop symptoms or their Covid 19 test is positive their surgery will be canceled. documented in this encounter [facility] 04-20-2024 Instructions Sandy Armas LPN - 04/20/2024 2:00 PM EST Your Colonoscopy is scheduled at [facility] on apr 30. The hospital will call you the day before your scheduled date to tell you what time to be there. They usually do not call until the afternoon. You can call the office after 3pm if you have not heard from the hospital. BLOOD THINNERS & SUPPLEMENTS: Stop taking XARELTO, PLAVIX, OR ASPIRIN 5 days prior to procedure. Stop taking COUMADIN 3 days prior to procedure. Stop taking ELIQUIS 2 days prior to procedure. Stop taking Fish Oil 1 day prior to procedure. If you are taking Phentermine or any other Appetite suppressants or weight loss medications you will need to be off of it for 7 days prior to your procedure or it will be canceled. Stop taking Phentermine (Adipex), Saxenda and Victoza (Liraglutide), Ozempic and Wegovy (Semaglutide), Mounjaro (Tirzepatide), Trulicity (Dulaglutide) THE ENTIRE DAY BEFORE: For today, continue taking your other medications as usual. This whole day you will be on CLEAR LIQUIDS ONLY. No SOLID foods. No MILK products. Examples of clear liquids include: Clear fruit juices without pulp (apple, white grape, white cranberry) Clear or strained chicken broth Lemon or [place] Jell-O or popsicles Water, including sparkling or flavored water Gatorade or any sports drink or powdered drinks that are clear. Coffee or tea (Sugar/sweetner is OK) Clear sodas (skip dinesh, seven up, or Sprite) You will need to fiber picker one bottle of Miralax 238 grams (8.3 oz) and 4 Dulcolax or bisacodyl tablets (5 mg tablets) from any pharmacy. Mix MIRALAX with 64 ounces of Gatorade or Crystal Light at 1:00 and refrigerate. 1:00 PM Take 4 Dulcolax tablets with a clear liquid. 4:00 PM Start drinking the MIRALAX, YOU CAN TAKE SEVERAL HOURS TO DRINK THE PREP. You may continue to drink clear liquids up until Midnight. If you take INSULIN, take only half of your evening dose Drink 12-20oz. of Gatorade 2 hour to their hospital arrival time. It may be of any flavor except the follow colors: Purple, Range and Red. The exceptions are as follows: History of DM Gastroparesis Bariatric surgery to include sleeves. THE MORNING OF: DO NOT EAT OR DRINK ANYTHING or your procedure could be cancelled when you get there. Do not wear jewelry, earrings, watches etc. Wear comfortable clothing and shoes (no heels). Take your blood pressure/heart medications with a small sip of water. NOT A FULL GLASS! DO NOT TAKE ANY ORAL DIABETES MEDICATION OR INSULIN. Hold all other medications until AFTER your Colonoscopy. DO NOT EAT ANY SOLID FOOD THE DAY BEFORE OR THE DAY OF YOUR COLONOSCOPY OR YOUR COLONOSCOPY WILL BE CANCELED! YOU MUST HAVE A RESPONSIBLE ADULT DRIVE YOU HOME. IF YOU DO NOT HAVE SOMEONE TO DRIVE YOU, YOUR PROCEDURE WILL BE CANCELLED. PUBLIC TRANSPORT IS NOT PERMITTED, UNLESS YOU HAVE A FAMILY MEMBER OR FRIEND WITH YOU. If you have any questions, you become ill or have to cancel your colonoscopy, please call the office at . Insurance policies can vary, so it up to you as the patient to call your insurance company and check coverage and benefits for the surgery/procedure you will be having. The following attachments cannot be sent through Care Everywhere.Colonoscopy: General Info (Malaysian)documented in this encounter [facility] 03-30-2024 History of Present illness Narrative Reason for Appointment: Patient ID: Javon Montoya is a 23 y.o. female who presents for Discuss getting IUD Patient presents today for Acute Visit. MEDICATIONS Current Outpatient Medications Medication Instructions atomoxetine (STRATTERA) 40 mg, Daily RT hydrOXYzine HCl (ATARAX) 25 mg, Daily PRN spironolactone (ALDACTONE) 100 mg, Oral, Daily RT venlafaxine XR (EFFEXOR XR) 75 mg, Daily RT ALLERGIES No Known Allergies PROBLEMS Active Ambulatory Problems Diagnosis Date Noted No Active Ambulatory Problems Resolved Ambulatory Problems Diagnosis Date Noted No Resolved Ambulatory Problems Past Medical History: Diagnosis Date ADHD (attention deficit hyperactivity disorder) (CMS/HCC) Anxiety Depression (CMS/HCC) PCOS (polycystic ovarian syndrome) HISTORY PAST MEDICAL HISTORY SOCIAL HISTORY Past Medical History: Diagnosis Date ADHD (attention deficit hyperactivity disorder) (CMS/HCC) Anxiety Depression (CMS/HCC) PCOS (polycystic ovarian syndrome) Social History Tobacco Use Smoking status: Not on file Smokeless tobacco: Not on file Substance Use Topics Alcohol use: Not on file Drug use: Not on file FAMILY HISTORY Family History Problem Relation Name Age of Onset Hodgkin's lymphoma Mother Other (Skin cancer-nose) Mother SURGICAL HISTORY Past Surgical History: Procedure Laterality Date CHOLECYSTECTOMY FEMINIZING AUGMENTATION MAMMOPLASTY Reduction WISDOM TOOTH EXTRACTION REVIEW OF SYSTEMS Review of Systems: Review of Systems Constitutional: Negative. HENT: Negative. Eyes: Negative. Respiratory: Negative. Cardiovascular: Negative. Gastrointestinal: Negative. Genitourinary: Negative. Musculoskeletal: Negative. Skin: Negative. Neurological: Negative. All other systems reviewed and are negative. Hematological: Negative. Endocrine: Negative. Allergic/Immunologic: Negative. OBJECTIVE Objective: Physical Exam Constitutional: Appearance: Normal appearance. She is well-developed. Cardiovascular: Rate and Rhythm: Normal rate and regular rhythm. Pulmonary: Effort: Pulmonary effort is normal. Breath sounds: Normal breath sounds. Abdominal: General: Bowel sounds are normal. There is no distension. Palpations: Abdomen is soft. Tenderness: There is no abdominal tenderness. There is no guarding or rebound. Musculoskeletal: General: No swelling. Normal range of motion. Right lower leg: No edema. Left lower leg: No edema. Neurological: Mental Status: She is alert and oriented to person, place, and time. Skin: General: Skin is warm and dry. Psychiatric: Mood and Affect: Mood normal. Behavior: Behavior normal. Vitals and nursing note reviewed. Exam conducted with a automotive parts advisor present. Vitals: There is no height or weight on file to calculate BMI. BP: 116/74 Patient's last menstrual period was 03/25/2024. ASSESSMENT & PLAN ICD-10-CM 1. control counseling Z30.09 Pt desires IUD for control and bleeding control. Pt also desires weight loss, discussed adding metformin and then adipex in 4 weeks after. Discussed diet and exercise routine. Pt to return for Mirena IUD and adipex. Pt to return 4 weeks after for annual Documented by Chaparrita Cadet LPN on behalf of: Kevon Wang DO documented in this encounter [facility] 03-12-2024 History of Present illness Narrative Nurse Note: Review of Systems Constitutional: Negative for chills, fever and unexpected weight change. HENT: Negative for nosebleeds and trouble swallowing. Eyes: Negative for pain. Respiratory: Negative for cough, chest tightness, shortness of breath and wheezing. Cardiovascular: Negative for chest pain and leg swelling. Gastrointestinal: Negative for constipation, diarrhea and vomiting. Endocrine: Negative for polyuria. Genitourinary: Negative for dysuria and urgency. Musculoskeletal: Negative for neck pain. Allergic/Immunologic: Positive for environmental allergies. Neurological: Negative for seizures and syncope. Hematological: Does not bruise/bleed easily. Psychiatric/Behavioral: Negative for sleep disturbance. Nursing Assessment: Subjective History of Present Illness 23 year old white female with past medical history of fatigue, vitamin D deficiency, morbid obesity, seasonal affective disorder, chronic back pain,and possible history of PCOD presenting ADHD, morbid obesity and rectal problem ADHD: Patient has had difficulty with concentration since teenage years. Stated will procristinate till last minutes and then get everything done in two hours. Avoids activities that require attention. Has difficulty with following through with tasks requiring attention. Forgetful at times. Easily distracted and organizing. Makes carless mistakes especially at work. Has to write down all tasks to be done. Will lose things . No difficulty waiting turns. Will interrupts others. Has been fidgeting at times. Will leave seat. Will talk excessively. Always on the go .Has never been diagnosed with ADHD. Symptoms more noticeable since went back to school . Patient on 09/09/23 was started on strattera 25 mg a day. Stated strattera was helping with concentration, finishing tasks , listening to others, organization,blurting out answers, waiting turns, and organization about 50% however continues to avoid activities that require attention, being forgetfull , making careless mistakes, easily distracted, losing things, interrupting others, talking excessively, fidgeting and leaving seat. Ran out of [employer] two weeks. Depression per patient is controlled.energy is good. Patient is sleeping well . Denies any thoughts of suicide . Has occasional excessive guilt. Will be going back to therapy. Has pleasure in daily activity PHQ-9; 4 Morbid obesity. History of obesity since 2019. Max weight was 279 on 01/23/23. Lost 58 pounds on mounjaro 0.5 mg once a week. Patient has been exercising daily and will be going to gym three days a week. Patient ran out of [employer] one month ago. Stated had no side effect with mounjaro except for difficulty defecating at times. Stools were soft without melena or blood per rectum. Stools were daily with mounjaro.has diarrhea with certain foods after gallbladder surgery. Has noted hair loss in last year. Patient denies any fever, chills, nausea, vomiting, constipation, melena, dysuria, cold or heat intolerance, fatigue, dizziness, syncope, chest pain, shortness of breath at rest or exertion, leg swelling, palpations, or abdominal pain. Patient has been trying to watch diet. Rectal abnormality; history of hemorrhoids for 4 years. Noted in last 8 months a fullness in rectal region without bleeding, itching or pain. Patient has clear mucose discharge. Denies any abdominal pain, nausea, vomiting, hard stools, or problems in vaginal region. No injury Objective Review of Systems Constitutional: Positive for unexpected weight change (3 pound gain). Negative for activity change, appetite change, chills, diaphoresis, fatigue and fever. HENT: Negative for congestion, ear discharge, ear pain, facial swelling, mouth sores, postnasal drip, rhinorrhea, sinus pressure, sinus pain, sore throat, tinnitus, trouble swallowing and voice change. Eyes: Negative for redness and itching. Respiratory: Negative for apnea, cough, choking, chest tightness, shortness of breath, wheezing and stridor. Cardiovascular: Negative for chest pain, palpitations and leg swelling. Gastrointestinal: Negative for abdominal distention, abdominal pain, anal bleeding, blood in stool, constipation, diarrhea, nausea, rectal pain and vomiting. Endocrine: Negative for cold intolerance, heat intolerance, polydipsia, polyphagia and polyuria. Genitourinary: Negative for difficulty urinating, dysuria, enuresis, frequency and urgency. Musculoskeletal: Negative for arthralgias, back pain and myalgias. Skin: Negative for rash. Allergic/Immunologic: Positive for environmental allergies. Negative for food allergies. Neurological: Negative for dizziness, tremors, seizures, syncope, facial asymmetry, speech difficulty, weakness, light-headedness, numbness and headaches. Hematological: Negative for adenopathy. Psychiatric/Behavioral: Negative for confusion and dysphoric mood. Psych Review of Symptoms: ADHD: Inattention Symptoms: Avoids activities requiring sustained attention, difficulty sustaining attention, difficulty with follow through, difficulty organizing, difficulty paying attention when spoken to, easily distracted, forgetfulness, loses/misplaces belongings and makes careless mistakes. Hyperactivity/Impulsivity Symptoms: Answers before the question is finished, difficulty playing quietly, problem waiting turn, fidgeting, interrupts others, leaves seat, high energy level, runs or climbs when not appropriate and excessive talking. Depressive Symptoms: No fatigue. Elimination Symptoms: No constipation. Vitals: Blood pressure 118/78, pulse 78, temperature 97.7 F (36.5 C), temperature source Oral, resp. rate 12, height 1.676 m (5' 6 ), weight 101.9 kg (224 lb 9.6 oz), last menstrual period 02/28/2024, SpO2 97%. Physical Exam Constitutional: General: She is not in acute distress. Appearance: Normal appearance. She is not ill-appearing, toxic-appearing or diaphoretic. HENT: Head: Normocephalic and atraumatic. Right Ear: Tympanic membrane, ear canal and external ear normal. There is impacted cerumen. Left Ear: Tympanic membrane, ear canal and external ear normal. There is impacted cerumen. Nose: Congestion present. No rhinorrhea. Mouth/Throat: Mouth: Mucous membranes are moist. Pharynx: Oropharynx is clear. No oropharyngeal exudate or posterior oropharyngeal erythema. Eyes: General: No scleral icterus. Right eye: No discharge. Left eye: No discharge. Extraocular Movements: Extraocular movements intact. Conjunctiva/sclera: Conjunctivae normal. Pupils: Pupils are equal, round, and reactive to light. Neck: Thyroid: No thyromegaly. Vascular: No carotid bruit or JVD. Trachea: No tracheal deviation. Cardiovascular: Rate and Rhythm: Normal rate and regular rhythm. Pulses: Normal pulses. Heart sounds: Normal heart sounds. No murmur heard. No friction rub. No gallop. Comments: No jvd, bruit or pedal edema Pulmonary: Effort: Pulmonary effort is normal. No respiratory distress. Breath sounds: Normal breath sounds. No stridor. No wheezing, rhonchi or rales. Chest: Chest wall: No tenderness. Abdominal: General: Abdomen is flat. Bowel sounds are normal. There is no distension. Palpations: Abdomen is soft. There is no mass. Tenderness: There is no abdominal tenderness. There is no right CVA tenderness, left CVA tenderness, guarding or rebound. Hernia: No hernia is present. Genitourinary: Rectum: Guaiac result negative. Comments: Fissure at 6 oclock position with no active bleeding. No fullness in rectum felt Musculoskeletal: Cervical back: Normal range of motion and neck supple. No rigidity or tenderness. No muscular tenderness. Right lower leg: No edema. Left lower leg: No edema. Lymphadenopathy: Head: Right side of head: No submental, submandibular, tonsillar, preauricular, posterior auricular or occipital adenopathy. Left side of head: No submental, submandibular, tonsillar, preauricular, posterior auricular or occipital adenopathy. Cervical: No cervical adenopathy. Neurological: General: No focal deficit present. Mental Status: She is alert and oriented to person, place, and time. Gait: Gait normal. Psychiatric: Mood and Affect: Mood normal. Behavior: Behavior normal. Neurological Exam Mental Status Alert. Oriented to person, place, and time. Cranial Nerves CN III, IV, : Extraocular movements intact bilaterally. Pupils equal round and reactive to light bilaterally. Gait Normal gait. Assessment and Plan Bilateral cerumen impaction. Patient to try over the counter debrox 10 drops twice a day for 5 days then irrigate ears 2. Rectal fissure. Warm bath soaks and hydrocortison suppository for at least 6 days. If not improving over the next 6 days, call and will set up with surgeon to do colonoscopy 3. Morbide obesity. Patient to restart mounjaro at 2.5 mg once a week. After one month, can increase to 5.0 mg once a week. As long as patient has no side effect of nausea, vomiting, constipation or abdominal pain, can increase medication. No family or personal history of thyroid cancer or pancreatitis. 4. ADHD . Increase strattera to 40 mg a day since it is not controlled. Recheck in 3 months. 5. Depression controlled. No change in venlfaxine dosage Time in 8:29 am and time out 9:09 am. Total time 40 minutes documented in this encounter [facility] 03-12-2024 Instructions Nichole Bartholomew MD - 03/12/2024 8:00 AM EDT Bilateral cerumen impaction. Patient to try over the counter debrox 10 drops twice a day for 5 days then irrigate ears 2. Rectal fissure. Warm bath soaks and hydrocortison suppository for at least 6 days. If not improving over the next 6 days, call and will set up with surgeon to do colonoscopy 3. Morbide obesity. Patient to restart mounjaro at 2.5 mg once a week. After one month, can increase to 5.0 mg once a week. As long as patient has no side effect of nausea, vomiting, constipation or abdominal pain, can increase medication. No family or personal history of thyroid cancer or pancreatitis. 4. ADHD . Increase strattera to 40 mg a day since it is not controlled. Recheck in 3 months. 5. Depression controlled. No change in venlfaxine dosage documented in this encounter [facility] 12-24-2023 Note [facility] ED[facility] OFF[facility] [address] [facility] [facility] [phone] Patient: Javon Montoya [address] [facility] [facility] [address] There is no home phone number on file. Date of : 2000 Chief Complaint Patient presents with Post-op Pt reports to be doing well no complaints POST-OP CHOLECYSTECTOMY Pt presents for follow up after undergoing laparoscopic cholecystectomy 12/07/23. Tolerating regular diet, denies abdominal pain, nausea/vomiting, diarrhea. She is pleased with her progress. All symptoms that she had prior to surgery have totally resolved. Physical Exam PACU Vitals 12/24/23 0849 BP: 111/81 Pulse: 98 SpO2: 97% GENERAL: Awake, alert, NAD. ABDOMEN--soft, ND, NT. Incisions healing well. PATHOLOGY: Acute on chronic cholecystitis with cholelithiasis and cholesterolosis IMPRESSION: S/P laparoscopic cholecystectomy PLAN: OK to return to work/school. F/U PRN. Lifting restrictions until 3 weeks post op. AUTHENTICATED BY RUDDY RICE ON 12/24/2023 09:13:14 [facility] 12-08-2023 Note DAILY SURGERY PROGRE SS NOTE Patient Name: Javon Montoya MR #: [id number] Assessment/Plan: * Acute calculous cholecystitis Assessment & Plan - Hemodynamics stable, afebrile, on RA - AST decreased - Pain: Vail and Tylenol with IV Dilaudid for breakthrough pain - Diet: Low fat - Dressing: Steri-strips - Urine output is good - Pulmonary toilet: IS q1h WA, encouraged use - Activity as tolerated, encouraged ambulation - VTE prophylaxis with SCDs and ambulation - MRCP due to concern for stone in duct Subjective/Objective: Perpetual Assessment: POD #1; s/p laparoscopic cholecystectomy. Patient is feeling much better compared to yesterday. Pain is controlled. Tolerating diet. Denies nausea or vomiting. + Flatus. Voiding. Physical Examination: Blood pressure 104/69, pulse 82, temperature 97.8 degrees F (36.6 degrees C), temperature source Oral, resp. rate 18, height 5' 6 , weight 102 kg (224 lb 12.8 oz), last menstrual period 11/07/2023, SpO2 97%. General: Alert & orientated x 3, cooperative, no distress Abdomen: Active bowel sounds, soft, appropriately tender to palpation incisions, incisions well-approximate by Steri-Strips Psych: Mood and affect appropriate Intake/Output last 3 shifts: I/O last 3 completed shifts: In: 3405.3 [I.V.:3224.3; IV Piggyback:181] Out: 10 [Blood:10] Results/Medications Reviewed 12/08/23 9:04 AM: Laboratory, Radiology, and Medications - Laboratory Studies: Results from last 7 days Lab Units 12/08/23 0740 12/07/23 04112/06/23 1347 WBC K/mcL 8.22 7.71 11.63* HGB g/dL 12.0 12.5 15.2 HCT % 35.2* 37.4 44.2 PLT K/mcL 240 267 307 Results from last 7 days Lab Units 12/08/23 0740 12/07/23 0417 12/06/23 1347 SODIUM mmol/L 141 138 139 POTASSIUM mmol/L 4.0 4.0 4.7 CHLORIDE mmol/L 106 106 102 BUN mg/dL 10 10 16 CREATININE mg/dL 0.90 0.83 0.84 GLUCOSE mg/dL 99 89 108* CALCIUM mg/dL 8.7 8.6 9.6 Results from last 7 days Lab Units 12/08/23 0740 12/07/23 04112/06/23 1347 ALK PHOS U/L 93 119 151* BILIRUBIN TOTAL mg/dL 0.4 0.9 0.9 BILIRUBIN DIRECT mg/dL -- -- 0.5* TOTAL PROTEIN g/dL 5.9* 6.0 7.6 ALT U/L 81* 126* 145* AST U/L 34 93* 234* Pathology: In process Assessment Detail: Based on current clinical information, the expected discharge date is: today (12/08/2023) pending [facility] AUTHENTICATED BY RUDDY RICE, ON 12/08/2023 13:12:14 12-06-2023 Note HISTORY AND PHYSICAL EXAM Patient: Name:Javon Montoya CSN: [id number] Date of : 2000 CC: Chief Complaint Patient presents with Abdominal Pain HPI: This 23 y.o. female presents to the emergency department with complaints of acute onset of upper abdominal pain. Her pain is located in the right upper quadrant and radiates to the back. She has associated nausea without emesis. Her symptoms were precipitated by high-fat meal she ate [employer] late last night. She presented to the emergency department and had lab work which is consistent with acute calculus cholecystitis. CAT scan did not show any significant thickening of the gallbladder or abnormal dilation of her bile ducts. I have been consulted for further evaluation and management. Of note this patient is already undergoing workup as an outpatient for symptomatic cholelithiasis and is actually scheduled to undergo surgery at an outside hospital in a couple weeks. The patient declined to go to the outside hospital and wished to have her care remain at [place]. At the time of my exam she is tolerating her liquid diet and her pain is significantly improved. She has only had a couple episodes of gallbladder attacks. Past Medical History: Diagnosis Date Acne ADHD Anxiety Depression PCOS (polycystic ovarian syndrome) Current Facility-Administered Medications: HYDROmorphone (DILAUDID) injection 0.25-0.5 mg, 0.25-0.5 mg, Intravenous, Q3H PRN, Kenton Arana CNP, 0.5 mg at 12/06/231819 naloxone (NARCAN) injection 0.1 mg, 0.1 mg, Intravenous, PRN AND Notify physician, , , Until Discontinued AND naloxone (NARCAN) injection 0.4 mg, 0.4 mg, Intravenous, PRN, Kenton Arana CNP ondansetron (ZOFRAN) injection 4 mg, 4 mg, Intravenous, Q8H PRN, Kenton Arana CNP senna-docusate (SENNA-S) 8.6-50 mg per tablet 1 tablet, 1 tablet, Oral, BID, Kenton Arana CNP, 1 tablet at 12/06/232022 [COMPLETED] Insert peripheral IV, , , Once AND Saline lock IV, , , Once AND sodium chloride (PF) (NS) flush 5 mL, 5 mL, Intravenous, PRN AND sodium chloride 0.9% (NS), 0-150 mL/hr, Intravenous, PRN, Emergency, Triage Protocol, , Last Rate: 50 mL/hr at 12/06/23 1716, 50 mL/hr at 12/06/23 171 Allergies: Patient has no known allergies. Social History Socioeconomic History Marital status: Single Tobacco Use Smoking status: Never Passive exposure: Never Smokeless tobacco: Never Vaping Use Vaping status: Never Used Substance and Sexual Activity Alcohol use: Never Drug use: Never Social Determinants of Health Food Insecurity: No Food Insecurity (12/06/2023) Hunger Vital Sign Worried About Running Out of Food in the Last Year: Never true Ran Out of Food in the Last Year: Never true Transportation Needs: No Transportation Needs (12/06/2023) PRAPARE - Transportation Lack of Transportation (Medical): No Lack of Transportation (Non-Medical): No Housing Stability: Low Risk (12/06/2023) Housing Stability Vital Sign Unable to Pay for Housing in the Last Year: No Number of Times Moved in the Last Year: 1 Homeless in the Last Year: No Past Surgical History: Procedure Laterality Date BREAST REDUCTION Bilateral WISDOM TOOTH EXTRACTION History reviewed. No pertinent family history. Review of Systems Constitutional: Negative for chills and fever. HENT: Negative. Eyes: Negative. Respiratory: Negative for cough and shortness of breath. Cardiovascular: Negative for chest pain and palpitations. Gastrointestinal: Positive for abdominal pain and nausea. Negative for vomiting. Endocrine: Negative. Genitourinary: Negative. Negative for difficulty urinating and dysuria. Musculoskeletal: Negative. Negative for arthralgias and myalgias. Skin: Negative for color change and rash. Neurological: Negative for dizziness and weakness. Hematological: Negative for adenopathy. Does not bruise/bleed easily. Psychiatric/Behavioral: Negative. All other systems reviewed and are negative. BP 112/75 Pulse 88 Temp 98.5 degrees F (36.9 degrees C) (Oral) Resp 16 Ht 5' 6 Wt 99.8 kg (220 lb) LMP 11/07/2023 (Exact Date) SpO2 98% BMI 35.51 kg/m Physical Exam Physical Exam GENERAL: Awake, alert, oriented x 3. No acute distress. Mood, affect appropriate. HEAD: Head atraumatic, normocephalic. She does have a nose piercing as well as a piercing on her left ear. EYES: No exophthalmos, no icterus, lids, conjunctiva normal. NECK: Supple, nontender, trachea midline, no thyromegaly, no palpable lymphadenoapthy in cervical or supraclavicular basins. HEART: RRR, no peripheral edema noted. LUNGS: Chest rise is symmetrical with respiration and she is breathing comfortably on room air.. No accessory mm of respiration use. ABDOMEN: soft, nondistended. Tender to palpation in the right upper quadrant. No peritonitis. No palpable masses, herni (more content not included)... 11-13-2023 History and physical note CC: Chief Complaint Patient presents with New Patient HPI: Javon Montoya is an 22 y.o. female who was referred by pcp for evaluation of gallbladder problems. Problems were first noted several weeks ago. Current symptoms include RUQ Pain. Pancreatic symptoms include none. Patient denies fever, chills. Symptoms are stable. She describes the pain as aching and rates it at 5/10. The pain is associated with eating. The pain is worsened by: eating. It is relieved by: nothing. Additional associated symptoms include: nausea. Past Medical History: Diagnosis Date Allergic rhinitis Depression History of chickenpox Past Surgical History: Procedure Laterality Date BREAST REDUCTION 03/06/2021 Dr Balderas WISDOM TEETH EXTRACTION 2018 Outpatient Medications Prior to Visit Medication Sig Dispense Refill atomoxetine 25 MG capsule Take 1 capsule by mouth daily. 30 capsule 2 Fexofenadine-Pseudoephedrine (RODRIGUEZ-D 24 HOUR PO) Take by mouth daily as needed. hydrOXYzine HCl 25 MG tablet Take 1 tablet by mouth at bedtime as needed for Anxiety. 90 tablet 0 spironolactone 100 MG tablet Take 1 tablet by mouth daily. Tirzepatide (MOUNJARO SC) Inject 0.5 mg under the skin once a week. Venlafaxine 75 MG Cap SR 24HR capsule XR Take 1 capsule by mouth daily. 90 capsule 2 No facility-administered medications prior to visit. No Known Allergies Social History Socioeconomic History Marital status: Single Spouse name: Not on file Number of children: Not on file Years of education: Not on file Highest education level: Not on file Occupational History Not on file Tobacco Use Smoking status: Never Smokeless tobacco: Never Vaping Use Vaping status: Never Used Substance and Sexual Activity Alcohol use: No Drug use: Never Sexual activity: Not Currently Partners: Male control/protection: Condom Other Topics Concern Service No Blood Transfusions No Caffeine Concern Not Asked Occupational Exposure Not Asked Hobby Hazards Not Asked Sleep Concern Not Asked Stress Concern Not Asked Weight Concern Not Asked Special Diet Not Asked Back Care Not Asked Exercise Not Asked Bike Helmet Not Asked Seat Belt Yes Domestic Violence No Social History Narrative Not on file Social Determinants of Health Financial Resource Strain: Not on file Food Insecurity: Not on file Transportation Needs: Not on file Physical Activity: Not on file Stress: Not on file Social Connections: Not on file Intimate Partner Violence: Not on file Housing Stability: Not on file Family History Problem Relation Age of Onset GI Disease Mother Crohns Cancer Mother lymphoma Other - Specify Mother BCC - SKIN CANCER Cancer- Other Mother Skin cancer on nose No known problems Father No known problems Brother No known problems Brother Breast Cancer Maternal Grandmother dx in her 60s No known problems Maternal Grandfather No known problems Paternal Grandmother No known problems Paternal Grandfather Ovarian Cancer Paternal Great Grandmother older age, does not think genetic Colorectal Cancer Neg Hx Uterine Cancer Neg Hx Review of Systems Constitutional: Negative. HENT: Negative. Eyes: Negative. Respiratory: Negative. Cardiovascular: Negative. Gastrointestinal: otherwise Negative. Musculoskeletal: Negative. Skin: Negative. Allergic/Immunologic: Negative. Neurological: Negative. Hematological: Negative. Psychiatric/Behavioral: Negative Physical Exam Ht 1.676 m (5' 6 ) Wt 100.4 kg (221 lb 4.8 oz) BMI 35.72 kg/m Smoking Status Never Wt Readings from Last 3 Encounters: 11/13/23 100.4 kg (221 lb 4.8 oz) 09/09/23 103.3 kg (227 lb 12.8 oz) 02/14/23 121 kg (266 lb 12.8 oz) Body mass index is 35.72 kg/m . PHYSICAL EXAM VITAL SIGNS: Ht 1.676 m (5' 6 ) Wt 100.4 kg (221 lb 4.8 oz) BMI 35.72 kg/m Smoking Status Never Constitutional: Well developed, Well nourished, No acute distress, Non-toxic appearance. HENT: Normocephalic, Atraumatic, Oropharynx moist, Sclera anicteric, No oral exudates. Neck- No tenderness, Supple, No stridor. Eyes: Normal conjunctiva. Anicteric sclera. Respiratory: Normal breath sounds, No respiratory distress, No wheezing, No chest tenderness. Cardiovascular: Normal heart rate, Normal rhythm, No murmurs GI: Soft, No tenderness, No masses, No pulsatile masses. : No CVA tenderness Musculoskeletal: No deformity or tenderness in upper or lower extremities. Calves symmetric. No edema. Back- No tenderness. Integument: Warm, Dry, No rash. Lymphatic: No lymphadenopathy noted in neck or groin. Neurologic: Alert & oriented x 3, Normal motor function, Normal sensory function, No focal deficits noted. No meningismus. Psychiatric: Affect normal, Judgment normal, Mood normal. STUDIES: Javon was seen today for new patient. Diagnoses and all orders for this visit: Calculus of gallbladder without cholecystitis without obstruction PLAN 1. Diagnostic testing: rev 2. Labs rev 3. Symptomatic and wishes to undergo surgery. Conservative measures discussed as well but she has chosen surgery All r/b discussed All r/b discussed. Risks including bleeding, infection, injury to bowel, bile duct leak or injury and risks of anesthesia. Patient understands these risks and wishes to proceed This patient presented with a condition that required my immediate and ongoing attention. My presence and the care I provided were necessary to optimize the patients care in a situation that required a higher level of complexity. Significant time was spent prior to the consultation reviewing all available pertinent imaging and labs followed by time spent during the patient encounter to come to a complete assessment and plan. This included time at the bedside with the patient, time reviewing the medical record to understand the patients underlying medical history, time ordering tests, reviewing and interpreting test results, and time spent in discussion with the patient, family, nursing, and consultants. The time included here does not include time spent with procedures [facility] 11-13-2023 History and physical note CC: Chief Complaint Patient presents with New Patient HPI: Javon Montoay is an 22 y.o. female who was referred by pcp for evaluation of gallbladder problems. Problems were first noted several weeks ago. Current symptoms include RUQ Pain. Pancreatic symptoms include none. Patient denies fever, chills. Symptoms are stable. She describes the pain as aching and rates it at 5/10. The pain is associated with eating. The pain is worsened by: eating. It is relieved by: nothing. Additional associated symptoms include: nausea. Past Medical History: Diagnosis Date Allergic rhinitis Depression History of chickenpox Past Surgical History: Procedure Laterality Date BREAST REDUCTION 03/06/2021 Dr Balderas WISDOM TEETH EXTRACTION 2018 Outpatient Medications Prior to Visit Medication Sig Dispense Refill atomoxetine 25 MG capsule Take 1 capsule by mouth daily. 30 capsule 2 Fexofenadine-Pseudoephedrine (RODRIGUEZ-D 24 HOUR PO) Take by mouth daily as needed. hydrOXYzine HCl 25 MG tablet Take 1 tablet by mouth at bedtime as needed for Anxiety. 90 tablet 0 spironolactone 100 MG tablet Take 1 tablet by mouth daily. Tirzepatide (MOUNJARO SC) Inject 0.5 mg under the skin once a week. Venlafaxine 75 MG Cap SR 24HR capsule XR Take 1 capsule by mouth daily. 90 capsule 2 No facility-administered medications prior to visit. No Known Allergies Social History Socioeconomic History Marital status: Single Spouse name: Not on file Number of children: Not on file Years of education: Not on file Highest education level: Not on file Occupational History Not on file Tobacco Use Smoking status: Never Smokeless tobacco: Never Vaping Use Vaping status: Never Used Substance and Sexual Activity Alcohol use: No Drug use: Never Sexual activity: Not Currently Partners: Male control/protection: Condom Other Topics Concern Service No Blood Transfusions No Caffeine Concern Not Asked Occupational Exposure Not Asked Hobby Hazards Not Asked Sleep Concern Not Asked Stress Concern Not Asked Weight Concern Not Asked Special Diet Not Asked Back Care Not Asked Exercise Not Asked Bike Helmet Not Asked Seat Belt Yes Domestic Violence No Social History Narrative Not on file Social Determinants of Health Financial Resource Strain: Not on file Food Insecurity: Not on file Transportation Needs: Not on file Physical Activity: Not on file Stress: Not on file Social Connections: Not on file Intimate Partner Violence: Not on file Housing Stability: Not on file Family History Problem Relation Age of Onset GI Disease Mother Crohns Cancer Mother lymphoma Other - Specify Mother BCC - SKIN CANCER Cancer- Other Mother Skin cancer on nose No known problems Father No known problems Brother No known problems Brother Breast Cancer Maternal Grandmother dx in her 60s No known problems Maternal Grandfather No known problems Paternal Grandmother No known problems Paternal Grandfather Ovarian Cancer Paternal Great Grandmother older age, does not think genetic Colorectal Cancer Neg Hx Uterine Cancer Neg Hx Review of Systems Constitutional: Negative. HENT: Negative. Eyes: Negative. Respiratory: Negative. Cardiovascular: Negative. Gastrointestinal: otherwise Negative. Musculoskeletal: Negative. Skin: Negative. Allergic/Immunologic: Negative. Neurological: Negative. Hematological: Negative. Psychiatric/Behavioral: Negative Physical Exam Ht 1.676 m (5' 6 ) Wt 100.4 kg (221 lb 4.8 oz) BMI 35.72 kg/m Smoking Status Never Wt Readings from Last 3 Encounters: 11/13/23 100.4 kg (221 lb 4.8 oz) 09/09/23 103.3 kg (227 lb 12.8 oz) 02/14/23 121 kg (266 lb 12.8 oz) Body mass index is 35.72 kg/m . PHYSICAL EXAM VITAL SIGNS: Ht 1.676 m (5' 6 ) Wt 100.4 kg (221 lb 4.8 oz) BMI 35.72 kg/m Smoking Status Never Constitutional: Well developed, Well nourished, No acute distress, Non-toxic appearance. HENT: Normocephalic, Atraumatic, Oropharynx moist, Sclera anicteric, No oral exudates. Neck- No tenderness, Supple, No stridor. Eyes: Normal conjunctiva. Anicteric sclera. Respiratory: Normal breath sounds, No respiratory distress, No wheezing, No chest tenderness. Cardiovascular: Normal heart rate, Normal rhythm, No murmurs GI: Soft, No tenderness, No masses, No pulsatile masses. : No CVA tenderness Musculoskeletal: No deformity or tenderness in upper or lower extremities. Calves symmetric. No edema. Back- No tenderness. Integument: Warm, Dry, No rash. Lymphatic: No lymphadenopathy noted in neck or groin. Neurologic: Alert & oriented x 3, Normal motor function, Normal sensory function, No focal deficits noted. No meningismus. Psychiatric: Affect normal, Judgment normal, Mood normal. STUDIES: US Bajwa was seen today for new patient. Diagnoses and all orders for this visit: Calculus of gallbladder without cholecystitis without obstruction PLAN 1. Diagnostic testing: rev 2. Labs rev 3. Symptomatic and wishes to undergo surgery. Conservative measures discussed as well but she has chosen surgery All r/b discussed All r/b discussed. Risks including bleeding, infection, injury to bowel, bile duct leak or injury and risks of anesthesia. Patient understands these risks and wishes to proceed This patient presented with a condition that required my immediate and ongoing attention. My presence and the care I provided were necessary to optimize the patients care in a situation that required a higher level of complexity. Significant time was spent prior to the consultation reviewing all available pertinent imaging and labs followed by time spent during the patient encounter to come to a complete assessment and plan. This included time at the bedside with the patient, time reviewing the medical record to understand the patients underlying medical history, time ordering tests, reviewing and interpreting test results, and time spent in discussion with the patient, family, nursing, and consultants. The time included here does not include time spent with procedures documented in this encounter [facility] 11-13-2023 History of Present illness Narrative Nurse Note: Review of Systems Nursing Assessment: Physical Exam Javon Montoya is a 22 y.o. female Pt is here for gallbladder Recent imagin10/13/23 gb us Has abdominal pain on and off depending on what she eats Foods that make pain worse: high fat foods, fried food denies N/V denies C/D documented in this encounter [facility] 11-13-2023 Instructions Ele Coley LPN - 11/13/2023 1:30 PM EDT PLEASE NOTE: SURGERY WILL BE CANCELLED NO TOBACCO (CIGARETTES, VAPES, CHEWING TOBACCO) PRODUCT AFTER MIDNIGHT. NO ILLICIT SUBSTANCES SHOULD BE TAKEN LEADING UP TO SURGERY OR PROCEDURE. IE: COCAINE OR METHAMPHETAMINES SURGERY INSTRUCTIONS Your surgery is scheduled at [facility] on December 22. Pre-admission testing (PAT) is scheduled on December 11 @ 9:00a. Please see attached PAT sheet and map for more information regarding OTC medications and products. Pre-admission testing may include blood work, x-rays, EKG, or other tests. Registration will call the day prior to pre-admission testing to get you pre-registered. Stop taking Phentermine (Adipex) and any OTC weight loss supplements 14 days prior to procedure. ON THE DAY PRIOR TO THE PROCEDURE NOTHING TO EAT OR DRINK AFTER MIDNIGHT NO TOBACCO PRODUCTS AFTER MIDNIGHT DO NOT DRINK ALCOHOL THE MORNING OF PROCEDURE DO NOT EAT OR DRINK ANYTHING. Do not wear jewelry, earrings, watches, etc. Wear comfortable clothing and shoes. (No heels) Note: YOU MUST HAVE A RESPONSIBLE ADULT DRIVE YOU HOME. IF YOU DO NOT HAVE SOMEONE TO DRIVE YOU, YOUR PROCEDURE WILL BE CANCELLED. PUBLIC TRANSPORT IS NOT PERMITTED, UNLESS YOU HAVE A FAMILY MEMBER OR FRIEND WITH YOU. FAILURE TO APPEAR FOR P.A.T WILL RESULT IN YOUR SURGERY BEING CANCELED If you have any questions, you become ill or have to cancel your surgery, please call the office at [phone] option #3. PLEASE BE SURE TO CHECK WITH YOUR INSURANCE ABOUT BENEFITS AND COVERAGE FOR YOUR SURGERY/PROCEDURE. OUR PRIOR AUTHORIZATION TEAM WILL CHECK WITH YOUR INSURANCE TO BE SURE IT IS AN AUTHORIZED SURGERY/PROCEDURE THANK YOU. The following attachments cannot be sent through Care Everywhere.Cholecystectomy: Pre-op (Malaysian)documented in this encounter [facility] 10-01-2023 Emergency department Note Patient came up to the desk and stated she was feeling better and she wanted to go home. [facility] 10-01-2023 Emergency department Note Patient came up to the desk and stated she was feeling better and she wanted to go home. documented in this encounter [facility] 09-09-2023 History of Present illness Narrative Nurse Note: Review of Systems Constitutional: Negative for chills, fever and unexpected weight change. HENT: Negative for nosebleeds and trouble swallowing. Eyes: Negative for pain. Respiratory: Negative for cough, chest tightness, shortness of breath and wheezing. Cardiovascular: Negative for chest pain and leg swelling. Gastrointestinal: Positive for nausea. Negative for constipation, diarrhea and vomiting. Endocrine: Negative for polyuria. Genitourinary: Negative for dysuria and urgency. Musculoskeletal: Negative for neck pain. Allergic/Immunologic: Positive for environmental allergies. Neurological: Positive for dizziness and light-headedness. Negative for seizures and syncope. Hematological: Does not bruise/bleed easily. Psychiatric/Behavioral: Negative for sleep disturbance. Nursing Assessment: Subjective History of Present Illness 22 year old white female with past medical history of fatigue, vitamin D deficiency, morbid obesity, seasonal affective disorder, chronic back pain,and possible history of PCOD presenting depression with anxiety and concern for ADHD Depression with anxiety: Present since 2017 treated initially with wellbutrin 150 mg intermittent which was only partially effective despite taking it for 5 months. . Patient does not drink alcohol. Patient was placed on effexor xr 75 mg a day on 05/14/22. Patient currently denies any anxiety at this time or feeling of being overwhelmed with anxiety. Has been taking hydroxyzine four times a week since starting school to help with sleep Patient able to relax daily and has not feeling of being overwhelemed with anxiety. Able to relax. Occasionally feels restless. No feeling of doom. Patient denies any depression or decreased interest in favorite activities. Has been with friends and more active. Patient denies any fatigue. Denies feeling of excessive guilt. Appetite is normal. Patient denies any thoughts of suicide patient currently walking More often. Patient currently single with no children. No gun in house. 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 Stated will procristinate till last minutes and then get everything done in two hours. Avoids activities that require attention. Has difficulty with following through with tasks requiring attention. Forgetful at times. Easily distracted and organizing. Makes carless mistakes especially at work. Has to write down all tasks to be done. Will lose things . No difficulty waiting turns. Will interrupts others. Has been fidgeting at times. Will leave seat. Will talk excessively. Always on the go .Has never been diagnosed with ADHD. Symptoms more noticeable since went back to school Objective Review of Systems Constitutional: Positive for unexpected weight change (39 pound loss). Negative for activity change, appetite change, chills, diaphoresis, fatigue and fever. HENT: Negative for congestion, ear discharge, ear pain, facial swelling, mouth sores, postnasal drip, rhinorrhea, sinus pressure, sinus pain, sore throat, tinnitus, trouble swallowing and voice change. Eyes: Negative for redness and itching. Respiratory: Negative for apnea, cough, choking, chest tightness, shortness of breath, wheezing and stridor. Cardiovascular: Negative for chest pain, palpitations and leg swelling. Gastrointestinal: Positive for nausea. Negative for abdominal distention, abdominal pain, anal bleeding, blood in stool, constipation, diarrhea, rectal pain and vomiting. Endocrine: Negative for cold intolerance, heat intolerance, polydipsia, polyphagia and polyuria. Genitourinary: Negative for difficulty urinating, dysuria, enuresis, frequency and urgency. Musculoskeletal: Negative for arthralgias, back pain and myalgias. Skin: Negative for rash. Allergic/Immunologic: Positive for environmental allergies. Negative for food allergies. Neurological: Positive for dizziness and light-headedness. Negative for tremors, seizures, syncope, facial asymmetry, speech difficulty, weakness, numbness and headaches. Hematological: Negative for adenopathy. Psychiatric/Behavioral: Negative for confusion and dysphoric mood. Psych Review of Symptoms: ADHD: Inattention Symptoms: Avoids activities requiring sustained attention, difficulty sustaining attention, difficulty with follow through, difficulty organizing, easily distracted, forgetfulness, loses/misplaces belongings and makes careless mistakes. Hyperactivity/Impulsivity Symptoms: Answers before the question is finished, fidgeting, interrupts others, leaves seat, high energy level and excessive talking. No problem waiting turn. Depressive Symptoms: No fatigue. Elimination Symptoms: No constipation. Vitals: Blood pressure 120/80, pulse 89, temperature 97 F (36.1 C), temperature source Temporal, resp. rate 12, height 1.676 m (5' 6 ), weight 103.3 kg (227 lb 12.8 oz), last menstrual period 08/16/2023, SpO2 96%. Physical Exam Constitutional: General: She is not in acute distress. Appearance: Normal appearance. She is not ill-appearing, toxic-appearing or diaphoretic. HENT: Head: Normocephalic and atraumatic. Right Ear: Tympanic membrane, ear canal and external ear normal. There is no impacted cerumen. Left Ear: Tympanic membrane, ear canal and external ear normal. There is no impacted cerumen. Nose: Congestion (swollen blue) present. No rhinorrhea. Mouth/Throat: Mouth: Mucous membranes are moist. Pharynx: Oropharynx is clear. No oropharyngeal exudate or posterior oropharyngeal erythema. Eyes: General: No scleral icterus. Right eye: No discharge. Left eye: No discharge. Extraocular Movements: Extraocular movements intact. Conjunctiva/sclera: Conjunctivae normal. Pupils: Pupils are equal, round, and reactive to light. Neck: Thyroid: No thyromegaly. Vascular: No carotid bruit or JVD. Trachea: No tracheal deviation. Cardiovascular: Rate and Rhythm: Normal rate and regular rhythm. Pulses: Normal pulses. Heart sounds: Normal heart sounds. No murmur heard. No friction rub. No gallop. Comments: No jvd, bruit or pedal edema Pulmonary: Effort: Pulmonary effort is normal. No respiratory distress. Breath sounds: Normal breath sounds. No stridor. No wheezing, rhonchi or rales. Chest: Chest wall: No tenderness. Abdominal: General: Abdomen is flat. Bowel sounds are normal. There is no distension. Palpations: Abdomen is soft. There is no mass. Tenderness: There is no abdominal tenderness. There is no right CVA tenderness, left CVA tenderness, guarding or rebound. Hernia: No hernia is present. Musculoskeletal: Cervical back: Normal range of motion and neck supple. No rigidity or tenderness. No muscular tenderness. Right lower leg: No edema. Left lower leg: No edema. Lymphadenopathy: Head: Right side of head: No submental, submandibular, tonsillar, preauricular, posterior auricular or occipital adenopathy. Left side of head: No submental, submandibular, tonsillar, preauricular, posterior auricular or occipital adenopathy. Cervical: No cervical adenopathy. Neurological: Mental Status: She is alert and oriented to person, place, and time. Psychiatric: Mood and Affect: Mood and affect normal. Speech: Speech normal. Behavior: Behavior is hyperactive. Thought Content: Thought content normal. Cognition and Memory: Cognition normal. Neurological Exam Mental Status Alert. Oriented to person, place, and time. Speech is normal. Cranial Nerves CN III, IV, : Extraocular movements intact bilaterally. Pupils equal round and reactive to light bilaterally. Assessment and Plan Depression with anxiety. Well controlled. No change in medication. Continue with current regiment. Recheck in 6 months ADHD by history and exam. Will start on strattera 25 mg one pill a day. If have any abdominal discomfort, nausea, loss of appetite, feeling tire, mood swings and urinary symptoms. Call with update in one month. If helping but not completely controlling symptoms, then will increase medication documented in this encounter [facility] 09-09-2023 Instructions Nichole Bartholomew MD - 09/09/2023 12:30 PM EDT Depression with anxiety. Well controlled. No change in medication. Continue with current regiment. Recheck in 6 months ADHD by history and exam. Will start on strattera 25 mg one pill a day. If have any abdominal discomfort, nausea, loss of appetite, feeling tire, mood swings and urinary symptoms. Call with update in one month. If helping but not completely controlling symptoms, then will increase medication The following attachments cannot be sent through [facility] Everywhere.atomoxetine (Malaysian)documented in this encounter [facility] 02-14-2023 History of Present illness Narrative Nurse Note: Review of Systems Constitutional: Negative for chills, fatigue and fever. HENT: Negative for congestion, ear pain, nosebleeds, postnasal drip, rhinorrhea, sinus pressure, sinus pain, sneezing and sore throat. Eyes: Negative for pain, discharge, redness and itching. Respiratory: Negative for cough, chest tightness, shortness of breath and wheezing. Cardiovascular: Negative for chest pain, palpitations and leg swelling. Gastrointestinal: Negative for abdominal pain, constipation, diarrhea, nausea and vomiting. Genitourinary: Negative for dysuria, frequency, hematuria and urgency. Musculoskeletal: Negative for back pain and neck pain. Skin: Negative for rash. Neurological: Negative for dizziness, light-headedness and headaches. Psychiatric/Behavioral: Negative for sleep disturbance. The patient is not nervous/anxious. Physical Exam History of Present Illness 22 year old white female with past medical history of fatigue, vitamin D deficiency, morbid obesity, seasonal affective disorder, chronic back pain,and possible history of PCOD presenting depression with anxiety Depression with anxiety: Present since 2016 treated initially with wellbutrin 150 mg intermittent which was only partially effective despite taking it for 5 months. . Patient does not drink alcohol. Patient was placed on effexor xr 75 mg a day on 05/14/22. Patient currently denies any anxiety at this time or feeling of being overwhelmed with anxiety. Has been taking hydroxyzine once every two weeks. Sleep has improved significantly. Patient able to relax daily and has not feeling of being overwhelemed with anxiety. No feeling of doom. Patient denies any depression or decreased interest in favorite activities. Has been with friends and more active. Patient stated fatigue has improved. Patient denies any thoughts of suicide Has good concentration. patient currently walking More often. Patient currently single with no children. No gun in house. 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 Watching diet. Patient taking mounjaro 0.5 mg once a week Review of Systems Constitutional: Positive for unexpected weight change (11 pound loss). Negative for activity change, appetite change, chills, diaphoresis, fatigue and fever. HENT: Negative for congestion, ear discharge, ear pain, facial swelling, mouth sores, postnasal drip, rhinorrhea, sinus pressure, sinus pain, sore throat, tinnitus, trouble swallowing and voice change. Eyes: Negative for redness and itching. Respiratory: Negative for apnea, cough, choking, chest tightness, shortness of breath, wheezing and stridor. Cardiovascular: Negative for chest pain, palpitations and leg swelling. Gastrointestinal: Negative for abdominal distention, abdominal pain, anal bleeding, blood in stool, constipation, diarrhea, nausea, rectal pain and vomiting. Endocrine: Negative for cold intolerance, heat intolerance, polydipsia, polyphagia and polyuria. Genitourinary: Negative for difficulty urinating, dysuria, enuresis, frequency and urgency. Musculoskeletal: Negative for arthralgias, back pain and myalgias. Skin: Negative for rash. Allergic/Immunologic: Negative for food allergies. Neurological: Negative for dizziness, tremors, seizures, syncope, facial asymmetry, speech difficulty, weakness, light-headedness, numbness and headaches. Hematological: Negative for adenopathy. Psychiatric/Behavioral: Negative for confusion and dysphoric mood. Vitals: Blood pressure 108/76, pulse 106, temperature 98 F (36.7 C), temperature source Oral, resp. rate 16, height 1.676 m (5' 6 ), weight 121 kg (266 lb 12.8 oz), last menstrual period 01/21/2023, SpO2 96 %. Physical Exam Constitutional: General: She is not in acute distress. Appearance: Normal appearance. She is not ill-appearing, toxic-appearing or diaphoretic. HENT: Head: Normocephalic and atraumatic. Right Ear: Tympanic membrane, ear canal and external ear normal. There is no impacted cerumen. Left Ear: Tympanic membrane, ear canal and external ear normal. There is no impacted cerumen. Nose: Congestion present. No rhinorrhea. Mouth/Throat: Mouth: Mucous membranes are moist. Pharynx: Oropharynx is clear. No oropharyngeal exudate or posterior oropharyngeal erythema. Eyes: General: No scleral icterus. Right eye: No discharge. Left eye: No discharge. Extraocular Movements: Extraocular movements intact. Conjunctiva/sclera: Conjunctivae normal. Pupils: Pupils are equal, round, and reactive to light. Neck: Thyroid: No thyromegaly. Vascular: No carotid bruit or JVD. Trachea: No tracheal deviation. Cardiovascular: Rate and Rhythm: Normal rate and regular rhythm. Pulses: Normal pulses. Heart sounds: Normal heart sounds. No murmur heard. No friction rub. No gallop. Comments: No jvd, bruit or pedal edema Pulmonary: Effort: Pulmonary effort is normal. No respiratory distress. Breath sounds: Normal breath sounds. No stridor. No wheezing, rhonchi or rales. Chest: Chest wall: No tenderness. Abdominal: General: Abdomen is flat. Bowel sounds are normal. There is no distension. Palpations: Abdomen is soft. There is no mass. Tenderness: There is no abdominal tenderness. There is no right CVA tenderness, left CVA tenderness, guarding or rebound. Hernia: No hernia is present. Musculoskeletal: Cervical back: Normal range of motion and neck supple. No rigidity or tenderness. No muscular tenderness. Right lower leg: No edema. Left lower leg: No edema. Lymphadenopathy: Head: Right side of head: No submental, submandibular, tonsillar, preauricular, posterior auricular or occipital adenopathy. Left side of head: No submental, submandibular, tonsillar, preauricular, posterior auricular or occipital adenopathy. Cervical: No cervical adenopathy. Neurological: General: No focal deficit present. Mental Status: She is alert and oriented to person, place, and time. Psychiatric: Attention and Perception: Attention and perception normal. Mood and Affect: Mood and affect normal. Speech: Speech normal. Behavior: Behavior normal. Thought Content: Thought content normal. Judgment: Judgment normal. Neurological Exam Mental Status Alert. Oriented to person, place, and time. Speech is normal. Cranial Nerves CN III, IV, : Extraocular movements intact bilaterally. Pupils equal round and reactive to light bilaterally. Assessment and Plan 1. Depression with anxiety: well controlled.continue with effexor xr 75 mg a day. Recheck in 6 to 7 months documented in this encounter [facility] 02-14-2023 Instructions Nichole Bartholomew MD - 02/14/2023 9:30 AM EDT Depression with anxiety: well controlled.continue with effexor xr 75 mg a day. Recheck in 6 to 7months documented in this encounter [facility] 08-06-2022 History of Present illness Narrative Nurse Note: Review of Systems Constitutional: Negative for chills, fatigue and fever. HENT: Positive for congestion. Negative for ear pain, nosebleeds, postnasal drip, rhinorrhea, sinus pressure, sinus pain, sneezing and sore throat. Eyes: Negative for pain, discharge, redness and itching. Respiratory: Negative for cough, chest tightness, shortness of breath and wheezing. Cardiovascular: Negative for chest pain, palpitations and leg swelling. Gastrointestinal: Negative for abdominal pain, constipation, diarrhea, nausea and vomiting. Genitourinary: Negative for dysuria, frequency, hematuria, urgency and vaginal discharge. Was treated for chlamydia with Doxycycline in June for 7 days. Musculoskeletal: Negative for back pain and neck pain. Skin: Negative for rash. Neurological: Negative for dizziness, light-headedness and headaches. Psychiatric/Behavioral: Negative for sleep disturbance. Physical Exam History of Present Illness 21 year old white female with past medical history of fatigue, vitamin D deficiency, morbid obesity, seasonal affective disorder, chronic back pain,and possible history of PCOD presenting depression with anxiety, and insomnia Depression: Present since 2017 treated initially with wellbutrin 150 mg intermittent which was only partially effective despite taking it for 5 months. . Patient does not drink alcohol. Patient was placed on effexor xr 75 mg a day on 05/14/22. Patient currently denies any anxiety at this time or feeling of being overwhelmed with anxiety. Has been taking hydroxyzine twice a week As needed. per patient she is feeling asleep naturally. Patient able to relax daily and has not feeling of being overwhelemed with anxiety. No feeling of doom. Patient denies any depression or decreased interest in favorite activities. Has been with friends more often. Patient stated fatigue has improved. Patient denies any thoughts of suicide with improvement of appetite. Has good concentration. patient currently walking More often. Patient currently single with no children. No gun in house. 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 Review of Systems Constitutional: Positive for unexpected weight change (3 pound loss. patient stated has joined [employer] and has been exercising more recently. will be tracking her food intake at this time). Negative for activity change, appetite change, chills, diaphoresis, fatigue and fever. HENT: Positive for congestion. Negative for ear discharge, ear pain, facial swelling, mouth sores, postnasal drip, rhinorrhea, sinus pressure, sinus pain, sore throat, tinnitus, trouble swallowing and voice change. Eyes: Negative for redness and itching. Respiratory: Negative for apnea, cough, choking, chest tightness, shortness of breath, wheezing and stridor. Cardiovascular: Negative for chest pain, palpitations and leg swelling. Gastrointestinal: Negative for abdominal distention, abdominal pain, anal bleeding, blood in stool, constipation, diarrhea, nausea, rectal pain and vomiting. Endocrine: Negative for cold intolerance, heat intolerance, polydipsia, polyphagia and polyuria. Genitourinary: Negative for difficulty urinating, dysuria, enuresis, frequency and urgency. Musculoskeletal: Negative for arthralgias, back pain and myalgias. Skin: Negative for rash. Allergic/Immunologic: Negative for food allergies. Neurological: Negative for dizziness, tremors, seizures, syncope, facial asymmetry, speech difficulty, weakness, light-headedness, numbness and headaches. Hematological: Negative for adenopathy. Psychiatric/Behavioral: Negative for confusion and dysphoric mood. Vitals: Blood pressure 118/78, pulse 97, temperature 97.4 F (36.3 C), temperature source Oral, resp. rate 18, height 1.676 m (5' 6 ), weight 124.3 kg (274 lb), SpO2 97 %. Physical Exam Constitutional: General: She is not in acute distress. Appearance: Normal appearance. She is not ill-appearing, toxic-appearing or diaphoretic. HENT: Head: Normocephalic and atraumatic. Right Ear: Tympanic membrane, ear canal and external ear normal. There is no impacted cerumen. Left Ear: Tympanic membrane, ear canal and external ear normal. There is no impacted cerumen. Nose: Congestion present. No rhinorrhea. Mouth/Throat: Mouth: Mucous membranes are moist. Pharynx: Oropharynx is clear. No oropharyngeal exudate or posterior oropharyngeal erythema. Eyes: General: No scleral icterus. Right eye: No discharge. Left eye: No discharge. Extraocular Movements: Extraocular movements intact. Conjunctiva/sclera: Conjunctivae normal. Pupils: Pupils are equal, round, and reactive to light. Neck: Thyroid: No thyromegaly. Vascular: No carotid bruit or JVD. Trachea: No tracheal deviation. Cardiovascular: Rate and Rhythm: Normal rate and regular rhythm. Pulses: Normal pulses. Heart sounds: Normal heart sounds. No murmur heard. No friction rub. No gallop. Comments: No jvd, bruit or pedal edema Pulmonary: Effort: Pulmonary effort is normal. No respiratory distress. Breath sounds: Normal breath sounds. No stridor. No wheezing, rhonchi or rales. Chest: Chest wall: No tenderness. Abdominal: General: Abdomen is flat. Bowel sounds are normal. There is no distension. Palpations: Abdomen is soft. There is no mass. Tenderness: There is no abdominal tenderness. There is no right CVA tenderness, left CVA tenderness, guarding or rebound. Hernia: No hernia is present. Musculoskeletal: Cervical back: Normal range of motion and neck supple. No rigidity or tenderness. No muscular tenderness. Right lower leg: No edema. Left lower leg: No edema. Lymphadenopathy: Head: Right side of head: No submental, submandibular, tonsillar, preauricular, posterior auricular or occipital adenopathy. Left side of head: No submental, submandibular, tonsillar, preauricular, posterior auricular or occipital adenopathy. Cervical: No cervical adenopathy. Neurological: Mental Status: She is alert and oriented to person, place, and time. Psychiatric: Mood and Affect: Mood normal. Behavior: Behavior normal. Neurological Exam Mental Status Alert. Oriented to person, place, and time. Cranial Nerves CN III, IV, : Extraocular movements intact bilaterally. Pupils equal round and reactive to light bilaterally. Assessment and Plan 1. Depression with anxiety: well controlled.continue with effexor xr 75 mg a day. Recheck in 6 months 2. Morbid obesity. Continue with weight loss regiment. If unable to lose weight, let me know documented in this encounter [facility] 08-06-2022 Instructions Nichole Bartholomew MD - 08/06/2022 9:00 AM EST Depression with anxiety: well controlled.continue with effexor xr 75 mg a day. Recheck in 6 months 2. Morbid obesity. Continue with weight loss regiment. If unable to lose weight, let me know documented in this encounter [facility] 06-25-2022 History of Present illness Narrative [employer] Outpatient Visit - New Patient Exam Subjective: Javon Montoya is a 21 y.o. female presenting as a new patient to establish [facility] Previously followed with [facility] in [place], [place]. Last exam 02/2021. Previously lived in [place], [place] and saw a [facility] for weight management, was told she may have PCOS and recommended that she follow-up with an metal gauge maker. When had her last annual, states was just told to go on control pill, but did not do well with OCPs. Purchased a dietary supplement recommended by a PCOS group, ad was considering starting. Reports having regular menstrual cycles, every 28-32 days. Usually bleeding lasts about 5 days. First three days with pretty bad cramping, uses ibuprofen, which helps. Not debilitating. Bleeding pretty heavy, uses super plus / ultra tampon every 1.5-2 hours the first 2 days. Last 6 months or so gets RLQ pain, 2 episodes, not while one period. Gone within 24 hours. When had the pain was severe, constant achy/pain, could not sit/stand all of the way. Has never had pelvic US. Reports bad hormonal acne in the chin/neck area. No excess hair growth, has some occasional light hear (blonde), on neck/chin, but not excessive. Does not shave or pluck regularly. Gynecologic History Patient's last menstrual period was 06/02/2022 (exact date). Social History Substance and Sexual Activity Sexual Activity Not Currently Partners: Male control/protection: Condom Last Pap: 02/2021 normal, 12/2019 normal, 08/2018 normal, 01/2017 unsatisfactory Abnormal paps: None Gardasil: Completed 08/09 History STIs: None Last Mammogram: N/a Last Dexa Scan:not indicated Results: N/A Preconception Discussion-: Not applicable Colon Cancer Screening-: Recommended age 45 Obstetrical History OB History Para Term AB Living 0 0 0 0 0 0 SAB IAB Ectopic Molar Multiple Live Births 0 0 0 0 0 0 Patient's medications, allergies, past medical, surgical, social and family histories were reviewed and updated as appropriate. Tobacco Allergies Meds Problems Med Hx Surg Hx Fam Hx Soc Hx Objective: BP 122/78 (BP Location: Left arm, BP Position: Sitting) Ht 5' 6 (1.676 m) Wt 277 lb (125.6 kg) BMI 44.71 kg/m Smoking Status Never Body mass index is 44.71 kg/m . General: alert, well appearing, and in no distress. Head: Normocephalic, without obvious abnormality Oropharynx: Normal findings Neck: thyroid is normal in size without nodules or tenderness. Back: negative Lungs: deferred Heart: deferred Breast: Breast exam: breasts appear normal, no suspicious masses, no skin or nipple changes or axillary nodes. Abdomen: soft, nontender, nondistended, no masses or organomegaly Pelvic Exam: Casino Floorperson present Yes Vulva: normal appearing vulva with no masses, tenderness or lesions Vagina: normal appearing vagina with normal color and discharge, no lesions Cervix: normal appearing cervix without discharge or lesions Uterus: uterus is normal size, shape, consistency and nontender Adnexa: normal adnexa in size, nontender and no masses Pelvic Support: normal Extremities: peripheral pulses normal, no pedal edema, no clubbing or cyanosis Pulse: Not performed Skin: Skin color, texture, turgor normal. No rashes, or lesions Neurologic: alert, oriented, normal speech, no focal findings or movement disorder noted Labs: Lab Results Component Value Date WBC 8.0 06/03/2022 HGB 14.4 06/03/2022 HCT 42.6 06/03/2022 PLATELET 295 06/03/2022 MCV 81.6 06/03/2022 Lab Results Component Value Date TSH 1.036 06/03/2022 TSHRFT4 1.300 02/07/2022 No results found for: HGBA1C Lab Results Component Value Date TESTOSTERONE 14 06/03/2022 TESTOSTERONE, FREE 1.1 Comment: Reference range: 0.0 to 4.2 Unit: pg/mL . Assessment: Javon was seen today for Annual Exam and Establish Care (pcos) Impression: 1. Encounter for gynecological examination without abnormal finding 2. Screening for STDs (sexually transmitted diseases) 3. Chlamydia infection 4. Acne, unspecified acne type 5. Encounter for other general counseling or advice on contraception Plan: Javon was seen today for annual exam and establish care. Diagnoses and all orders for this visit: Encounter for gynecological examination without abnormal finding Screening for STDs (sexually transmitted diseases) - HIV 1 AND 2 ANTIBODIES; Future - HEPATITIS B SURFACE ANTIGEN; Future - HEPATITIS C ANTIBODY; Future - SYPHILIS AB W/REFLEX RPR; Future - VAGINAL INFECTION PANEL Chlamydia infection - doxycycline hyclate 100 MG capsule; Take 1 capsule by mouth 2 times daily for 7 days. Acne, unspecified acne type Encounter for other general counseling or advice on contraception Routine [facility] Paps UTD. Reviewed that despite her previous annual testing, ASCCP guidelines are q3 year cytology at her age. Not indicated again until 02/2024. S/p Gardasil Reviewed breast and CC screening Not currently sexually active, uses condoms, reviewed risk, CTR pamphlets provided, to contact if desires in future STI screening CT infection GCT +for chlamydia. Rx doxycycline sent. Pt without current sexual partner, reviewed partner testing/treatment if in contact (Skeed message sent with instructions) Acne, ?PCOS Reports told she may have PCOS by many providers. Reviewed [place] diagnostic criteria for PCOS (Requires 2/3): - Irregular menses with oligomenorrhea/anovulation - Clinical or laboratory evidence of hyperandrogenism - Polycystic ovaries on imaging Reviewed that while patient with acne of face/chin area (possibly hormonal), no excess hair growth and normal androgen testing in past. No prior imaging. No oligomenorrhea/irregular menses. I do not feel she meets any criteria for PCOS. While acne may be hormonally related, not PCOS picture. Agree with spironolactone, as rx'ed by her PCP, given improvement with treatment. Reviewed OCP may be helpful as well, but declines at this time. Requested Prescriptions Signed Prescriptions Disp Refills doxycycline hyclate 100 MG capsule 14 capsule 0 Sig: Take 1 capsule by mouth 2 times daily for 7 days. Follow Up: Return in about 1 year (around 06/25/2023) for Annual. documented in this encounter [facility] 06-04-2022 History of Present illness Narrative Nurse Note: Review of Systems Constitutional: Negative for chills, fatigue and fever. HENT: Negative for congestion, ear pain, nosebleeds, postnasal drip, rhinorrhea, sinus pressure, sinus pain, sneezing and sore throat. Eyes: Negative for pain, discharge, redness and itching. Respiratory: Negative for cough, chest tightness, shortness of breath and wheezing. Cardiovascular: Negative for chest pain, palpitations and leg swelling. Gastrointestinal: Negative for abdominal pain, constipation, diarrhea, nausea and vomiting. Genitourinary: Negative for dysuria, frequency, hematuria and urgency. Musculoskeletal: Negative for back pain and neck pain. Skin: Negative for rash. Neurological: Negative for dizziness, light-headedness and headaches. Psychiatric/Behavioral: Negative for sleep disturbance. Physical Exam History of Present Illness 21 year old white female with past medical history of fatigue, vitamin D deficiency, morbid obesity, seasonal affective disorder, chronic back pain,and possible history of PCOD presenting depression with anxiety, and insomnia Depression: Present since 2017 treated with wellbutrin 150 mg intermittent which was only partially effective despite taking it for 5 months. . Patient does not drink alcohol. Patient was placed on effexor xr 75 mg a day on 05/14/22. Patient currently denies any anxiety at this time or feeling of being overwhelmed with anxiety. Has been taking hydroxyzine at night and per patient she is feeling asleep naturally. Patient able to relax daily and has not feeling of being overwhelemed with anxiety. No feeling of doom. Patient denies any depression or decreased interest in favorite activities. Has been with friends more often. Patient stated feels fatigue less at this time. Patient denies any thoughts of suicide with improvement of appetite. Has good concentration. patient currently walking More often. Patient currently single with no children. No gun in house. 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 Patient sleeping better with hydroxyzine and now feels more rested Yesterday: Vitamin B12 483 and folate of 10.5 . TSH 1.036. total cholesterol 170, triglyceride fo 83, HDL of 45, LDL 108. Glucose 90. Creatinine of 0.87 with GFR 86. Normal liver function. Normal cbc Review of Systems Constitutional: Positive for unexpected weight change (3 pound loss). Negative for activity change, appetite change, chills, diaphoresis, fatigue and fever. HENT: Negative for congestion, ear discharge, ear pain, facial swelling, mouth sores, postnasal drip, rhinorrhea, sinus pressure, sinus pain, sore throat, tinnitus, trouble swallowing and voice change. Eyes: Negative for redness and itching. Respiratory: Negative for apnea, cough, choking, chest tightness, shortness of breath, wheezing and stridor. Cardiovascular: Negative for chest pain, palpitations and leg swelling. Gastrointestinal: Negative for abdominal distention, abdominal pain, anal bleeding, blood in stool, constipation, diarrhea, nausea, rectal pain and vomiting. Endocrine: Negative for cold intolerance, heat intolerance, polydipsia, polyphagia and polyuria. Genitourinary: Negative for difficulty urinating, dysuria, enuresis, frequency and urgency. Musculoskeletal: Positive for back pain (per patient back pain is mild and manageable). Negative for arthralgias and myalgias. Skin: Negative for rash. Allergic/Immunologic: Negative for food allergies. Neurological: Negative for dizziness, tremors, seizures, syncope, facial asymmetry, speech difficulty, weakness, light-headedness, numbness and headaches. Hematological: Negative for adenopathy. Psychiatric/Behavioral: Negative for confusion and dysphoric mood. Vitals: Blood pressure 130/80, pulse 109, temperature 98.5 F (36.9 C), temperature source Oral, resp. rate 16, height 1.676 m (5' 6 ), weight 124.4 kg (274 lb 3.2 oz), SpO2 94 %. Physical Exam Constitutional: General: She is not in acute distress. Appearance: Normal appearance. She is not ill-appearing, toxic-appearing or diaphoretic. HENT: Head: Normocephalic and atraumatic. Right Ear: Tympanic membrane, ear canal and external ear normal. There is no impacted cerumen. Left Ear: Tympanic membrane, ear canal and external ear normal. There is no impacted cerumen. Nose: Congestion present. No rhinorrhea. Mouth/Throat: Mouth: Mucous membranes are moist. Pharynx: Oropharynx is clear. No oropharyngeal exudate or posterior oropharyngeal erythema. Eyes: General: No scleral icterus. Right eye: No discharge. Left eye: No discharge. Extraocular Movements: Extraocular movements intact. Conjunctiva/sclera: Conjunctivae normal. Pupils: Pupils are equal, round, and reactive to light. Neck: Thyroid: No thyromegaly. Vascular: No carotid bruit or JVD. Trachea: No tracheal deviation. Cardiovascular: Rate and Rhythm: Normal rate and regular rhythm. Pulses: Normal pulses. Heart sounds: Normal heart sounds. No murmur heard. No friction rub. No gallop. Comments: No jvd, bruit or pedal edema Pulmonary: Effort: Pulmonary effort is normal. No respiratory distress. Breath sounds: Normal breath sounds. No stridor. No wheezing, rhonchi or rales. Chest: Chest wall: No tenderness. Abdominal: General: Abdomen is flat. Bowel sounds are normal. There is no distension. Palpations: Abdomen is soft. There is no mass. Tenderness: There is no abdominal tenderness. There is no right CVA tenderness, left CVA tenderness, guarding or rebound. Hernia: No hernia is present. Musculoskeletal: Cervical back: Normal range of motion and neck supple. No rigidity or tenderness. No muscular tenderness. Right lower leg: No edema. Left lower leg: No edema. Lymphadenopathy: Head: Right side of head: No submental, submandibular, tonsillar, preauricular, posterior auricular or occipital adenopathy. Left side of head: No submental, submandibular, tonsillar, preauricular, posterior auricular or occipital adenopathy. Cervical: No cervical adenopathy. Neurological: Mental Status: She is alert and oriented to person, place, and time. Psychiatric: Attention and Perception: Attention and perception normal. Mood and Affect: Mood normal. Speech: Speech normal. Behavior: Behavior normal. Thought Content: Thought content normal. Cognition and Memory: Cognition normal. Neurological Exam Mental Status Alert. Oriented to person, place, and time. Speech is normal. Cranial Nerves CN III, IV, : Extraocular movements intact bilaterally. Pupils equal round and reactive to light bilaterally. Assessment and Plan 1. Depression with anxiety: well controlled.continue with effexor xr 75 mg a day. Recheck in 2 months. Continue with exercise and good sleep hygiene. Call if develop thoughts of suicide. 2. Morbid obesity: lost 3 pounds. Continue with exercise and diet management. Recheck weight in 2 months. documented in this encounter [facility] 06-04-2022 Instructions Nichole Bartholomew MD - 06/04/2022 3:00 PM EST Depression with anxiety: well controlled.continue with effexor xr 75 mg a day. Recheck in 2 months. Continue with exercise and good sleep hygiene 2. Morbid obesity: lost 3 pounds. Continue with exercise and diet management. Recheck weight in 2 months. documented in this encounter [facility] 05-07-2022 History of Present illness Narrative Nurse Note: Review of Systems Constitutional: Negative for chills, fatigue and fever. HENT: Negative for congestion, ear pain, nosebleeds, postnasal drip, rhinorrhea, sinus pressure, sinus pain, sneezing and sore throat. Eyes: Negative for pain, discharge, redness and itching. Respiratory: Negative for cough, chest tightness, shortness of breath and wheezing. Cardiovascular: Negative for chest pain, palpitations and leg swelling. Gastrointestinal: Positive for diarrhea. Negative for abdominal pain, constipation, nausea and vomiting. Genitourinary: Negative for dysuria, frequency, hematuria and urgency. Musculoskeletal: Positive for back pain. Negative for neck pain. Back pain since breast reduction Skin: Negative for rash. Neurological: Positive for dizziness and light-headedness. Negative for headaches. Psychiatric/Behavioral: Positive for sleep disturbance. Physical Exam History of Present Illness 21 year old white female with past medical history of fatigue, vitamin D deficiency, morbid obesity, seasonal affective disorder, chronic back pain,and possible history of PCOD presenting with morbid obesity, depression and insomnia Morbid obesity: Patient 's weight in high school was 165 to 170. Patient started to gain weight in 2018 and went from 170 pounds to 200 pounds. Patient 's weight dropped from 250's to 230 in 2020 with adipex. Patient weight gained worsened after stopping depo shot in 2017. Patient currently not getting any exercise with walking one to two times a week. Patient has not been watching diet. Stated will eat one meal a day and will have rice/vegetable/meats. Patient was seen weight loss physician in December 2020 and diagnosed with PCOD. Was placed on adipex and weekly lipo b12 shots. Patient stated menses are heavy and irregular. Menses occur once a month and can be one to two weeks late in last year. Has noted acne and hair on chin. Was placed on spirolactone for hitrusim by healthcare manager for last year. Patient stated in last year having hair loss, fatigue, diarrhea (two to three times a week Will have two to three loose bowel movements on a day), heat intolerance along with cold intolerance, and occasional numbness in hands. History of blood in stool one year ago which resolved 9 months ago. Patient denies any fever, chills, rash, nausea, vomiting, constipation, coughing, wheezing, headache, dysuria, vaginal discharge, amenorrhea, leg swelling, palpations, polydipsia, polyphagia, shortness of breath, or sinus pain Has dizziness with getting up quickly. Does not drink much water. 02/07/22. Glucose 96, creatinine 1.00 with GFR 73, sodium 137 and potassium 4.3. vitamin D 35, TSH 1.3. white blood cell of 10.6, hemoglobin 14.2, hematocrit 40. And platelet count of 322. Depression: Present since 2017 treated with wellbutrin 150 mg intermittent. Per patient wellbutrin may or may not have helped . Per patient took wellbutrin twice with first time for 5 months and second time for 3 months. Patient does not drink alcohol. Patient has depression daily along with decreased in favorite activities, poor sleep, fatigue, poor self esteem, and poor concentration. occasionl has thoughts of not being alive but no plan. Patient has no history of rob. Family history of mom with depression . Dad 's family with anxiety symptoms. Patient feels worse with not being active or acomplishing goals. Feels better with walking. Patient currently single with no children. No gun in house. 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 Worrying too much about different things half the days. Able to sit down and relax. No mood swings. Has no feeling something awful will happen BART-7: 4 phq-9: 19 Insomnia; Patient has had difficulty with sleep for last 4 years. Patient stated unable to relax at night and has repetative thoughts. Will fall asleep around 1 to 2 am and awaken at 6 :30 am. Has fatigue most of the day. Patient does not snore or stop breathing. Does not drink caffine or alcohol. 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 Does not smoke or drink Family history: maternal grandmother with breast cancer, mom with non hodgkin lymphoma and basal cell cancer on nose Hypertension in both parents. Mom with chron's disease. Review of Systems Constitutional: Positive for fatigue and unexpected weight change (12 pound gain since 02/28. has gained 42 pounds since 04/05/21). Negative for activity change, appetite change, chills, diaphoresis and fever. HENT: Negative for congestion, ear discharge, ear pain, facial swelling, mouth sores, postnasal drip, rhinorrhea, sinus pressure, sinus pain, sore throat, tinnitus, trouble swallowing and voice change. Eyes: Negative for redness and itching. Respiratory: Negative for apnea, cough, choking, chest tightness, shortness of breath, wheezing and stridor. Cardiovascular: Negative for chest pain, palpitations and leg swelling. Gastrointestinal: Positive for diarrhea. Negative for abdominal distention, abdominal pain, anal bleeding, blood in stool, constipation, nausea, rectal pain and vomiting. Endocrine: Positive for cold intolerance and heat intolerance. Negative for polydipsia, polyphagia and polyuria. Genitourinary: Negative for difficulty urinating, dysuria, enuresis, frequency and urgency. Musculoskeletal: Positive for back pain. Negative for arthralgias and myalgias. Skin: Negative for rash. Allergic/Immunologic: Negative for food allergies. Neurological: Positive for dizziness and light-headedness. Negative for tremors, seizures, syncope, facial asymmetry, speech difficulty, weakness, numbness and headaches. Hematological: Negative for adenopathy. Psychiatric/Behavioral: Positive for dysphoric mood and sleep disturbance. Negative for confusion. Vitals: Blood pressure 122/72, pulse 106, temperature 98.6 F (37 C), temperature source Oral, resp. rate 18, height 1.676 m (5' 6 ), weight 125.9 kg (277 lb 9.6 oz), SpO2 98 %. Physical Exam Constitutional: General: She is not in acute distress. Appearance: Normal appearance. She is not ill-appearing, toxic-appearing or diaphoretic. HENT: Head: Normocephalic and atraumatic. Right Ear: Tympanic membrane, ear canal and external ear normal. There is no impacted cerumen. Left Ear: Tympanic membrane, ear canal and external ear normal. There is impacted cerumen. Nose: Congestion (swollen blue /red nasal mucosa with clear discharge) present. No rhinorrhea. Mouth/Throat: Mouth: Mucous membranes are moist. Pharynx: Oropharynx is clear. No oropharyngeal exudate or posterior oropharyngeal erythema. Eyes: General: No scleral icterus. Right eye: No discharge. Left eye: No discharge. Extraocular Movements: Extraocular movements intact. Conjunctiva/sclera: Conjunctivae normal. Pupils: Pupils are equal, round, and reactive to light. Neck: Thyroid: No thyromegaly. Vascular: No carotid bruit or JVD. Trachea: No tracheal deviation. Cardiovascular: Rate and Rhythm: Normal rate and regular rhythm. Pulses: Normal pulses. Heart sounds: Normal heart sounds. No murmur heard. No friction rub. No gallop. Comments: No jvd, bruit or pedal edema Pulmonary: Effort: Pulmonary effort is normal. No respiratory distress. Breath sounds: Normal breath sounds. No stridor. No wheezing, rhonchi or rales. Chest: Chest wall: No tenderness. Abdominal: General: Abdomen is flat. Bowel sounds are normal. There is no distension. Palpations: Abdomen is soft. There is no mass. Tenderness: There is no abdominal tenderness. There is no right CVA tenderness, left CVA tenderness, guarding or rebound. Hernia: No hernia is present. Musculoskeletal: Cervical back: Normal range of motion and neck supple. No rigidity or tenderness. No muscular tenderness. Right lower leg: No edema. Left lower leg: No edema. Lymphadenopathy: Head: Right side of head: No submental, submandibular, tonsillar, preauricular, posterior auricular or occipital adenopathy. Left side of head: No submental, submandibular, tonsillar, preauricular, posterior auricular or occipital adenopathy. Cervical: No cervical adenopathy. Skin: Comments: Noted mild hyperpigmentation at base of neck brown velvety in texture Neurological: Mental Status: She is alert and oriented to person, place, and time. Psychiatric: Mood and Affect: Mood normal. Behavior: Behavior normal. Neurological Exam Mental Status Alert. Oriented to person, place, and time. Cranial Nerves CN III, IV, : Extraocular movements intact bilaterally. Pupils equal round and reactive to light bilaterally. Assessment and Plan 1. Morbid obesity with BMI of 44.81. concerned for PCOD along with hypothyroidism. Will check insulin, testosterone, cmp, cbc, tsh, b12 and folic acid. Depending on results, will plan on weight loss regiment. Patient to find out if insurance covers for weight loss medication like saxenda or wegovy. 2. Depression with anxiety. Recommend to start on effexor xr 37.5 mg once a day for 1 week and then increase to 75 mg a week. Recheck in one month. If develop thoughts of suicide especially with plan , let us know armond. Recommend counceling to help with depression 3. Insomnia. Will place on hydroxyzine 25 mg at bedtime to help with sleep.avoid caffine 5 hours before bedtime. No TV or electronics one hour before bedtime. Read at bedtime to fall asleep time in 10:45 am and time out 11:55 am. Total time with patient is 70 minutes documented in this encounter [facility] 05-07-2022 Instructions Nichole Bartholomew MD - 05/07/2022 10:00 AM EST Morbid obesity with BMI of 44.81. concerned for PCOD along with hypothyroidism. Will check insulin, testosterone, cmp, cbc, tsh, b12 and folic acid. Depending on results, will plan on weight loss regiment. Patient to find out if insurance covers for weight loss medication like saxenda or wegovy. 2. Depression with anxiety. Recommend to start on effexor xr 37.5 mg once a day for 1 week and then increase to 75 mg a week. Recheck in one month. If develop thoughts of suicide especially with plan , let us know armond. Recommend counceling to help with depression 3. Insomnia. Will place on hydroxyzine 25 mg at bedtime to help with sleep.avoid caffine 5 hours before bedtime. No TV or electronics one hour before bedtime. Read at bedtime to fall asleep documented in this encounter [facility] 05-07-2022 Procedure note Associated Ord er(s): EAR CERUMEN REMOVAL Post-Procedure Diagnose(s): Right ear impacted cerumen EAR CERUMEN REMOVAL Date/Time: 05/07/2022 10:00 AM Performed by: Nichole Bartholomew MD Authorized by: Nichole Bartholomew MD Procedure: Visualization: otoscopy Impaction noted: yes Location details: Right ear Local anesthetic: None Procedure type: irrigation Patient tolerance: Tolerated well, no immediate complications Removed with irrigation and forcep [facility] 05-07-2022 Procedure note Associated Ord er(s): EAR CERUMEN REMOVAL Post-Procedure Diagnose(s): Right ear impacted cerumen EAR CERUMEN REMOVAL Date/Time: 05/07/2022 10:00 AM Performed by: Nichole Bartholomew MD Authorized by: Nichole Bartholomew MD Procedure: Visualization: otoscopy Impaction noted: yes Location details: Right ear Local anesthetic: None Procedure type: irrigation Patient tolerance: Tolerated well, no immediate complications Removed with irrigation and forcep documented in this encounter [facility] 02-07-2022 History of Present illness Narrative Nurse Note: Review of Systems Constitutional: Positive for unexpected weight change. Negative for appetite change, fatigue and fever. HENT: Negative for congestion, dental problem, hearing loss, nosebleeds, postnasal drip, rhinorrhea, sinus pressure, sinus pain, sore throat, tinnitus and voice change. Eyes: Negative for pain, discharge, redness and visual disturbance. Respiratory: Negative for cough, shortness of breath and wheezing. Cardiovascular: Negative for chest pain and palpitations. Gastrointestinal: Negative for abdominal pain, constipation, diarrhea, nausea and vomiting. Endocrine: Negative for cold intolerance, heat intolerance and polyuria. Genitourinary: Negative for dysuria and enuresis. Musculoskeletal: Negative for arthralgias, back pain, joint swelling, myalgias and neck pain. Skin: Negative for color change and rash. Neurological: Negative for dizziness, tremors, syncope, weakness, numbness and headaches. Hematological: Does not bruise/bleed easily. Psychiatric/Behavioral: Negative for confusion, dysphoric mood, self-injury, sleep disturbance and suicidal ideas. The patient is not nervous/anxious. Nursing Assessment: Physical Exam Attempted blood draw on right AC. No blood obtained. Pt tolerated well. Obtained blood draw RAC 1st attempt butterfly needle. Applied pressure bandage. Chief Complaint Patient presents with Weight Gain Patient would like to discuss going back on adipex. Referral Patient states has PCOS but feels some symptoms are the same as thyroid disease and would like that checked. History of Present Illness Javon Montoya is a 21 y.o. y.o. female who presents today for follow up for obesity and fatigue. She states that she has not changed her diet or activity, but she seems to be gaining weight. She has gained 20 lb weight over the 6 loss over since Apr 2021 She has tried diet alone in the past and has lost <5 lbs over 6 months. She is requesting adipex to help lose weight. She was on this last fall. She also has another cyst on her ovary and might have a dx of PCOS. She does snore. Problems discussed today also include: Patient Active Problem List Diagnosis Seasonal affective disorder Obesity: body mass index of 35.0-39.9 Macromastia Chronic back pain B12 deficiency Past Medical History Includes She has Morbid obesity due to excess calories on her problem list. Reviewed today. Allergies No Known Allergies Family History Family History Problem Relation Age of Onset Cancer Mother lymphoma Other - Specify Mother BCC - SKIN CANCER Breast Cancer Maternal Grandmother dx in her 60s No known problems Maternal Grandfather No known problems Paternal Grandmother No known problems Paternal Grandfather No known problems Father No known problems Brother No known problems Brother Social History Social History Socioeconomic History Marital status: Single Spouse name: Not on file Number of children: Not on file Years of education: Not on file Highest education level: Not on file Occupational History Not on file Tobacco Use Smoking status: Never Smoker Smokeless tobacco: Never Used Vaping Use Vaping Use: Never used Substance and Sexual Activity Alcohol use: No Drug use: No Sexual activity: Not Currently Partners: Male control/protection: Pill Other Topics Concern Service No Blood Transfusions No Caffeine Concern Not Asked Occupational Exposure Not Asked Hobby Hazards Not Asked Sleep Concern Not Asked Stress Concern Not Asked Weight Concern Not Asked Special Diet Not Asked Back Care Not Asked Exercise Not Asked Bike Helmet Not Asked Seat Belt Yes Domestic Violence No Social History Narrative Not on file Social Determinants of Health Financial Resource Strain: Not on file Food Insecurity: Not on file Transportation Needs: Not on file Physical Activity: Not on file Stress: Not on file Social Connections: Not on file Intimate Partner Violence: Not on file Housing Stability: Not on file Review of Systems Constitutional: Positive for unexpected weight change. Negative for appetite change, fatigue and fever. HENT: Negative for congestion, dental problem, hearing loss, nosebleeds, postnasal drip, rhinorrhea, sinus pressure, sinus pain, sore throat, tinnitus and voice change. Eyes: Negative for pain, discharge, redness and visual disturbance. Respiratory: Negative for cough, shortness of breath and wheezing. Cardiovascular: Negative for chest pain and palpitations. Gastrointestinal: Negative for abdominal pain, constipation, diarrhea, nausea and vomiting. Endocrine: Negative for cold intolerance, heat intolerance and polyuria. Genitourinary: Negative for dysuria and enuresis. Musculoskeletal: Negative for arthralgias, back pain, joint swelling, myalgias and neck pain. Skin: Negative for color change and rash. Neurological: Negative for dizziness, tremors, syncope, weakness, numbness and headaches. Hematological: Does not bruise/bleed easily. Psychiatric/Behavioral: Negative for confusion, dysphoric mood, self-injury, sleep disturbance and suicidal ideas. The patient is not nervous/anxious. Pt reports moderate anorexia with the medications. Physical Exam Blood pressure 110/78, pulse 100, temperature 98 F (36.7 C), temperature source Temporal, resp. rate 16, height 1.676 m (5' 6 ), weight 120.2 kg (265 lb), SpO2 96 %. Body mass index is 42.77 kg/m . Constitutional: She appears well Head: Normocephalic and atraumatic. Eyes: Reactive pupils, normal eye movements. Cardiovascular: No carotid bruits. Heart with regular rhythm, normal heart sounds. Pulmonary/Chest: Effort normal, breath sounds normal. Musculoskeletal/Neurologic: Gait & balance normal on observation within exam room. Psychiatric: Mood and affect normal. Judgment normal. Ordered thought content. Assessment/Plan 1. Chronic fatigue - CBC, EDIF, PLATELET; Future - BASIC METABOLIC PANEL; Future - TSH W/FT4 REFLEX; Future - VITAMIN D (25-HYDROXY,TOTAL); Future 2. Vitamin D deficiency - VITAMIN D (25-HYDROXY,TOTAL); Future 3. Obesity: body mass index of 35.0-39.9 The risk and benefits of therapy were discussed with the patient. Alarm symptoms were discussed, along with reasons for contacting the office or going to the ER. Questions were answered for the patient. documented in this encounter [facility] 10-25-2020 History of Present illness Narrative Subjective: Javon Montoya is an 19 y.o. female who presents for evaluation for Breast reduction consult. Pt c/o back and neck pain and headaches. Pt states that she has seen a chiropractor and massage therapist, takes NSAIDs and uses ice/heat to try to alleviate pain. Pt states that she wears a 42H bra. She will be moving back to [place] in the near future and would like to proceed with surgery if possible in January. No Known Allergies Current Outpatient Medications Medication Sig Dispense Refill Fexofenadine-Pseudoephedrine (RODRIGUEZ-D 24 HOUR PO) Take by mouth daily as needed. buPROPion 150 MG tablet XL Take 1 tablet by mouth daily every morning. (Patient not taking: Reported on 10/25/2020) 30 tablet 5 No current facility-administered medications for this visit. Past Medical History: Diagnosis Date Allergic rhinitis Depression History of chickenpox Past Surgical History: Procedure Laterality Date WISDOM TEETH EXTRACTION 2018 Family History Problem Relation Age of Onset Cancer Mother lymphoma Other - Specify Mother BCC - SKIN CANCER Breast Cancer Maternal Grandmother dx in her 60s No known problems Maternal Grandfather No known problems Paternal Grandmother No known problems Paternal Grandfather No known problems Father No known problems Brother No known problems Brother Social History Socioeconomic History Marital status: Single Spouse name: Not on file Number of children: Not on file Years of education: Not on file Highest education level: Not on file Occupational History Not on file Tobacco Use Smoking status: Never Smoker Smokeless tobacco: Never Used Vaping Use Vaping Use: Never used Substance and Sexual Activity Alcohol use: No Drug use: No Sexual activity: Not Currently Partners: Male Other Topics Concern Service No Blood Transfusions No Caffeine Concern Not Asked Occupational Exposure Not Asked Hobby Hazards Not Asked Sleep Concern Not Asked Stress Concern Not Asked Weight Concern Not Asked Special Diet Not Asked Back Care Not Asked Exercise Not Asked Bike Helmet Not Asked Seat Belt Yes Domestic Violence No Social History Narrative Not on file Social Determinants of Health Financial Resource Strain: Difficulty of Paying Living Expenses: Food Insecurity: Worried About Running Out of Food in the Last Year: Ran Out of Food in the Last Year: Transportation Needs: Lack of Transportation (Medical): Lack of Transportation (Non-Medical): Physical Activity: Days of Exercise per Week: Minutes of Exercise per Session: Stress: Feeling of Stress : Social Connections: Frequency of Communication with Friends and Family: Frequency of Social Gatherings with Friends and Family: Attends [employer] Services: Active Member of Clubs or Organizations: Attends Club or Organization Meetings: Marital Status: Intimate Partner Violence: Fear of Current or Ex-Partner: Emotionally Abused: Physically Abused: Sexually Abused: Review of Systems Pertinent items are noted in HPI. General Plastics Review of Systems: Do you have any of the following: Chills, Fatigue, Fever or Night Sweats: no. Ear pain or eye discharge: no. Hearing loss or visual changes: no. Sore throat or chronic cough: no. Shortness of breath: no. Chest pain, swelling, or heart palpitations: no. Abdominal pain: no. Constipation or diarrhea: no. Heartburn or Nausea: no. Rash or skin problems: no. Dizziness or numbness: no. Headaches or Migraines: yes. Seizures: no. Joint pain, joint swelling or muscle weakness: no. Bruise or bleed easily: no. Any swollen lymph nodes: no. Objective: BP (!) 136/96 (BP Location: Left arm, BP Position: Sitting) Pulse 101 Temp 98.7 F (37.1 C) (Temporal) Ht 1.676 m (5' 6 ) Wt 114.2 kg (251 lb 11.2 oz) BMI 40.63 kg/m Smoking Status Never Smoker Patient with bilateral mammary hypertrophy. There are no palpable masses or axillary adenopathy. She is noted to have bilateral shoulder grooves. She has hypertrophy of the trapezius muscle. She has breast asymmetry and ptosis. The left breast appears to be slightly larger than the right. N/A to sternal notch R-38cm, L-39cm Estimate 350-450gm removal. Assessment: Patient for consideration of breast reduction surgery. She would be a good candidate based on her clinical findings Plan: The procedure of breast reduction was thoroughly reviewed with the patient. The patient's goals and expectation for the surgery were reviewed, as well as the reasonable expected outcome. The expected pre-, intra-, and post- operative course was reviewed. Pt to Obtain Further Documentation to Support the Need for the Proposed Procedure. We will then submit all the obtained info to the insurance company to obtain pre-authorization. General Plastics Review of Systems: Do you have any of the following: Chills, Fatigue, Fever or Night Sweats: no. Ear pain or eye discharge: no. Hearing loss or visual changes: no. Sore throat or chronic cough: no. Shortness of breath: no. Chest pain, swelling, or heart palpitations: no. Abdominal pain: no. Constipation or diarrhea: no. Heartburn or Nausea: no. Rash or skin problems: no. Dizziness or numbness: no. Headaches or Migraines: yes. Seizures: no. Joint pain, joint swelling or muscle weakness: no. Bruise or bleed easily: no. Any swollen lymph nodes: no. documented in this encounter [facility] Evaluation note Diagnosis Macromastia- Primary Hypertrophy of breast Chronic back pain, unspecified back location, unspecified back pain laterality [facility] Diagnosis Chronic fatigue- Primary Other malaise and fatigue Vitamin D deficiency Unspecified vitamin D deficiency Obesity: body mass index of 35.0-39.9 Obesity, unspecified [facility] Diagnosis Right ear impacted cerumen- Primary Impacted cerumen Morbid obesity Other fatigue Depression with anxiety Dysthymic disorder Insomnia due to other mental disorder [facility] Diagnosis Depression with anxiety- Primary Dysthymic disorder Morbid obesity [facility] Diagnosis Encounter for other general counseling or advice on contraception Screening for STDs (sexually transmitted diseases) Screening examination for venereal disease Chlamydia infection Unspecified chlamydial infection, in conditions classified elsewhere and of unspecified site Acne, unspecified acne type [facility] Depression with anxiety- Primary Dysthymic disorder Morbid obesity [facility] Diagnosis Depression with anxiety- Primary Dysthymic disorder [facility] Diagnosis Depression with anxiety- Primary Dysthymic disorder Attention deficit hyperactivity disorder (ADHD), combined type [facility] Diagnosis Upper abdominal pain Abdominal pain, other specified site [facility] Diagnosis Calculus of gallbladder without cholecystitis without obstruction- Primary Calculus of gallbladder without mention of cholecystitis or obstruction [facility] Diagnosis Rectal fissure- Primary Anal fissure Morbid obesity Attention deficit hyperactivity disorder (ADHD), combined type Bilateral impacted cerumen Impacted cerumen [facility] Diagnosis control counseling Insulin resistance Other abnormal glucose [facility] Diagnosis Rectal bleeding- Primary Hemorrhage of rectum and anus [facility] Diagnosis Rectal bleeding Hemorrhage of rectum and anus [facility] Diagnosis Encounter for IUD insertion Insertion of intrauterine contraceptive device Encounter for weight management documented in [facility] encounter [facility]* Diagnosis Well woman exam with routine gynecological exam Routine gynecological examination Encounter for surveillance of injectable contraceptive Weight gain Other symptoms concerning nutrition, metabolism, and development Encounter for weight management documented in this encounter [facility]* Diagnosis Encounter for weight management documented in this encounter [facility] Summary Purpose Family History No Family History Records FoundNo Family History Records FoundNo Family History Records FoundNo Family History Records FoundNo Family History Records FoundNo Family History Records FoundNo Family History Records FoundNo Family History Records FoundNo Family History Records Found Advance Directives No Advanced Directives Records FoundNo Advanced Directives Records FoundNo Advanced Directives Records FoundNo Advanced Directives Records FoundNo Advanced Directives Records FoundNo Advanced Directives Records FoundNo Advanced Directives Records FoundNo Advanced Directives Records FoundNo Advanced Directives Records Found History of Present Illness * Maureen Haynes, [employer]CH[employer]IC[employer] - 08/21/2018 11:30 AM EDT History of Present Illness Pt presents today for annual wellness and F/U to b/l breast irritation/candidiasis. Pt was given diflucan 150 mg and took doses 08/18/18 and 08/21/18 (today). Pt reports improvement in irritation. The following portions of the patients of the chart have reviewed and updated as required. Patient Active Problem List Diagnosis Seasonal affective disorder Current Outpatient Medications Medication Sig Dispense Refill Fexofenadine-Pseudoephedrine (RODRIGUEZ-D 24 HOUR PO) Take by mouth daily as needed. fluconazole 150 MG Tab tablet Take one tablet by oral route now and repeat second dose in three days (Patient not taking: Reported on 08/21/2018) 2 tablet 0 No current facility-administered medications for this visit. Past Medical History: Diagnosis Date Allergic rhinitis Depression History of chickenpox Past Surgical History: Procedure Laterality Date WISDOM TEETH EXTRACTION 2017 OB History 0 Para 0 Term 0 0 AB 0 Living 0 SAB 0 TAB 0 Ectopic 0 Molar 0 Multiple 0 Live Births 0 Social History Socioeconomic History Marital status: Single Spouse name: Not on file Number of children: Not on file Years of education: Not on file Highest education level: Not on file Occupational History Not on file Social Needs Financial resource strain: Not on file Food insecurity: Worry: Not on file Inability: Not on file Transportation needs: Medical: Not on file Non-medical: Not on file Tobacco Use Smoking status: Never Smoker Smokeless tobacco: Never Used Substance and Sexual Activity Alcohol use: No Drug use: No Sexual activity: Not Currently Partners: Male Lifestyle Physical activity: Days per week: Not on file Minutes per session: Not on file Stress: Not on file Relationships Social connections: Talks on phone: Not on file Gets together: Not on file Attends hindu service: Not on file Active member of club or organization: Not on file Attends meetings of clubs or organizations: Not on file Relationship status: Not on file Intimate partner violence: Fear of current or ex partner: Not on file Emotionally abused: Not on file Physically abused: Not on file Forced sexual activity: Not on file Other Topics Concern Service No Blood Transfusions No Caffeine Concern Not Asked Occupational Exposure Not Asked Hobby Hazards Not Asked Sleep Concern Not Asked Stress Concern Not Asked Weight Concern Not Asked Special Diet Not Asked Back Care Not Asked Exercise Not Asked Bike Helmet Not Asked Seat Belt Yes Domestic Violence No Social History Narrative Not on file Family History Problem Relation Age of Onset Cancer Mother lymphoma Breast Cancer Maternal Grandmother dx in her 60s Review of Systems Constitutional: Negative. Skin: Negative. HENT: Negative. Eyes: Negative. Cardiovascular: Negative. Respiratory: Negative. Gastrointestinal: Negative. Breast: Negative. Breast irritation still present but much improved and just took second dose of diflucan today Genitourinary: Negative. Musculoskeletal: Negative. Neurological: Negative. Psychiatric: Negative. Allergy/Immunology: Negative. Lymph/Heme: Negative. Endocrine: Negative. Review of Systems Constitutional: Negative. HENT: Negative. Eyes: Negative. Respiratory: Negative. Cardiovascular: Negative. Gastrointestinal: Negative. Genitourinary: Negative. Musculoskeletal: Negative. Skin: Negative. Neurological: Negative. Psychiatric/Behavioral: Negative. Vitals: Blood pressure 110/74, weight 222 lb 12.8 oz (101.1 kg), last menstrual period 08/11/2018. Physical Exam Constitutional: She is oriented to person, place, and time. She appears well- developed and well-nourished. No distress. HENT: Head: Normocephalic and atraumatic. Right Ear: External ear normal. Left Ear: External ear normal. Nose: Nose normal. Mouth/Throat: Oropharynx is clear and moist and mucous membranes are normal. Eyes: Conjunctivae are normal. Neck: Normal range of motion. Neck supple. No JVD present. No tracheal deviation present. No thyroid mass and no thyromegaly present. Cardiovascular: Normal rate, regular rhythm and normal heart sounds. Exam reveals no gallop and no friction rub. No murmur heard. Pulmonary/Chest: Effort normal and breath sounds normal. No stridor. No respiratory distress. She has no wheezes. She has no rales. She exhibits no tenderness, no bony tenderness and no deformity. Right breast exhibits no inverted nipple, no mass, no nipple discharge, no skin change and no tenderness. Left breast exhibits no inverted nipple, no mass, no nipple discharge, no skin change and no tenderness. Breasts are symmetrical. Few areas of raised erythematous areas noted b/l breasts, much improved from last week Abdominal: Soft. Normal appearance. She exhibits no distension and no mass. There is no tenderness.There is no rebound and no guarding. No hernia. Genitourinary: Vagina normal and uterus normal. No labial fusion. There is no rash, tenderness, lesion or injury on the right labia. There is no rash, tenderness, lesion or injury on the left labia. Cervix exhibits no motion tenderness, no discharge and no friability. Right adnexum displays no mass, no tenderness and no fullness. Left adnexum displays no mass, no tenderness and no fullness. Musculoskeletal: Normal range of motion. She exhibits no edema, tenderness or deformity. Lymphadenopathy: She has no cervical adenopathy. Neurological: She is alert and oriented to person, place, and time. Coordination normal. Skin: Skin is warm, dry and intact. No lesion and no rash noted. She is not diaphoretic. No erythema. No pallor. Psychiatric: She has a normal mood and affect. Her behavior is normal. Judgment and thought contentnormal. Nursing note and vitals reviewed. Neurologic Exam Mental Status Oriented to person, place, and time. Assessment and Plan 1. 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 Candidiasis of breast Symptoms improving and areas of yeast much improved upon physical exam today - fluconazole 150 MG Tab tablet; Take one tablet by oral route now and repeat second dose in 72 hours as needed for irritation Dispense: 2 tablet; Refill: 0 Return in about 1 year (around 08/22/2019) for Annual wellness. documented in this encounter* Eric Grubbs MD - 08/19/2019 3:15 PM EDT Chief Complaint Patient presents with Mole Pt here for c/o mole underneath left arm she states is painful. Depression Pt here to discuss depression/anxiety. Pt has taken wellbutrin in past. Pt states she has thoughts of harming herself but has not attempted. Anxiety Patient present for complaints of depression and anxiety that is currently being treated with no medications.. Duration of symptoms - February 2019. And started with work and some seasonal depression.. Functional status - going to school. work and doing all ADLs. Alleviating factors - none. Aggravating factors - stress and work and winter. Substance abuse - none. Patient has/reports - depressed mood, weight gain, insomnia, fatigue, difficulty concentrating, impaired memory and suicidal thoughts without plan. She specifically denies - weight loss, hypersomnia, suicidal thoughts with specific plan and suicidal attempt. See Screening tab for PHQ-9 Results. Review of Systems - Constitutional: Negative for appetite change, fatigue and fever. HENT: Negative for congestion, dental problem, hearing loss, nosebleeds, postnasal drip, rhinorrhea, sinus pressure, sinus pain, sore throat, tinnitus and voice change. Eyes: Negative for pain, discharge, redness and visual disturbance. Respiratory: Negative for cough, shortness of breath and wheezing. Cardiovascular: Negative for chest pain and palpitations. Gastrointestinal: Negative for abdominal pain, constipation, diarrhea, nausea and vomiting. Endocrine: Negative for cold intolerance, heat intolerance and polyuria. Genitourinary: Negative for dysuria and enuresis. Musculoskeletal: Negative for arthralgias, back pain, joint swelling, myalgias and neck pain. Skin: Negative for color change and rash. Neurological: Negative for dizziness, tremors, syncope, weakness, numbness and headaches. Hematological: Does not bruise/bleed easily. Psychiatric/Behavioral: Positive for sleep disturbance. Negative for confusion, dysphoric mood, self-injury and suicidal ideas. The patient is nervous/anxious. Physical Examination: Blood pressure 102/62, pulse 92, temperature 99.6 F (37.6 C), temperature source Temporal, resp. rate 16, height 1.676 m (5' 6 ), weight 107 kg (236 lb), SpO2 98 %. Physical Exam Constitutional: General: She is not in acute distress. Appearance: She is well-developed. She is not diaphoretic. Eyes: Conjunctiva/sclera: Conjunctivae normal. Pupils: Pupils are equal, round, and reactive to light. Neck: Musculoskeletal: Normal range of motion. Cardiovascular: Rate and Rhythm: Normal rate and regular rhythm. Heart sounds: No murmur. Pulmonary: Effort: Pulmonary effort is normal. No respiratory distress. Breath sounds: Normal breath sounds. No wheezing. Abdominal: General: Bowel sounds are normal. There is no distension. Palpations: Abdomen is soft. Tenderness: There is no abdominal tenderness. There is no rebound. Skin: Comments: There is a 3 mm pedunculated papule present on the medial aspect of the left upper inner arm. There is no surrounding skin changes. Assessment and Plan: 1. Other specified anxiety disorders - buPROPion 150 MG tablet XL; Take 1 tablet by mouth daily every morning. Dispense: 30 tablet; Refill: 2 The risk and benefits of therapy were discussed with the patient. Alarm symptoms were discussed, along with reasons for contacting the office or going to the ER. Questions were answered for the patient. 2. Acquired skin tag Pt will return for skin tag excision at a later time. * Blake Rodriguez RN - 08/19/2019 3:15 PM EDT Nurse Note: Review of Systems Constitutional: Negative for appetite change, fatigue and fever. HENT: Negative for congestion, dental problem, hearing loss, nosebleeds, postnasal drip, rhinorrhea, sinus pressure, sinus pain, sore throat, tinnitus and voice change. Eyes: Negative for pain, discharge, redness and visual disturbance. Respiratory: Negative for cough, shortness of breath and wheezing. Cardiovascular: Negative for chest pain and palpitations. Gastrointestinal: Negative for abdominal pain, constipation, diarrhea, nausea and vomiting. Endocrine: Negative for cold intolerance, heat intolerance and polyuria. Genitourinary: Negative for dysuria and enuresis. Musculoskeletal: Negative for arthralgias, back pain, joint swelling, myalgias and neck pain. Skin: Negative for color change and rash. Neurological: Negative for dizziness, tremors, syncope, weakness, numbness and headaches. Hematological: Does not bruise/bleed easily. Psychiatric/Behavioral: Positive for sleep disturbance. Negative for confusion, dysphoric mood, self-injury and suicidal ideas. The patient is nervous/anxious. Nursing Assessment: Physical Exam documented in this encounter* Shayy Juarez MD - 12/01/2019 3:00 PM EDT Subjective: Javon Montoya is an 18 y.o. female who presents for evaluation for Breast reduction consult. Pt c/o back and neck pain. Pt states that she has seen a chiropractor and massage therapist, takes NSAIDs and uses ice/heat to try to alleviate pain. Pt states that she wears a 40DDD bra, but it may actually be larger. FH for breast cancer [employer] Nonsmoker No Known Allergies Current Outpatient Medications Medication Sig Dispense Refill buPROPion 150 MG tablet XL Take 1 tablet by mouth daily every morning. 30 tablet 2 Fexofenadine-Pseudoephedrine (RODRIGUEZ-D 24 HOUR PO) Take by mouth daily as needed. No current facility-administered medications for this visit. Past Medical History: Diagnosis Date Allergic rhinitis Depression History of chickenpox Past Surgical History: Procedure Laterality Date WISDOM TEETH EXTRACTION 2018 Family History Problem Relation Age of Onset Cancer Mother lymphoma Other - Specify Mother BCC - SKIN CANCER Breast Cancer Maternal Grandmother dx in her 60s Social History Socioeconomic History Marital status: Single Spouse name: Not on file Number of children: Not on file Years of education: Not on file Highest education level: Not on file Occupational History Not on file Social Needs Financial resource strain: Not on file Food insecurity Worry: Not on file Inability: Not on file Transportation needs Medical: Not on file Non-medical: Not on file Tobacco Use Smoking status: Never Smoker Smokeless tobacco: Never Used Substance and Sexual Activity Alcohol use: No Drug use: No Sexual activity: Not Currently Partners: Male Lifestyle Physical activity Days per week: Not on file Minutes per session: Not on file Stress: Not on file Relationships Social connections Talks on phone: Not on file Gets together: Not on file Attends hindu service: Not on file Active member of club or organization: Not on file Attends meetings of clubs or organizations: Not on file Relationship status: Not on file Intimate partner violence Fear of current or ex partner: Not on file Emotionally abused: Not on file Physically abused: Not on file Forced sexual activity: Not on file Other Topics Concern Service No Blood Transfusions No Caffeine Concern Not Asked Occupational Exposure Not Asked Hobby Hazards Not Asked Sleep Concern Not Asked Stress Concern Not Asked Weight Concern Not Asked Special Diet Not Asked Back Care Not Asked Exercise Not Asked Bike Helmet Not Asked Seat Belt Yes Domestic Violence No Social History Narrative Not on file Review of Systems Pertinent items are noted in HPI. General Plastics Review of Systems: Do you have any of the following: Chills, Fatigue, Fever or Night Sweats: no. Ear pain or eye discharge: no. Hearing loss or visual changes: no. Sore throat or chronic cough: no. Shortness of breath: no. Chest pain, swelling, or heart palpitations: no. Abdominal pain: no. Constipation or diarrhea: no. Heartburn or Nausea: no. Rash or skin problems: no. Dizziness or numbness: no. Headaches or Migraines: no. Seizures: no. Joint pain, joint swelling or muscle weakness: no. Bruise or bleed easily: no. Any swollen lymph nodes: no. Objective: BP 134/84 (BP Location: Right arm, BP Position: Sitting) Pulse 98 Temp 99.1 F (37.3 C) (Temporal) Ht 1.676 m (5' 6 ) Wt 107.8 kg (237 lb 9.6 oz) BMI 38.35 kg/m Smoking Status Never Smoker Patient with bilateral mammary hypertrophy and ptosis Bilateral shoulder grooves. Hypertrophy of the trapezius. No palpable masses or axillary adenopathy. Assessment: Patient would be a good candidate for breast reduction surgery. Plan: She will be leaving in February for work in [place]. Therefore we have discussed deferring surgery until next year. She did not want to pictures taken today and would rather wait until next year The procedure of breast reduction was thoroughly reviewed with the patient. The patient's goals and expectation for the surgery were reviewed, as well as the reasonable expected outcome. The expected pre-, intra-, and post- operative course was reviewed. The potential for the inability to breast feed as well as permanent nipple numbness was reviewed She will call us back and reschedule an appointment when she is closer to proceeding with breast reduction surgery Pt to Obtain Further Documentation to Support the Need for the Proposed Procedure. We will then submit all the obtained info to the insurance company to obtain pre-authorization. I spent 30 minutes face to face with the patient. Greater than 50% of this time was spent counseling the patient regarding the proposed procedure or instruction. * Tanja Richard - 12/01/2019 3:00 PM EDT General Plastics Review of Systems: Do you have any of the following: Chills, Fatigue, Fever or Night Sweats: no. Ear pain or eye discharge: no. Hearing loss or visual changes: no. Sore throat or chronic cough: no. Shortness of breath: no. Chest pain, swelling, or heart palpitations: no. Abdominal pain: no. Constipation or diarrhea: no. Heartburn or Nausea: no. Rash or skin problems: no. Dizziness or numbness: no. Headaches or Migraines: no. Seizures: no. Joint pain, joint swelling or muscle weakness: no. Bruise or bleed easily: no. Any swollen lymph nodes: no. documented in this encounter* Maureen Haynes, BANK TELLER MACHINE MECHANIC-[employer]KE REAMER - 01/03/2020 9:20 AM EDT History of Present Illness Pt presents today for annual wellness. Pt doing well. Denies concerns. The following portions of the patients of the chart have reviewed and updated as required. Patient Active Problem List Diagnosis Seasonal affective disorder Obesity: body mass index of 35.0-39.9 Macromastia Chronic back pain Current Outpatient Medications Medication Sig Dispense Refill buPROPion 150 MG tablet XL Take 1 tablet by mouth daily every morning. 30 tablet 2 Fexofenadine-Pseudoephedrine (RODRIGUEZ-D 24 HOUR PO) Take by mouth daily as needed. No current facility-administered medications for this visit. Past Medical History: Diagnosis Date Allergic rhinitis Depression History of chickenpox Past Surgical History: Procedure Laterality Date WISDOM TEETH EXTRACTION 2017 OB History 0 Para 0 Term 0 0 AB 0 Living 0 SAB 0 TAB 0 Ectopic 0 Molar 0 Multiple 0 Live Births 0 Social History Socioeconomic History Marital status: Single Spouse name: Not on file Number of children: Not on file Years of education: Not on file Highest education level: Not on file Occupational History Not on file Social Needs Financial resource strain: Not on file Food insecurity Worry: Not on file Inability: Not on file Transportation needs Medical: Not on file Non-medical: Not on file Tobacco Use Smoking status: Never Smoker Smokeless tobacco: Never Used Substance and Sexual Activity Alcohol use: No Drug use: No Sexual activity: Not Currently Partners: Male Lifestyle Physical activity Days per week: Not on file Minutes per session: Not on file Stress: Not on file Relationships Social connections Talks on phone: Not on file Gets together: Not on file Attends hindu service: Not on file Active member of club or organization: Not on file Attends meetings of clubs or organizations: Not on file Relationship status: Not on file Intimate partner violence Fear of current or ex partner: Not on file Emotionally abused: Not on file Physically abused: Not on file Forced sexual activity: Not on file Other Topics Concern Service No Blood Transfusions No Caffeine Concern Not Asked Occupational Exposure Not Asked Hobby Hazards Not Asked Sleep Concern Not Asked Stress Concern Not Asked Weight Concern Not Asked Special Diet Not Asked Back Care Not Asked Exercise Not Asked Bike Helmet Not Asked Seat Belt Yes Domestic Violence No Social History Narrative Not on file Family History Problem Relation Age of Onset Cancer Mother lymphoma Other - Specify Mother BCC - SKIN CANCER Breast Cancer Maternal Grandmother dx in her 60s No known problems Maternal Grandfather No known problems Paternal Grandmother No known problems Paternal Grandfather No known problems Father No known problems Brother No known problems Brother Review of Systems Constitutional: Negative. HENT: Negative. Eyes: Negative. Respiratory: Negative. Cardiovascular: Negative. Gastrointestinal: Negative. Endocrine: Negative. Genitourinary: Negative. Musculoskeletal: Negative. Skin: Negative. Allergic/Immunologic: Negative. Neurological: Negative. Hematological: Negative. Psychiatric/Behavioral: Negative. Vitals: Blood pressure 112/80, temperature 98.4 F (36.9 C), temperature source Temporal, height 5' 6 (1.676 m), weight 243 lb (110.2 kg), last menstrual period 12/21/2019. Physical Exam Vitals signs and nursing note reviewed. Constitutional: General: She is not in acute distress. Appearance: Normal appearance. She is well-developed and normal weight. She is not diaphoretic. HENT: Head: Normocephalic and atraumatic. Right Ear: External ear normal. Left Ear: External ear normal. Nose: Nose normal. Eyes: Conjunctiva/sclera: Conjunctivae normal. Neck: Musculoskeletal: Normal range of motion and neck supple. Thyroid: No thyroid mass or thyromegaly. Vascular: No JVD. Trachea: No tracheal deviation. Cardiovascular: Rate and Rhythm: Normal rate and regular rhythm. Heart sounds: Normal heart sounds. No murmur. No friction rub. No gallop. Pulmonary: Effort: Pulmonary effort is normal. No respiratory distress. Breath sounds: Normal breath sounds. No stridor. No wheezing or rales. Chest: Chest wall: No deformity or tenderness. Breasts: Breasts are symmetrical. Right: No inverted nipple, mass, nipple discharge, skin change or tenderness. Left: No inverted nipple, mass, nipple discharge, skin change or tenderness. Abdominal: General: There is no distension. Palpations: Abdomen is soft. There is no mass. Tenderness: There is no abdominal tenderness. There is no guarding or rebound. Hernia: No hernia is present. Genitourinary: General: Normal vulva. Exam position: Lithotomy position. Labia: Right: No rash, tenderness, lesion or injury. Left: No rash, tenderness, lesion or injury. Vagina: Normal. Cervix: Normal. Uterus: Normal. Adnexa: Right adnexa normal and left adnexa normal. Right: No mass, tenderness or fullness. Left: No mass, tenderness or fullness. Musculoskeletal: Normal range of motion. General: No tenderness or deformity. Lymphadenopathy: Cervical: No cervical adenopathy. Skin: General: Skin is warm and dry. Coloration: Skin is not pale. Findings: No erythema, lesion or rash. Neurological: Mental Status: She is alert and oriented to person, place, and time. Coordination: Coordination normal. Psychiatric: Mood and Affect: Mood normal. Behavior: Behavior normal. Thought Content: Thought content normal. Judgment: Judgment normal. Neurologic Exam Mental Status Oriented to person, place, and time. Assessment and Plan 1. 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 Pt advised due for next annual wellness in a year and to establish care in [place]. Pt verbalizes understanding. Return in about 1 year (around 01/02/2021) for Annual wellness. documented in this encounter* Eric Grubbs MD - 06/05/2020 9:30 AM EST Chief Complaint Patient presents with Abdominal Pain Pt. is here with c/o abdominal pain, blood in her stool, hemrhoids and frequent Bm's at times constipation and diarrhea. This has been going on for a while but has become worse since November. Patient Complaint - Javon Montoya presents today for complaints of Abdominal Pain. Blood in stool and hemrhoids and frequent stool since November Location - lower abdomen Duration - since November Quality of pain - shooting pains similar to menstrual cramps. Treatments tried - none, but eating more fiber. Nausea- none Diarrhea- blood in stool Has there been similar problems in the past - No For females, last menstrual period or status - normal montly High risk questions (If yes, route as high priority & page physician - Link to [employer]) Fever - No Severe belly pain - No Stool black or bloody - No Vomiting blood or coffee grounds - No Persistent nausea, vomiting, or diarrhea - No Mental status changes - No Additional comments: none There are no exam notes on file for this visit. OBJECTIVE: BP 110/78 (BP Location: Left arm, BP Position: Sitting) Pulse 88 Temp 97 F (36.1 C) (Temporal) Resp 16 Ht 1.676 m (5' 6 ) Wt 113.3 kg (249 lb 12.8 oz) BMI 40.32 kg/m Smoking Status Never Smoker Physical Exam Constitutional: General: She is not in acute distress. Appearance: She is well-developed. She is not diaphoretic. Eyes: Conjunctiva/sclera: Conjunctivae normal. Pupils: Pupils are equal, round, and reactive to light. Neck: Musculoskeletal: Normal range of motion. Cardiovascular: Rate and Rhythm: Normal rate and regular rhythm. Heart sounds: No murmur. Pulmonary: Effort: Pulmonary effort is normal. No respiratory distress. Breath sounds: Normal breath sounds. No wheezing. Abdominal: General: Abdomen is flat. Bowel sounds are normal. Palpations: Abdomen is soft. Tenderness: There is abdominal tenderness in the right lower quadrant and left lower quadrant. There is guarding. There is no rebound. Assessment/Plan 1. Abdominal pain, right lower quadrant - family hx of Crohn's disease. Discussed risk and benefitsof colonoscopy for definitive dx. Since Pt is currently serving in the [employer] [facility] in [place] she will get the name of a orthodontist small business owner or surgeon who performs colonscopy in [place] and will call back so that a referral can be made. Also discussed would be good if she had a orthodontist small business owner who could treat her for the colitis in [place]. The risk and benefits of testing were discussed with the patient. Alarm symptoms were discussed, along with reasons for contacting the office or going to the ER. Questions were answered for the patient. * Paty Chow LPN - 06/05/2020 9:30 AM EST Nurse Note: Review of Systems Constitutional: Negative for chills, fatigue and fever. HENT: Negative for congestion, ear pain, facial swelling, hearing loss, postnasal drip, rhinorrhea,sinus pressure, sinus pain, sneezing, sore throat and trouble swallowing. Respiratory: Negative for cough, chest tightness, shortness of breath and wheezing. Cardiovascular: Negative for chest pain. Gastrointestinal: Positive for abdominal pain, constipation and diarrhea. Negative for nausea and vomiting. Genitourinary: Negative for dysuria. Musculoskeletal: Negative for arthralgias and myalgias. Skin: Negative for rash. Nursing Assessment: Physical Exam documented in this encounter* Eric Grubbs MD - 11/08/2019 11:00 AM EDT Chief Complaint: Chief Complaint Patient presents with Skin Tag pt states has skin tag on left arm that would like removed. Breast Problem pt states has back pain and indents on shoulder and would to discuss a referral for breast reduction. History of Present Illness Javon Montoya is a 18 y.o. female who comes in with the following complaint(s): Skin tag on leftarm that has been present for many years and it gets irritated and no bleeding. Pt also has had neck and back pain which is chronic. She will get pain from the shoulder straps from her bra. This has been slowly getting worse over time. She would like to talk to a plastic surgeon to discuss breast reduction surgery. There is no piror hx of breast pathology. Fever: none Sore Throat: none Diarrhea: none History of eczema/dry skin: none No infectious contacts Significant exposures: none No new soaps/detergents/lotions No recent new medication use Therapy tried so far includes: none Active Problem List Shehas Seasonal affective disorder and Obesity: body mass index of 35.0-39.9 on their problem list. Current Medications Current Outpatient Medications Medication Sig Dispense Refill buPROPion 150 MG tablet XL Take 1 tablet by mouth daily every morning. 30 tablet 2 Fexofenadine-Pseudoephedrine (RODRIGUEZ-D 24 HOUR PO) Take by mouth daily as needed. No current facility-administered medications for this visit. Allergies She has No Known Allergies. Review of Systems Nurse Note: Review of Systems Constitutional: Negative for appetite change, fatigue and fever. HENT: Negative for congestion, dental problem, hearing loss, nosebleeds, postnasal drip, rhinorrhea, sinus pressure, sinus pain, sore throat, tinnitus and voice change. Eyes: Negative for pain, discharge, redness and visual disturbance. Respiratory: Negative for cough, shortness of breath and wheezing. Cardiovascular: Negative for chest pain and palpitations. Gastrointestinal: Negative for abdominal pain, constipation, diarrhea, nausea and vomiting. Endocrine: Negative for cold intolerance, heat intolerance and polyuria. Genitourinary: Negative for dysuria and enuresis. Musculoskeletal: Positive for back pain. Negative for arthralgias, joint swelling, myalgias and neck pain. Skin: Negative for color change and rash. Neurological: Negative for dizziness, tremors, syncope, weakness, numbness and headaches. Hematological: Does not bruise/bleed easily. Psychiatric/Behavioral: Negative for confusion, dysphoric mood, self-injury, sleep disturbance and suicidal ideas. The patient is not nervous/anxious. Nursing Assessment: Physical Exam Physical Exam Blood pressure 108/82, pulse 118, temperature 97.2 F (36.2 C), temperature source Temporal, resp. rate 18, height 1.676 m (5' 6 ), weight 108.5 kg (239 lb 3.2 oz), SpO2 98 %., Body mass index is 38.61 kg/m . Physical Exam Neck: Musculoskeletal: Normal range of motion and neck supple. No neck rigidity or muscular tenderness. Cardiovascular: Rate and Rhythm: Normal rate. Pulses: Normal pulses. Pulmonary: Effort: Pulmonary effort is normal. Breath sounds: Normal breath sounds. Musculoskeletal: Normal range of motion. General: No tenderness. Comments: Mild spasm in the trapezius and thoracic Paraspinous muscles. Lymphadenopathy: Cervical: No cervical adenopathy. Skin: Neurological: General: No focal deficit present. Assessment/Plan There are no diagnoses linked to this encounter. The risk and benefits were discussed with the patient. Alarm symptoms were discussed, along with reasons for contacting the office or going to the ER. Questions were answered for the patient. * Oscar Herrera LPN - 11/08/2019 11:00 AM EDT Nurse Note: Review of Systems Constitutional: Negative for appetite change, fatigue and fever. HENT: Negative for congestion, dental problem, hearing loss, nosebleeds, postnasal drip, rhinorrhea, sinus pressure, sinus pain, sore throat, tinnitus and voice change. Eyes: Negative for pain, discharge, redness and visual disturbance. Respiratory: Negative for cough, shortness of breath and wheezing. Cardiovascular: Negative for chest pain and palpitations. Gastrointestinal: Negative for abdominal pain, constipation, diarrhea, nausea and vomiting. Endocrine: Negative for cold intolerance, heat intolerance and polyuria. Genitourinary: Negative for dysuria and enuresis. Musculoskeletal: Positive for back pain. Negative for arthralgias, joint swelling, myalgias and neck pain. Skin: Negative for color change and rash. Neurological: Negative for dizziness, tremors, syncope, weakness, numbness and headaches. Hematological: Does not bruise/bleed easily. Psychiatric/Behavioral: Negative for confusion, dysphoric mood, self-injury, sleep disturbance and suicidal ideas. The patient is not nervous/anxious. Nursing Assessment: Physical Exam documented in this encounter Assessments Diagnosis Encounter for gynecological examination without abnormal finding- Primary Routine gynecological examination Candidiasis of breast Candidiasis of other urogenital sites Diagnosis Other specified anxiety disorders Acquired skin tag Diagnosis Macromastia Hypertrophy of breast Chronic back pain, unspecified back location, unspecified back pain laterality Diagnosis Encounter for gynecological examination without abnormal finding Routine gynecological examination Diagnosis Abdominal pain, right lower quadrant- Primary Diagnosis Skin tag Unspecified hypertrophic and atrophic condition of skin Macromastia Hypertrophy of breast Chronic midline thoracic back pain Reason for Referral Status Reason Specialty Diagnoses / Procedures Referred By Contact Referred To Contact New Request Plastic Surgery Diagnoses Macromastia Chronic midline thoracic back pain Eric Grubbs MD [address] [place] [address] Shayy Juarez MD [address] [place] [address] Specialty Diagnoses / Procedures Referred By Contac t Referred To Contact Diagnoses Upper abdominal pain Procedures US ABDOMEN RUQ/LIVER/GB Nichole Bartholomew MD [address] [place] [address] Referral ID Status Reason Start Date Expiration Date Visits Re quested Visits Authorized [id number] Closed 10/02/2023 10/26/2024 1 1 Specialty Diagnoses / Procedures Referred By Contac t Referred To Contact Diagnoses Rectal bleeding Procedures DIAGNOSTIC COLONOSCOPY DC COLONOSCOPY FLX DX W/COLLJ SPEC WHEN PFAshly Delarosa MD [address] [place] [address] Referral ID Status Reason Start Date Expiration Date Visits Re quested Visits Authorized [id number] Closed 04/22/2024 05/17/2025 1 1 Additional Source Comments INFORMATION SOURCE (unrecogn ized section and content) DATE CREATED AUTHOR 01/01/2018 [facility] DATE CREATED AUTHOR AUTHOR'S ORGANIZ ATINDIA 04/28/2020 [facility] DATE CREATED AUTHOR AUTHOR'S ORGANIZ ATION 03/09/2021 [facility] DATE CREATED AUTHOR AUTHOR'S ORGANIZ ATION 10/08/2023 [facility] DATE CREATED AUTHOR AUTHOR'S ORGANIZ ATION 12/27/2023 [facility] DATE CREATED AUTHOR AUTHOR'S ORGANIZ ATION 12/30/2023 [facility] DATE CREATED AUTHOR AUTHOR'S ORGANIZ ATION 04/29/2024 [facility] DATE CREATED AUTHOR AUTHOR'S ORGANIZ ATION 05/02/2024 [facility] DATE CREATED AUTHOR AUTHOR'S ORGANIZ ATION 07/15/2024 [facility] Reason for Visit (unrecogniz ed section and content) Reason Comments Breast Problem Reason Comments Mole Pt here for c/o mole underneath left arm she states is painful. Depression Pt here to discuss d epression/anxiety. Pt has taken wellbutrin in past. Pt states she has thoughts of harming herself but has not attempted. Reason Comments New Patient Breast reduction con sult. Pt c/o back and neck pain. Pt states that she has seen a chiropractor and massage therapist, takes NSAIDs and uses ice/heat to try to alleviate pain. Pt states that she wears a 40DDD bra, but it may actually be larger. Status Reason Specialty Diagnoses / Procedures Referred By Contact Referred To Contact New Request Plastic Surgery Diagnoses Macromastia Chronic midline thoracic back pain Eric Grubbs MD [address] [place] [address] Shayy Juarez MD [address] [place] [address] Reason Comments Annual Exam WNL pap 08/21/18 Reason Comments Abdominal Pain Pt. is here with c/o abdominal pain, blood in her stool, hemrhoids and frequent Bm's at times constipation and diarrhea. This has been going on for a while but has become worse since November. Reason Comments Skin Tag pt states has skin t ag on left arm that would like removed. Breast Problem pt states has back p ain and indents on shoulder and would to discuss a referral for breast reduction. Reason Comments Follow-up Breast reduction con sult. Pt c/o back and neck pain and headaches. Pt states that she has seen a chiropractor and massage therapist, takes NSAIDs and uses ice/heat to try to alleviate pain. Pt states that she wears a 42H bra. Reason Comments Weight Gain Patient would like t o discuss going back on adipex. Referral Patient states has P COS but feels some symptoms are the same as thyroid disease and would like that checked. Reason Comments Obesity Depression Insomnia Reason Comments Follow-up 4 week Reason Comments Annual Exam Establish Care pcos Reason Comments Depression Follow-up 2 month Reason Comments Depression Anxiety Follow-up Reason Comments Depression Anxiety Other Pt requesting referr al for ADHD. Reason Comments Abdominal Pain Patient reports abd pain x 1/2 hour ago. Describes as sharp stabbing. Radiates from inferior to xyphoid process. to back. Patient rapid shallow breaths in triage process Specialty Diagnoses / Procedures Referred By Contac t Referred To Contact Diagnoses Upper abdominal pain Procedures US ABDOMEN RUQ/LIVER/GB Nichole Bartholomew MD [address] [place] [address] Referral ID Status Reason Start Date Expiration Date Visits Re quested Visits Authorized [id number] Closed 10/02/2023 10/26/2024 1 1 Reason Comments New Patient Reason Comments Follow-up 6 Months Vitamin B-12 Deficiency Obesity Reason Comments Discuss getting IUD Specialty Diagnoses / Procedures Referred By Contac t Referred To Contact Diagnoses Rectal bleeding Procedures DIAGNOSTIC COLONOSCOPY DC COLONOSCOPY FLX DX W/COLLJ SPEC WHEN PFRMD Ashly Infante MD [address] [place] [id number] Referral ID Status Reason Start Date Expiration Date Visits Re quested Visits Authorized [id number] Closed 04/22/2024 05/17/2025 1 1 Reason Comments Contraception Pt present today for an IUD Mirena insertion visit. Weight Management Pt present today for first initial Adipex #1 visit. Reason Comments Gynecologic Exam Pt present for annua l/Mirena string check. Weight Management Pt present today for Adipex #2 visit. Reason Comments Weight Management Care Teams (unrecognized sec tion and content) Supervisor [employer] Workers Relationship Specialty Start Date End Date Eric Grubbs MD PCP - General Internal Medicine 01/15/17 [employer]visor [employer] Relationship Specialty Start Date End Date Nichole Bartholomew MD [address] [place] [facility] [place] [address] PCP - General Family Medicine 04/09/22 Supervisor [employer] Relationship Specialty Start Date End Date Nichole Bartholomew MD [address] [place] [facility] [place] [address] PCP - General Family Medicine 04/09/22 Supervisor [employer] Relationship Specialty Start Date End Date Nichole Bartholomew MD [address] [place] [facility] [place] [address] PCP - General Family Medicine 04/09/22 Supervisor [employer] Workers Relationship Specialty Start Date End Date Nichole Bartholomew MD [address] [place] [facility] [place] [address] PCP - General Family Medicine 04/09/22 Supervisor [employer] Relationship Specialty Start Date End Date Nichole Bartholomew MD [address] [place] [facility] [address] PCP - General Family Medicine 04/09/22 Supervisor [employer] Relationship Specialty Start Date End Date Nichole Bartholomew MD [address] [place] [facility] [address] PCP - General Family Medicine 04/09/22 Supervisor [employer] Relationship Specialty Start Date End Date Nichole Bartholomew MD [address] [place] [address] PCP - General Family Medicine 04/09/22 Supervisor [employer] Relationship Specialty Start Date End Date Nichole Bartholomew MD [address] [place] [facility] [place] [address] PCP - General Family Medicine 04/09/22 Supervisor [employer] Relationship Specialty Start Date End Date Nichole Bartholomew MD [address], [place] [address] PCP - General Family Medicine 04/09/22 [employer] Relationship Specialty Start Date End Date Nichole Bartholomew MD [address] [place] [address] PCP - General Family Medicine 04/09/22 [employer] Relationship Specialty Start Date End Date Nichole Bartholomew MD [address] [place] [address] PCP - General Family Medicine 03/30/24 [employer] Relationship Specialty Start Date End Date Nichole Bartholomew MD [address] [place] [address] PCP - General Family Medicine 03/30/24 [employer] Relationship Specialty Start Date End Date Nichole Bartholomew MD [address] [place] [address] PCP - General Family Medicine 04/09/22 [employer] Relationship Specialty Start Date End Date Nichole Bartholomew MD [address] [place] [address] PCP - General Family Medicine 04/09/22 [employer] Relationship Specialty Start Date End Date Nichole Bartholomew MD [address] [place] [address] PCP - General Family Medicine 03/30/24 [employer] Relationship Specialty Start Date End Date Nichole Bartholomew MD [address] [place] [address] PCP - General Family Medicine 03/30/24 [employer] Relationship Specialty Start Date End Date Nichole Bartholomew MD [address] [place] [address] PCP - General Family Medicine 03/30/24 [employer] Relationship Specialty Start Date End Date Nichole Bartholomew MD [address] [place] [id number] PCP - General Family Medicine 03/30/24 [employer] Relationship Specialty Start Date End Date Nichole Bartholomew MD [address] [place] [address] PCP - General Family Medicine 03/30/24 [employer] Relationship Specialty Start Date End Date Nichole Bartholomew MD [address] [place] [address] PCP - General Family Medicine 03/30/24 FOR RECORDS PERTAINING TO PATIENTS WHO ARE OR HAVE BEEN ENROLLED IN A CHEMICAL DEPENDENCY/SUBSTANCEABUSE PROGRAM, SOME INFORMATION MAY BE OMITTED. This clinical summary was aggregated from multiple sources. Caution should be exercised in using it in the provision of clinical care. This summary normalizes information from multiple sources, and as a consequence, information in this document may materially change the coding, format and clinical context of patient data. In addition, data may be omitted in some cases. CLINICAL DECISIONS SHOULD BE BASED ON THE PRIMARY CLINICAL RECORDS. [employer] [facility]. provides no warranty or guarantee of the accuracy or completeness of information in this document.
== END 2024-07-14 09:14 | disposition home or self-care (01) ==
LOC: LAB 07-16 09:11
PROVIDERS: Visit Provider Obstetrics & Gynecology
DX: R87.810 Cervical high risk human papillomavirus (HPV) DNA test positive (principal)
CPT/HCPCS: 88305

== ENCOUNTER 2025-01-11 19:10 | Outpatient (REF) | payer OTHER, SELFPAY ==
--- OUTSIDE RECORDS SUMMARY | 2019-04-14 04:30 | XMS_ITS | Continuity of Care Document ---
Author Organization [facility] Address [address] [place] [address] Phone Care Team Providers Care Philosophy Faculty Member Name Role Phone Unavailable Unavailable Unavailable Procedures Procedure Date Void Venipuncture Advance Directives Directive Yes / No Effective Date File Name No Information Encounters Encounter Description Practice Location Reason(s) For Visit Diagnoses Date Provider Providers Copied on Encounter [facility], [address] [facility] [place], [id number], [place] tel:[phone] [facility] No Information No Information Family History Family Member Type Diagnosis Age At Onset No Information Payers Payer name Insurance type Covered alliance party ID Authoriza tilaney(s) Rajtna CI [id number] Social History Type Description Quantity Date Captured Comments Sex Female Smoking Status No Information Chief Complaint And Reason For Visit No Information Reason For Referral Reason For Referral No Information History Of Present Illness Encounter Date Complaint History Of Prese nt Illness No Information Functional Status Date Functional Assessmen t No Information Instructions Date Instruction Additional Infor mation No Information Assessments Type Assessment Date No Information Patient Care Teams Name Effective Dates (start - stop) Status Members No Information
--- OUTSIDE RECORDS SUMMARY | 2021-08-14 07:15 | XMS_ITS | Continuity of Care Document ---
Author Organization [facility] Address [address] [place] [address] Phone Care Team Providers Care Safety Spec Name Role Phone Chace Merritt Unavailable Unavailable Procedures Procedure Date IMMUNIZATION ADMIN, EACH ADD HEP A VACCINE, ADULT IM IMMUNIZATION ADMIN TDAP VACCINE >7 IM Covid Testing [facility] Moderna Booster Moderna Booster IMMUNIZATION ADMIN FLU VAC NO PRSV 4 ABDIRASHID 3 YRS+ TB Read TB INTRADERMAL TEST TB Read TB INTRADERMAL TEST Advance Directives Directive Yes / No Effective Date File Name No Information Encounters Encounter Description Practice Location Reason(s) For Visit Diagnoses Date Provider Providers Copied on Encounter [facility], [address] [place] [address], [id number], [place] tel:[phone] [facility] No Information Niurka Martinez. [address] [place] [address], [id number], [place]. tel:[phone] [facility], [address] [place] [address], [id number], [place] tel:[phone] [facility] Encounter For Screening For Covid-19Encoun ter for screening for other viral diseases Visci DO Chace. [address], [place], [id number], [place]. tel:[phone] [facility], [address], [place], [id number], [place] tel:[phone] [facility] No Information Visci DO Chace. [address], [place], [id number], [place]. tel:[phone] [facility], [address], [place], [id number], [place] tel:[phone] [facility] No Information Visci DO Chace. [address], [place], [id number], [place]. tel:[phone] [facility], [address], [place], [id number], [place] tel:[phone] [facility] No Information Visci DO Chace. [address], [place], [id number], [place]. tel:[phone] [facility], [address], [place], [id number], [place] tel:[phone] [facility] Encounter for screening for respiratory tuberculosis Visci DO Chace. [address], [place], [id number], [place]. tel:[phone] [facility], [address], [place], [id number], [place] tel:[phone] [facility] No Information Visci DO Chace. [address], [place], [id number], [place]. tel:[phone] [facility], [address], [place], [id number], [place] tel:[phone] [facility] Encounter for screening for respiratory tuberculosis Visci DO Chace. [address], [place], [id number], [place]. tel:[phone] Family History Family Member Type Diagnosis Age At Onset No Information Immunizations Vaccine Date Status Comments Hep A (adult) administered Source: New Im munization Record Tdap (Boostrix) administered Source: New Immunization Record Moderna Booster administered Source: New Immunization Record Flulaval/ Fluarix administered Source: Ne w Immunization Record Payers Payer name Insurance type Covered alliance party ID Authoriza tion(s) [employer] CI [id number] [employer] CI [id number] [employer] CI [id number] [employer] CI [id number] Social History Type Description Quantity Date Captured Comments Alcohol Use Details Unknown Caffeine Use Details Unknown Tobacco Use Status No Information Smoking Status No Information Sex Female Sexual Orientation Don't Know Gender Identity Female Chief Complaint And Reason For Visit No [...]
--- OUTSIDE RECORDS SUMMARY | 2025-01-11 11:00 | XMS_ITS | Encounter Summary ---
Author Organization [facility] Address [address] [facility] [place] [address] Care Team Providers Care Machine Setter Name Role Phone Nichole Bartholomew MD Primary Care Provider + [phone] Reason for Visit * Reason Comments repeat pap Encounter Details Date Type Department Care Team (Late st Contact Info) Description 01/11/2025 11:00 AM EDT Procedure Visit [facility] [address] [facility] [place] [phone] Kevon Wang DO [address] [facility] [address] [place] [address] ASCUS with positive high risk HPV cervical; Encounter for repeat Papanicolaou smear of cervix Social History Tobacco Use Types Packs/Day Years Used Date Smoking Tobacco: Never Assessed Comments No Sex and Gender Information Value Date Recorded Sex Assigned at Not on file Legal Sex Female 10:34 AM EDT Gender Identity Not on file Sexual Orientation Not on file documented as of this encounter Last Filed Vital Signs Vital Sign Reading Time Taken Comments Blood Pressure 118/80 01/11/2025 11:11 AM EDT Pulse - - Temperature - - Respiratory Rate - - Oxygen Saturation - - Inhaled Oxygen Concentration - - Weight 116 kg (256 lb 1.9 oz) 01/11/2025 11:11 A M EDT Height - - Body Mass Index 41.34 05/03/2024 11:53 AM EST documented in this encounter Progress Notes * Chaparrita Cadet LPN - 01/11/2025 11:00 AM EDT Reason for Appointment: Patient ID: Aydee Montoya is a 24 y.o. female who presents for repeat pap Patient presents today for Repeat Pap. MEDICATIONS Current Outpatient Medications Medication Instructions amphetamine-dextroamphetamine XR (Adderall XR) 20 MG 24 hr capsule 1 capsule, Daily RT atomoxetine (STRATTERA) 40 mg, Daily RT hydrOXYzine HCl (ATARAX) 25 mg, Daily PRN metFORMIN XR (GLUCOPHAGE-XR) 500 mg, Oral, Daily with evening meal, Do not crush, chew, or split. phentermine (ADIPEX-P) 37.5 mg, Oral, Daily before breakfast spironolactone (ALDACTONE) 100 mg, Daily RT venlafaxine XR (EFFEXOR XR) 75 mg, Daily RT ALLERGIES No Known Allergies PROBLEMS Active Ambulatory Problems Diagnosis Date Noted No Active Ambulatory Problems Resolved Ambulatory Problems Diagnosis Date Noted No Resolved Ambulatory Problems Past Medical History: Diagnosis Date ADHD (attention deficit hyperactivity disorder) Anxiety Depression PCOS (polycystic ovarian syndrome) HISTORY PAST MEDICAL HISTORY SOCIAL HISTORY Past Medical History: Diagnosis Date ADHD (attention deficit hyperactivity disorder) Anxiety Depression PCOS (polycystic ovarian syndrome) Social History Tobacco [...] nursing note reviewed. Exam conducted with a landscape photographer present. Vitals: Estimated body mass index is 41.34 kg/m?? as calculated from the following: Height as of 05/03/24: 5' 6 . Weight as of this encounter: 256 lb 1.9 oz. BP: 118/80 No LMP recorded. Patient has had an implant. ASSESSMENT & PLAN ICD-10-CM 1. ASCUS with positive high risk HPV cervical R87.610 Pap Smear R87.810 2. Encounter for repeat Papanicolaou smear of cervix Z12.4 Pap Smear Repeat Pap: Patient presents today for a repeat pap. Previous pap results were reviewed and noted to be ASCUS and + HPV. Question regarding previous results were discussed. Repeat Pap was obtained without difficulty. Follow Up: Patient is to return to the office in 6 months for an annual exam. Documented by Chaparrita Cadet LPN on behalf of: Kevon Wang DO documented in this encounter Plan of Treatment Upcoming Encounters Date Type Department Care Team (Late st Contact Info) Description 06/13/2025 11:00 AM EST [facility] [address] [facility] [place] [phone] Kevon Wang DO [address] [place] [address] 07/19/2025 10:20 AM EST Procedure Visit [facility] [address] [place] [phone] Kevon Wang DO [address] [place] [address] Scheduled Orders Name Type Priority Associated Diagnoses Orde r Schedule Pap Smear Pathology and Cytology Routine ASCUS with positive high risk HPV cervical Encounter for repeat Papanicolaou smear of cervix Ordered: 01/11/2025 documented as of this encounter Visit Diagnoses Diagnosis ASCUS with positive high risk HPV cervical Encounter for repeat Papanicolaou smear of cervix documented in this encounter Care Teams Machine Setter Relationship Specialty Start Date End Date Nichole Bartholomew MD [address] [place] [address] PCP - General Family Medicine 03/30/24 documented as of this encounter
--- OUTSIDE RECORDS SUMMARY | 2025-01-11 19:15 | XMS_ITS | Clinical Summary ---
Author Organization [facility] Address [address] [facility] [place] [address] Care Team Providers Care Dry Pan Charger Name Role Phone Nichole Bartholomew MD Primary Care Provider [phone] Allergies No known active allergies Medications Fexofenadine-Pseu doephedrine (RODRIGUEZ-D 24 HOUR PO) Take by mouth daily as needed. Active spironolactone 100 MG tablet Take 1 tablet by mouth daily. Active Venlafaxine 75 MG Cap SR 24HR capsule XR Take 1 capsule by mouth daily. 90 capsule 3 03/12/20 24 Active amphetamine-dextr oamphetamine XR 20 MG Cap SR 24HR capsuleIndication s:Attention deficit hyperactivity disorder (ADHD), combined type Take 1 capsule by mouth daily every morning. 30 capsule 12/24/19 25 025 Active metFORMIN-XR 500 MG Tab SR 24 HR Take 1 tablet by mouth daily. 30 tablet 2 11/13/19 25 025 Discontinued amphetamine-dextr oamphetamine XR 20 MG Cap SR 24HR capsuleIndication s:Attention deficit hyperactivity disorder (ADHD), combined type Take 1 capsule by mouth daily every morning. 30 capsule 11/13/19 25 025 Discontinued(Re order) Active Problems Problem Noted Date Diagnosed Date B12 deficiency 01/23/2021 Macromastia 12/01/2019 Chronic back pain 12/01/2019 Obesity: body mass index of 35.0-39.9 08/19/2019 Seasonal affective disorder 10/20/2017 Resolved Problems Problem Noted Date Diagnosed Date Resolved Date Depression 10/20/2017 10/20/2017 Encounters Date Type Department Care Team Description 01/11/2025 1:30 PM EDT Office Visit [address] [place] [address] Nichole Bartholomew MD Bilateral impacted cerumen (Primary Dx); Attention deficit hyperactivity disorder (ADHD), combined type; PCOD (polycystic ovarian disease); Major depressive disorder with single episode, in full remission 12/22/[address] [place] [address] Jonatan Weeks Attention deficit hyperactivity disorder (ADHD), combined type 11/12/2024 11:00 AM EDT Office Visit [address] [place] [address] Nichole Bartholomew MD PCOD (polycystic ovarian disease) (Primary Dx); Attention deficit hyperactivity disorder (ADHD), combined type 10/25/2024 Results Follow-Up [address] [place] [address] Nichole Bartholomew MD B12 & FOLATE, TSH, CBC, EDIF, PLATELET, Additional followed-up results: 7 from Last 3 Months Immunizations Immunization Administration Dates Next Due DTaP 12/13/2003, 0,07/04/1999,04/24,02/05/1999 H1N1 Flu Vaccine 04/12/2009 HIB, Unspecified Formulation 06/27/2000 HPV Vaccine, Nonavalent 01/24/2016 HPV Vaccine, Quadrivalent 12/08/2012,01/15/2011 Hep B/Hib Combined Vaccine 08/29/1999,04/24/1999 ,02/05/1999 Hepatitis A, Adult 08/14/2021 INACTIVATED POLIOVIRUS (IPV) 12/13/2003, 04/10/2000,04/24/1999,03/08,02/05/1999 Influenza, injectable, quadr ivalent, preservative free 05/05/2023,03/07/2022,04/20/2021 MMR Vaccine 12/13/2003,04/10/2000 Meningococcal Vaccine IM (Conjugate) 01/24/2016 Tdap Vaccine 08/14/2021,01/15/2011 Varicella Vaccine 01/29/2000 Family History Medical History Relation Name Comments No known problems Brother 1 No known problems Brother 2 No known problems Father No known problems Maternal Grandfather Breast Cancer Maternal Grandmother Ely dx in her 60s Cancer Mother Anyi Montoya lymphoma Cancer- Other Mother Anyi Montoya Skin cancer on nose GI Disease Mother Anyi Montoya Crohns Other - Specify Mother Anyi Montoya Nonhodgkin s Lymphoma No known problems Paternal Grandfather No known problems Paternal Grandmother Ovarian Cancer Paternal Great Grandmother older age, does not think genetic Colorectal Cancer Neg Hx Uterine Cancer Neg Hx Relation Name Status Comments Brother 1 Alive Brother 2 Alive Father Alive Maternal Grandfather Alive Maternal Grandmother Ely Mother Anyi Montoya Alive Paternal Grandfather Alive Paternal Grandmother Alive Paternal Great Grandmother Alive Social History Tobacco Use Types Packs/Day Years Used Date Smoking Tobacco: Never Smokeless Tobacco: Never Tobacco Cessation:Counseling Given: Not Answered Alcohol Use Standard Drinks/Week Comments No 0 (1 standard drink = 0.6 oz pur e alcohol) Depression Answer Date Recorded PHQ-9 Total Score (Interpret ation of Total Score 1-4 = Minimal depression; 5-9 = Mild depression; 10-14 = Moderate depression; 15-19 = Moderately severe depression) 9 10/07/2024 Comments No Sex and Gender Information Value Date Recorded Sex Assigned at Not on file Legal Sex Female 5:10 PM EST Gender Identity Female 12/12/2016 3:27 PM EDT Sexual Orientation Bisexual 04/20/2024 12 :46 PM EST Last Filed Vital Signs Vital Sign Reading Time Taken Comments Blood Pressure 104/72 01/11/2025 1:33 PM EDT Pulse 90 01/11/2025 1:33 PM EDT Temperature 36.8 C (98.2 F) 01/11/2025 1:33 PM EDT Respiratory Rate 14 01/11/2025 1:33 PM EDT Oxygen Saturation 97% 01/11/2025 1:33 PM EDT Inhaled Oxygen Concentration - - Weight 116.4 kg (256 lb 9.6 oz) 01/11/2025 1:33 PM EDT Height 167.6 cm (5' 6 ) 01/11/2025 1:33 PM EDT Body Mass Index 41.42 01/11/2025 1:33 PM EDT Plan of Treatment Upcoming Encounters Date Type Department Care Team (Late st Contact Info) Description 04/19/2025 9:00 AM EST Office Visit [facility] [address] [facility] [place] [address] Nichole Bartholomew MD [address] [facility] [place] [address] Health Maintenance Due Date Last Done Comments CERVICAL CANCER SCREENING DISCUSSION 03/02/2022 03/02/2021, 03/02/2021, 01/03/2020, Additional history exists CHLAMYDIA SCREEN 01/24/2024 01/23/2023, , 05/07/2022 (Declined) GONORRHEA SCREEN 01/24/2024 01/23/2023, , 05/07/2022 (Declined) COVID-19 VACCINE ( season) 2024 04/20/2021 INFLUENZA VACCINE (#1) 2025 , 05/05/2023, 03/07/2022, Additional history exists POTASSIUM 10/23/2025 10/23/2024, 11/2023, 06/03/2022, Additional history exists TETANUS 08/15/2031 08/14/2021, 04/09 (Previously completed), 01/15/2011, Additional history exists HEP B VACCINE Completed 08/29/1999, 04/09, 02/05/1999 HPV VACCINE ADOL Completed 01/24/2016, 07/2012, 01/15/2011 HPV VACCINE Completed 01/24/2016, 07/2012, 01/15/2011 TDAP (ADULT) Completed 08/14/2021, 02/2011, 12/13/2003, Additional history exists HEPATITIS C VIRUS SCREENING Completed 01/07, 06/25/2022, 05/07/2022 (Declined) HIV SCREENING DISCUSSION Completed 023, 06/25/2022, 05/07/2022 (Declined) PNEUMOCOCCAL VACCINE SERIES Aged Out No longer eligible based on patient's age to complete this topic Procedures Procedure Name Priority Date/Time Associated Diagnosis Comments MA REMOVAL IMPACTED CERUMEN INSTRUMENTATION UNILAT PERFORMABLE Routine 01/11/2025 1:30 PM EDT Bilateral impacted cerumen URINE MICROSCOPIC Routine 10/23/2024 11: 15 AM EDT URINALYSIS, MACRO Today 10/23/2024 11: 15 AM EDT PCOD (polycystic ovarian disease) Weight gain Attention deficit hyperactivity disorder (ADHD), combined type Other fatigue INSULIN Today 10/23/2024 11:09 AM EDT PCOD (polycystic ovarian disease) Weight gain Attention deficit hyperactivity disorder (ADHD), combined type Other fatigue TESTOSTRONE, FREE AND TOTAL Today 10/23/2024 11:09 AM EDT PCOD (polycystic ovarian disease) Weight gain Attention deficit hyperactivity disorder (ADHD), combined type Other fatigue COMPREHENSIVE METABOLIC PANEL Today 10/23/2024 11:09 AM EDT PCOD (polycystic ovarian disease) Weight gain Attention deficit hyperactivity disorder (ADHD), combined type Other fatigue HEMOGLOBIN A1C Today 10/23/2024 11:09 AM EDT PCOD (polycystic ovarian disease) Weight gain Attention deficit hyperactivity disorder (ADHD), combined type Other fatigue LIPID PANEL W CALCULATED LDL Today 10/23/2024 11:09 AM EDT PCOD (polycystic ovarian disease) Weight gain Attention deficit hyperactivity disorder (ADHD), combined type Other fatigue HC CBC EDIFF & PLATELET Today 10/24/19 11:09 AM EDT PCOD (polycystic ovarian disease) Weight gain Attention deficit hyperactivity disorder (ADHD), combined type Other fatigue TSH Today 10/23/2024 11:09 AM EDT PCOD (polycystic ovarian disease) Weight gain Attention deficit hyperactivity disorder (ADHD), combined type Other fatigue B12 & FOLATE Today 10/23/2024 11:09 AM EDT PCOD (polycystic ovarian disease) Weight gain Attention deficit hyperactivity disorder (ADHD), combined type Other fatigue HIV 1 AND 2 ANTIBODIES Routine 9:18 AM EDT Routine screening for STI (sexually transmitted infection) HEPATITIS C ANTIBODY Routine 01/23/2023 9:18 AM EDT Routine screening for STI (sexually transmitted infection) NEISSERIA GONORRHOEAE BY PCR(VAGINITIS PANEL) Routine 01/23/2023 9:06 AM EDT Screening for STDs (sexually transmitted diseases) CHLAMYDIA TRACHOMATIS BY PCR(VAGINITIS PANEL) Routine 01/23/2023 9:06 AM EDT Screening for STDs (sexually transmitted diseases) PAP IG, RFX HPV ASCU Routine 03/02/2021 10:28 AM EDT from Last 3 Months or Most Recently Relevant to Health Maintenance Results * MA REMOVAL IMPACTED CERUMEN INSTRUMENTATION UNILAT PERFORMABLE (01/11/2025 1:30 PM EDT) Anatomical Region Laterality Modality Other Narrative 01/11/2025 1:30 PM EDT Nichole Bartholomew MD 01/11/2025 2:39 PM EAR CERUMEN REMOVAL Date/Time: 01/11/2025 1:30 PM Performed by: Nichole Bartholomew MD Authorized by: Nichole Bartholomew MD Procedure: Visualization: otoscopy Impaction noted: yes Location details: Bilateral ears Local anesthetic: None Procedure type: curette Patient tolerance: Tolerated well, no immediate complications Removed with forcep us Nichole Bartholomew MD BEDSIDE PROCEDURES Final Res ult * (ABNORMAL) URINALYSIS, MACRO (10/23/2024 11:15 AM EDT) Color, Urine YELLOW YELLOW [facility] - [address] - [place] Appearance, Urine CLEAR CLEAR [facility] - [address] - [place] Specific [place], Urine 1.010 1.010 - 1.025 [facility] - [address] - [place] PH URINE 6.0 5.0 - 7.0 [facility] - [address] - [place] Urine Protein NEGATIVE NEGATIVE mg/dl [facility] - [address] - [place] Glucose, Urine NEGATIVE NEGATIVE mg/dl [facility] - [address] - [place] Ketones, Urine NEGATIVE NEGATIVE mg/dl [facility] - [address] - [place] BILIRUBIN, URINE NEGATIVE NEGATIVE [facility] - [address] - [facility] [place] BLOOD, URINE DIPSTICK NEGATIVE NEGATIVE [facility] - [address] - [place] Nitrites, Urine NEGATIVE NEGATIVE [facility] - [address] - [facility] [place] Urobilinogen, Urine 0.2 0.2 - 1.0 E.U./dL [facility] - [address] - [facility] [place] Leukocyte esterase, Urine TRACE(A) NEGATIVE [facility] - [address] - [place] 10/23/2024 11:1 5 AM EDT 10/23/2024 11:46 AM EDT us Nichole Bartholomew MD BODY FLUIDS & STOOLS ORDERAB LES Final Result [facility] - [address] - [facility] [address] [place] [address] * (ABNORMAL) URINE MICROSCOPIC (10/23/2024 11:15 AM EDT) WBC, Urine 1 TO 5 NEGATIVE /HPF [facility] - [address] - [place] RBC, Urine NEGATIVE NEGATIVE /HPF [facility] - [address] - [place] Epithelial Cells UA 10 TO 20 /HPF [facility] - [address] - [place] Mucus TRACE(A) NEGATIVE [facility] - [address] - [place] Bacteria, Urine NEGATIVE NEGATIVE [facility] - [address] - [place] CRYSTALS, URINE NONE NONE [facility] - [address] - [place] CASTS, URINE NONE NONE /LPF [facility] - [address] - [place] COMMENT, URINE POSSIBLY CONTAMINATED SPECIMEN, CULTURE MUST BE ORDERED SEPARATELY IF DEEMED NECESSARY. [facility] - [address] - [place] 10/23/2024 11:1 5 AM EDT 10/23/2024 11:46 AM EDT us Nichole Bartholomew MD BODY FLUIDS & STOOLS ORDERAB LES Final Result [facility] - [address] - [facility] [address] [place] [address] * B12 & FOLATE (10/23/2024 11:09 AM EDT) VITAMIN B12 503 239 - 931 PG/ML [facility] - [address] - [facility] [place] FOLATE 8.8 2.56 - 20.0 NG/ML [facility] - [address] - [place] 10/23/2024 11:0 9 AM EDT 10/23/2024 11:10 AM EDT us Nichole Bartholomew MD HEMATOLOGY ORDERABLES Final Result [facility] - [address] - [place] [address] [facility] [place] [address] * TESTOSTRONE, FREE AND TOTAL (10/23/2024 11:09 AM EDT) TESTOSTERONE 20 [facility] Comment: Reference range: 13 to 71 Unit: ng/dL [facility] Free Test[facility].8 [facility]: Reference range: 0.0 to 4.2 Unit: pg/mL PERFORMED AT [facility] 10/23/2024 11:0 9 AM EDT 10/23/2024 11:10 AM EDT us Nichole Bartholomew MD CHEMISTRY ORDERABLES Final R esult Performing Organization Address City/[facility]/ZIP Co de Phone Number [facility] [address] [place] [address] [facility] [address] [place] [id number] * INSULIN (10/23/2024 11:09 AM EDT) Insulin 13.80 2.30 - 26.0 uIU/mL [facility] - [address] - [place] Blood 10/23/2024 11:0 9 AM EDT 10/23/2024 11:10 AM EDT us Nichole Bartholomew MD ENDOCRINOLOGY Final Result [facility] - [address] - [place] [address] [place] [address] * (ABNORMAL) CBC, EDIF, PLATELET (10/23/2024 11:09 AM EDT) WBC (WHITE BLOOD COUNT) 7.8 3.6 - 11.0 10*3/uL [facility] - [address] - [facility] [place] RBC 5.33 4.0 - 5.4 10*6/uL [facility] - [address] - [facility] HEMOGLOBIN (HGB) 15.6 12.0 - 16.0 G/DL [place] [address] - [facility] HEMATOCRIT (HCT) 44.6 36.0 - 48.0 % [place] [address] - [place] Mean Cell Volume 83.7 80.0 - 100.0 FL [place] [address] - [facility] Mean Cell HGB 29.3 26.0 - 35.0 PG [place] [address] - [facility] Mean Cell HGB Concentration 35.0 27.0 - 37.0 G/DL [place] [address] - [facility] RBC Distribution 12.7 11.5 - 14.5 % [place] [address] - [facility] PLATELET COUNT 332 130 - 400 10*3/uL [place] [id number] - [facility] Mean Platelet Volume 7.1(L) 7.4 - 11.0 FL [place] [address] - [facility] [place] DIFFERENTIAL TYPE AUTO DIFF % [place] [address] - [facility] [place] NEUTROPHILS 68.7 37.0 - 75.0 % [facility] - [address] - [place] LYMPHOCYTE 20.7 20.0 - 55.0 % [facility] - [address] - [place] MONOCYTE % 8.0 0.0 - 10.0 % [facility] - [address] - [place] EOSINOPHIL % 2.6 0.0 - 11.0 % [facility] - [address] - [place] BASOPHIL % 0.0 0.0 - 2.0 % [facility] - [address] - [place] Absolute Neutrophil Count 5.4 1.4 - 6.5 10*3/uL [facility] - [address] - [place] LYMPHOCYTES, ABSOLUTE 1.6 1.2 - 3.4 10*3/uL [facility] - [address] - [place] MONOCYTES, ABSOLUTE 0.6 0.0 - 0.7 10*3/uL [facility] - [address] - [place] ABSOLUTE EOSINOPHIL COUNT 0.2 0.0 - 0.7 10*3/uL [facility] - [address] - [place] ABSOLUTE BASOPHIL COUNT 0.0 0.0 - 0.2 10*3/uL [facility] - [address] - [place] Blood 10/23/2024 11:0 9 AM EDT 10/23/2024 11:10 AM EDT us Nichole Bartholomew MD HEMATOLOGY ORDERABLES Final Result [facility] - [address] - [place] [address] [place] [address] * TSH (10/23/2024 11:09 AM EDT) TSH 1.020 0.46 - 4.68 uIU/ML [facility] - [address] - [facility] [place] Blood 10/23/2024 11:0 9 AM EDT 10/23/2024 11:10 AM EDT Result [facility] Nichole Bartholomew MD ENDOCRINOLOGY Final Result [facility] - [address] - [place] [address] [place] [address] * HEMOGLOBIN A1C (10/23/2024 11:09 AM EDT) HEMOGLOBIN A1C 4.7 0 - 6 % [facility] - [address] - [place] Comment: NORMAL <5.7% PREDIABETES 5.7-6.4% DIABETES 6.5% OR HIGHER Estimated Average Glucose 88 mg/dL [facility] - [address] - [place] Blood 10/23/2024 11:0 9 AM EDT 10/23/2024 11:10 AM EDT Result [facility] Nichole Bartholomew MD HEMATOLOGY ORDERABLES Final Result [facility] - [address] - [place] [address] [place] [address] * (ABNORMAL) LIPID PANEL W CALCULATED LDL (10/23/2024 11:09 AM EDT) CHOLESTEROL 174 107 - 217 MG/DL [facility] - [address] - [facility] TRIGLYCERIDE 103 0 - 150 MG/DL [facility] - [address] - [facility] HDL CHOLESTEROL 46 33 - 75 MG/DL [facility] - [address] - [facility] LDL CHOLESTEROL, CALCULATED 107(H) <100 MG/DL [facility] - [facility] [address] - [facility] VLDL Cholesterol, Calculated 21 5.0 - 25 MG/DL [facility] - [address] - [facility] TCHOL/HDL RATIO, MANUAL ENTER 3.78 RATIO [facility] - [address] - [place] Comment: RISK TOTAL/HDL RATIO MEN WOMEN 1/2 AVERAGE 3.43 3.27 AVERAGE 4.97 4.44 2X AVERAGE 9.55 7.05 3X AVERAGE 23.99 11.04 Blood 10/23/2024 11:0 9 AM EDT 10/23/2024 11:10 AM EDT Nichole Bartholomew MD CHEMISTRY ORDERABLES Final R esult [facility] - [address] - [place] [address] [place] [address] * (ABNORMAL) COMPREHENSIVE METABOLIC PANEL (10/23/2024 11:09 AM EDT) Glucose 104(H) 70 - 100 MG/DL [facility] - [address] - [facility] Comment: NORMAL <100 mg/dL PREDIABETES 101-126 mg/dL DIABETES 126 mg/dL or higher BUN 20 7 - 20 MG/DL [facility] - [facility] [address] - [place] CREATININE SERUM 1.00 0.7 - 1.2 MG/DL [place] [address] - [place] SODIUM 136(L) 137 - 145 MMOL/L [place] [address] - [place] Potassium 4.5 3.5 - 5.1 MMOL/L [place] [address] - [place] CHLORIDE 107 98 - 107 MMOL/L [place] [address] - [place] Comment:Please note: Triglyc eride levels of 600mg/dL or higher may positively bias chloride results by approximately 2.1 mmol CALCIUM 9.4 8.4 - 10.2 MG/DL [place] [address] - [place] PROTEIN, TOTAL 7.6 6.3 - 8.2 GM/DL [place] [address] - [place] Albumin 4.6 3.5 - 5.0 G/dl [place] [address] - [facility] [place] BILIRUBIN, TOTAL 0.6 0.2 - 1.3 MG/DL [place] [address] - [place] AST 24 14 - 36 IU/L [place] [address] - [facility] ALKALINE PHOSPHATASE 118 38 - 126 IU/L [place] [address] - [place] CARBON DIOXIDE (CO2) 21(L) 22 - 30 MMOL/L [place] [address] - [place] A/G Ratio 1.5 1.3 - 2.2 RATIO [place] [address] - [place] ALT 24 <35 IU/L [place] [address] - [place] ESTIMATED GFR, NON AMER 72 ml/min/1. 73sq.m [facility] - [address] - [place] ESTIMATED GFR, 87 ml/min/1. 73sq.m [facility] - [address] - [place] GFR COMMENT Average GFR for 18-29 years old = 116. [facility] - [address] - [place] Comment: Chronic Kidney disease, GFR = <60. Kidney failure, GFR = <15. The GFR estimate is not adjusted for extreme body surface area or acute process, nor has it been validated for women or ethnic groups other than and . Blood 10/23/2024 11:0 9 AM EDT 10/23/2024 11:10 AM EDT us Nichole Bartholomew MD CHEMISTRY ORDERABLES Final R esult [facility] - [address] - [facility] [address] [place] [address] * HEPATITIS C ANTIBODY (01/23/2023 9:18 AM EDT) Hepatitis C Antibody Negative Negative 01/23/2023 1:25 PM EDT [facility] Blood Venipuncture / Unknown 01/23/2023 9:18 AM EDT 01/23/2023 9:44 AM EDT us Camila Lynch MD IMMUNOLOGY ORDERABLES Final R esult [facility] [address] [place] [address] * HIV 1 AND 2 ANTIBODIES (01/23/2023 9:18 AM EDT) HIV-1/HIV-2 Ab With p24 Antigen Non Reactive Non Reactive 01/23/2023 1:22 PM EDT [facility] Blood Venipuncture / Unknown 01/23/2023 9:18 AM EDT 01/23/2023 9:45 AM EDT Camila Lynch MD IMMUNOLOGY ORDERABLES Final R esult Performing Organization Address [facility] Co de Phone Number [facility] [address] [place] [address] * NEISSERIA GONORRHOEAE BY PCR(VAGINITIS PANEL) (01/23/2023 9:06 AM EDT) Neisseria gonorrhea Amplified Probe Not Detected Not Detected HOLOGIC PANTHER 01/24/2023 3:49 PM EDT [facility] Comment:A negative test resu lt for Neisseria gonorrhoeae does not preclude the possibility of infection. Results should be considered in conjunction with other clinical and laboratory findings. Genital Fluid/Swab SPECIMEN FROM VAGINA / Unknown 01/23/2023 9:06 AM EDT 01/23/2023 9:06 AM EDT Narrative [facility] - 01/24/2023 3:49 PM EDT This test was performed using Hand Sander Mediated Amplification for the detection of Chlamydia trachomatis and/or Neisseria gonorrhoeae nucleic acid. This assay is not intended for the evaluation of suspected sexual abuse or other medico-legal indications. us Genoveva Rodgers MD MICROBIOLOGY - GENERAL OR DERABLES Final Result Performing Organization Address City/[facility] Co de Phone Number [facility] [address] [address] * CHLAMYDIA TRACHOMATIS BY PCR(VAGINITIS PANEL) (01/23/2023 9:06 AM EDT) Chlamydia trachomatis Amplified Probe Not Detected Not Detected HOLOGIC PANTHER 01/24/2023 3:49 PM EDT [facility] Comment:A negative test resu lt for Chlamydia trachomatis does not preclude the possibility of infection. Results should be considered in conjunction with other clinical and laboratory findings. Genital Fluid/Swab SPECIMEN FROM VAGINA / Unknown 01/23/2023 9:06 AM EDT 01/23/2023 9:06 AM EDT Narrative [facility] - 01/24/2023 3:49 PM EDT This test was performed using Hand Sander Mediated Amplification for the detection of Chlamydia trachomatis and/or Neisseria gonorrhoeae nucleic acid. This assay is not intended for the evaluation of suspected sexual abuse or other medico-legal indications. Genoveva Rodgers MD MICROBIOLOGY - GENERAL OR DERABLES Final Result [facility] [address] [place] [address] * PAP IG, RFX HPV ASCU (03/02/2021 10:28 AM EDT) DIAGNOSIS Comment [facility] Comment:NEGATIVE FOR INTRAEP ITHELIAL LESION OR MALIGNANCY. Specimen Adequacy: Comment Ashley GAITAN Comment: (NOTE) Satisfactory for evaluation. Endocervical and/or squamous metaplastic cells (endocervical component) are present. Performed by: Comment ALESSIA Kristy MOON Comment:Jose Juan Koo, Toe Closing Machine Tender (ASCP) . . [facility] NOTE Comment [facility] Comment: (NOTE) The Pap smear is a screening test designed to aid in the detection of premalignant and malignant conditions of the uterine cervix. It is not a diagnostic procedure and should not be used as the sole means of detecting cervical cancer. Both false-positive and false-negative reports do occur. . Comment [facility] Comment: (NOTE) The HPV DNA reflex criteria were not met with this specimen result therefore, no HPV testing was performed. No. of containers..01 ThinPrep Vial METHOD TYPE Comment [facility] Comment: (NOTE) This liquid based ThinPrep(R) pap test was screened with the use of an image guided system. PERFORMED AT [facility] 03/02/2021 10:2 8 AM EDT 03/02/2021 6:17 PM EDT Maureen Haynes SUPERVISOR DELIVERY DEPARTMENT-ASSISTANT CHILD CARE TEACHER CYTOLOGY Final R esult [facility] [address] [facility] [place] [id number] from Last 3 Months or Most Recently Relevant to Health Maintenance Insurance MMO AETNA AETNA Care Teams Dry Pan Charger Relationship Specialty Start Date End Date Nichole Bartholomew MD [address] [place] [address] PCP - General Family Medicine 04/09/22
--- OUTSIDE RECORDS SUMMARY | 2025-01-11 19:16 | XMS_ITS | Encounter Summary ---
Author Organization [facility] Address [address] [facility] [place] [address] Care Team Providers Care Machine Operator Hay Stacker Name Role Phone Nichole Bartholomew MD Primary Care Provider + [phone] Encounter Details Date Type Department Care Team (Late Contact Info) Description 01/11/2025 Bamboo flowsheet JENNY GARCIA [address] [place] [address] [place] [address] Kevon Wang DO [address] [facility] [address] Shekhar [place], [place] [address] Social History Tobacco Use Types Packs/Day Years Used Date Smoking Tobacco: Never Assessed Comments No Sex and Gender Information Value Date Recorded Sex Assigned at Not on file Legal Sex Female 10:34 AM EDT Gender Identity Not on file Sexual Orientation Not on file documented as of this encounter Plan of Treatment Upcoming Encounters Date Type Department Care Team (Late Contact Info) Description 06/13/2025 11:00 AM EST Office Visit JENNY GARCIA [address] [place], [place] [address] [address] Kevon Wang DO [address] [place], [facility] 07/19/2025 10:20 AM EST Procedure Visit JENNY GARCIA [address] [place], [place] [address] [address] Kevon Wang DO [address] [place] [address] documented as of this encounter Visit Diagnoses Not on filedocumented in this encounter Care Teams Machine Operator Hay Stacker Relationship Specialty Start Date End Date Nichole Bartholomew MD [address] [place] [address] PCP - General Family Medicine 03/30/24 documented as of this encounter
--- OUTSIDE RECORDS SUMMARY | 2025-01-11 19:17 | XMS_ITS | Clinical Summary ---
Author Organization [facility] Address [address] [place] [address] Care Team Providers Care Reversal Print Inspector Name Role Phone Unavailable Primary Care Provider Unavailabl e Social History Tobacco Use Types Packs/Day Years Used Date Smoking Tobacco: Never Assessed Comments Unknown Sex and Gender Information Value Date Recorded Sex Assigned at Not on file Legal Sex Female 4:21 PM EDT Gender Identity Not on file Sexual Orientation Not on file Plan of Treatment Health Maintenance Due Date Last Done Comments HPV Vaccines (1 - 3-dose series) 2013 DTaP,Tdap,and Td Vaccines (1 - Tdap) 2017 Hepatitis B Vaccines (1 of 3 - 19+ 3-dose series) 2017 Cervical Cancer Screening: P ap Smear 12/04/2019 COVID-19 Vaccine ( - 2023-2 5 season) 2024 Depression Screening 06/09/2024 Influenza Vaccine (#1) 2025 HIB Vaccines Aged Out No longer eligi ble based on patient's age to complete this topic Hepatitis A Vaccines Aged Out No long er eligible based on patient's age to complete this topic IPV Vaccines Aged Out No longer eligi ble based on patient's age to complete this topic MMR Vaccines Aged Out No longer eligi ble based on patient's age to complete this topic Meningococcal ACWY Vaccine Aged Out N o longer eligible based on patient's age to complete this topic Meningococcal B Vaccine Aged Out No l onger eligible based on patient's age to complete this topic Pneumococcal Vaccine: Pediat rics (0 to 5 Years) and At-Risk Patients (6 to 49 Years) Aged Out No longer eligible b ased on patient's age to complete this topic RSV Immunization Patients Un sandra 20 months Aged Out No longer eligible b ased on patient's age to complete this topic Varicella Vaccines Aged Out No longer eligible based on patient's age to complete this topic
--- OUTSIDE RECORDS SUMMARY | 2025-01-11 19:17 | XMS_ITS | Clinical Summary ---
Author Organization [facility] Address [address] [place] [address] Care Team Providers Care Distribution Field Technician Name Role Phone Nichole Bartholomew MD Primary Care Provider [phone] Allergies No known active allergies Medications atomoxetine (Strattera) 40 MG capsule Take 40 mg by mouth in the morning. 03/12/2024 Active venlafaxine XR (Effexor XR) 75 MG 24 hr capsule Take 75 mg by mouth in the morning. 03/12/2024 Active spironolactone (Aldactone) 100 MG tablet Take 100 mg by mouth in the morning. Active hydrOXYzine HCl (Atarax) 25 MG tablet Take 25 mg by mouth Daily as needed 09/09/2023 Active metFORMIN XR (Glucophage-XR) 500 MG 24 hr tabletIndicatio ns:Insulin resistance Take 1 tablet (500 mg) by mouth in the evening. Take with meals Do not crush, chew, or split. 30 tablet 11 03/30/2024 Active phentermine (Adipex-P) 37.5 MG tabletIndicatio ns:Encounter for weight management Take 1 tablet (37.5 mg) by mouth in the morning. Take before meals. 30 tablet 06/28/2024 Active amphetamine-dex troamphetamine XR (Adderall XR) 20 MG 24 hr capsule Take 1 capsule by mouth in the morning. 12/23/2024 Active Hospital, Clinic, or Other Facility Administered Medication Ordered Dose Route Frequency Start Date End Date Status Levonorgestrel intrauterine device 52 mgIndications:Encounter for IUD insertion 52 mg IU Continuous 05/03/2024 05/02/2029 Active Encounters Date Type Department Care Team Description 01/11/2025 11:00 AM EDT Procedure Visit JENNY GARCIA [address] [place] [address] [place] [address] Kevon Wang DO ASCUS with positive high risk HPV cervical; Encounter for repeat Papanicolaou smear of cervix 01/11/2025 Bamboo flowsheet JENNY GARCIA [address] [place] [address] [place] [address] Kevon Wang DO from Last 3 Months Family History Medical History Relation Name Comments Hodgkin's lymphoma Mother Skin cancer-nose Mother Relation Name Status Comments Mother Social History Tobacco Use Types Packs/Day Years Used Date Smoking Tobacco: Never Assessed Comments No Sex and Gender Information Value Date Recorded Sex Assigned at Not on file Legal Sex Female 10:34 AM EDT Gender Identity Not on file Sexual Orientation Not on file Last Filed Vital Signs Vital Sign Reading Time Taken Comments Blood Pressure 118/80 01/11/2025 11:11 AM EDT Pulse - - Temperature - - Respiratory Rate - - Oxygen Saturation - - Inhaled Oxygen Concentration - - Weight 116 kg (256 lb 1.9 oz) 01/11/2025 11:11 A M EDT Height 167.6 cm (5' 6 ) 05/03/2024 11:53 AM EST Body Mass Index 41.34 05/03/2024 11:53 AM EST Plan of Treatment Upcoming Encounters Date Type Department Care Team (Late st Contact Info) Description 06/13/2025 11:00 AM EST Office Visit JENNY GARCIA [address] [place] [address] [place] [address] Kevon Wang DO [address] [place], [place] [id number] 07/19/2025 10:20 AM EST Procedure Visit JENNY GARCIA [address] [place] [address] [place] [address] Kevon Wang DO [address] [place] [address] Health Maintenance Due Date Last Done Comments Influenza Vaccine (#1) 2025 , 05/05/2023, 03/07/2022, Additional history exists Insurance [employer] Care Teams Distribution Field Technician Relationship Specialty Start Date End Date Nichole Bartholomew MD [address] [place] [id number] PCP - General Family Medicine 03/30/24
--- OUTSIDE RECORDS SUMMARY | 2025-01-11 19:17 | XMS_ITS | Clinical Summary ---
Author Organization [facility] Address [facility] [place] [address] Care Team Providers Care Counter Caser Name Role Phone Nichole Bartholomew MD Primary Care Provider + [phone] Allergies No known active allergies Medications atomoxetine (STRATTERA) 25 MG capsule Take 1 (one) capsule (25 mg total) by mouth daily . 09/09/2023 Active hydrOXYzine (ATARAX) 25 MG tablet Take 1 (one) tablet (25 mg total) by mouth nightly as needed . 09/09/2023 Active spironolactone (ALDACTONE) 100 MG tablet Take 1 (one) tablet (100 mg total) by mouth daily . Active venlafaxine (EFFEXOR-XR) 75 MG 24 hr capsule Take 1 (one) capsule (75 mg total) by mouth daily . 02/14/2023 Active tirzepatide (Mounjaro) 10 mg/0.5 mL Pen Inject 0.5 mg under the skin once a week . Active fexofenadine-ps eudoePHEDrine (RODRIGUEZ-D 24) 180-240 mg per 24 hr tablet Take 1 (one) tablet by mouth daily as needed . Active Active Problems Problem Noted Date Diagnosed Date Depression 12/06/2023 Obesity, Class II, BMI 35-39.9 08/19/2019 Resolved Problems Problem Noted Date Diagnosed Date Resolved Date Acute calculous cholecystitis 12/06/2023 12/24/2023 Assessment & Plan (12/08/2023 8:40 AM EDT): - Hemodynamics stable, afebrile, on RA - Hgb: - AST decreased - Pain: [place] and Tylenol with IV Dilaudid for breakthrough pain - Diet: Low fat - Dressing: Steri-strips - Urine output is good - Pulmonary toilet: IS q1h WA, encouraged use - Activity as tolerated, encouraged ambulation - VTE prophylaxis with SCDs and ambulation - MRCP due to concern for stone in duct Social History Tobacco Use Types Packs/Day Years Used Date Smoking Tobacco: Never Passive Smoke Exposure: Never Smokeless Tobacco: Never Tobacco Cessation:Counseling Given: Not Answered Alcohol Use Standard Drinks/Week Comments Never 0 (1 standard drink = 0.6 oz pur e alcohol) [facility] Utilities Answer Date Recorded In the past 12 months has e electric, gas, oil, or water company threatened to shut off services in your home? No 12/06/2023 Humiliation, Afraid, Rape, and Kick questionnair e Answer Date Recorded Within the last year, have y ou been afraid of your partner or ex-partner? No 12/06/2023 Within the last year, have y ou been humiliated or emotionally abused in other ways by your partner or ex-partner? No 12/06/2023 Within the last year, have y ou been kicked, hit, slapped, or otherwise physically hurt by your partner or ex-partner? No 12/06/2023 Sexually Abused Not on file 12/06/2023 Hunger Vital Sign Answer Date Recorded Within the past 12 months, y ou worried that your food would run out before you got the money to buy more. Never true 12/06/19 24 Within the past 12 months, t he food you bought just didn't last and you didn't have money to get more. Never true 12/06/2023 PRAPARE - Transportation Answer Date Re corded In the past 12 months, has l ack of transportation kept you from medical appointments or from getting medications? No 11/08 In the past 12 months, has l ack of transportation kept you from meetings, work, or from getting things needed for daily living? No 12/06/2023 Housing Stability Vital Sign Answer Fidel e Recorded In the last 12 months, was t here a time when you were not able to pay the mortgage or rent on time? No 12/06/2023 In the past 12 months, how m any times have you moved where you were living? 1 12/06/2023 At any time in the past 12 m [facility], were you homeless or living in a penitentiary (including now)? No 12/06/2023 Comments No Sex and Gender Information Value Date Recorded Sex Assigned at Not on file Legal Sex Female 9:05 AM EST Gender Identity Not on file Sexual Orientation Not on file Last Filed Vital Signs Vital Sign Reading Time Taken Comments Blood Pressure 111/81 12/24/2023 8:49 AM EDT Pulse 98 12/24/2023 8:49 AM EDT Temperature 37.1 C (98.8 F) 12/08/2023 11:28 AM EDT Respiratory Rate 18 12/08/2023 11:56 AM EDT Oxygen Saturation 97% 12/24/2023 8:49 AM EDT Inhaled Oxygen Concentration - - Weight 99.8 kg (220 lb) 12/24/2023 8:49 AM EDT Height 167.6 cm (5' 6 ) 12/24/2023 8:49 AM EDT Body Mass Index 35.51 12/24/2023 8:49 AM EDT Plan of Treatment Health Maintenance Due Date Last Done Comments Depression Screening/Follow-Up (PHQ-2/9) 2010 HIV Screening 2013 Hepatitis C Screening 2016 Pap Smear 12/04/2019 Tetanus: Every 10yrs 01/15/2021 01/15/2011 Wellness Visit 06/25/2023 06/25/2022, 02/08, 01/03/2020, Additional history exists COVID-19 Vaccine ( season) 2024 Influenza Vaccine (#1) 2025 Pneumococcal Vaccine: Ped or At-Risk Aged Out No longer eligible based on patient's age to complete this topic Insurance AETNA CHOICE POS/POSII/PREMIER CARE/PREMIER CARE PLUS Advance Directives For more information, please contact: [phone] * Full Code - Unverified (Latest Code Status on File) Date Activated Date Inactivated Comments 12/06/2023 10:08 PM 12/08/2023 7:26 PM Care Teams Counter Caser Relationship Specialty Start Date End Date Nichole Bartholomew MD [address] [place] [address] PCP - General Family Medicine 12/06/23
--- OUTSIDE RECORDS SUMMARY | 2025-01-11 19:17 | XMS_ITS | Clinical Summary ---
Author Organization [facility] Address [address] [place] [address] Care Team Providers Care Crown Ceramist Name Role Phone RomieEric Primary Care Provider [phone] Social History Tobacco Use Types Packs/Day Years Used Date Smoking Tobacco: Never Assessed Comments Unknown Sex and Gender Information Value Date Recorded Sex Assigned at Not on file Legal Sex Female 3:29 PM EST Gender Identity Not on file Sexual Orientation Not on file Plan of Treatment Health Maintenance Due Date Last Done Comments MMR Vaccine (1 of 1 - Standa rd series) 12/04/1999 DTaP/Tdap/Td Vaccine (1 - Tdap) 2005 Varicella Vaccine (1 of 2 - 13+ 2-dose series) 12/04/2011 HPV Vaccine (1 - 3-dose series) 2013 Hepatitis B Vaccine (1 of 3 - 19+ 3-dose series) 2017 COVID-19 Vaccine ( - 2023-2 5 season) 2024 Influenza Vaccine (#1) 2025 HIB Vaccine Aged Out No longer eligi ble based on patient's age to complete this topic Hepatitis A Vaccine Aged Out No longe r eligible based on patient's age to complete this topic IPV Vaccine Aged Out No longer eligi ble based on patient's age to complete this topic Meningococcal ACWY Vaccine Aged Out N o longer eligible based on patient's age to complete this topic Meningococcal B Vaccine Aged Out No l onger eligible based on patient's age to complete this topic Pneumococcal Vaccine Aged Out No long er eligible based on patient's age to complete this topic RSV, Nirsevimab Immunization Aged Out No longer eligible based on patient's age to complete this topic Rotavirus Vaccine Aged Out No longer eligible based on patient's age to complete this topic Insurance AETNA Care Teams Crown Ceramist Relationship Specialty Start Date End Date Eric Grubbs [address] [place] [address] PCP - General Family Medicine 04/24/20
[2025-01-17 14:13] LABS: Pap IG (Image Guided) Note (.)
== END 2025-01-11 19:11 | disposition home or self-care (01) ==
LOC: LAB 19:10
PROVIDERS: Visit Provider Obstetrics & Gynecology
DX: R87.610 Atypical squamous cells of undetermined significance on cytologic smear of cervix (ASC-US) (principal); R87.810 Cervical high risk human papillomavirus (HPV) DNA test positive; Z12.4 Encounter for screening for malignant neoplasm of cervix
CPT/HCPCS: 88175